=== PATIENT | male | born 1930 | race African-American/Black ===

== ENCOUNTER → 2016-05-29 | Outpatient (CLI) | payer MEDICARE, OTHER ==
[2016-05-29 11:18] LABS: HEMATOCRIT 34.1 % (37.9-51.0); HEMOGLOBIN 11.3 g/dL (13.5-17.0); HGB HCT DIFFERENCE -0.2; MEAN CORPUSCULAR HGB CONC 33.1 g/dL (32.0-36.0); MEAN CORPUSCULAR VOLUME 88 fl (80-97); RED BLOOD COUNT 3.88 10^6/uL (4.35-5.55); RED CELL DISTRIBUTION WIDTH 13.5 % (11.5-14.0)
[2016-05-29 11:30] LABS: APPEARANCE,URINE SLIGHTLY-CLOUDY; BILIRUBIN,URINE NEGATIVE (NEGATIVE); GLUCOSE, URINE 50 mg/dL (NEGATIVE); KETONES,URINE NEGATIVE (NEGATIVE); LEUKOCYTE ESTERASE,URINE TRACE (NEGATIVE); NITRITE,URINE NEGATIVE (NEGATIVE); PROTEIN,URINE >=500 mg/dL (NEGATIVE); URINE SPECIFIC GRAVITY 1.016; UROBILINOGEN,URINE NEGATIVE mg/dL (<2.0)
[2016-05-29 11:43] LABS: ANION GAP 10 (5-19); BLOOD UREA NITROGEN 35 mg/dL (7-20); CALCIUM 9.3 mg/dL (8.4-10.2); CARBON DIOXIDE 23 mmol/L (22-30); CHLORIDE 108 mmol/L (98-107); GLUCOSE 123 mg/dL (75-110); POTASSIUM 5.4 mmol/L (3.6-5.0); SODIUM 141.2 mmol/L (137-145)
== END ==
LOC: OD 10:22
PROVIDERS: ATTEND Internal Medicine Nephrology
DX: N18.2 Chronic kidney disease, stage 2 (mild) (principal); R80.9 Proteinuria, unspecified; E11.9 Type 2 diabetes mellitus without complications
CPT/HCPCS: 36415; 80048; 81001; 85027

== ENCOUNTER → 2016-09-13 | Outpatient (CLI) | payer MEDICARE, OTHER ==
--- NOTE | 2016-09-13 12:23 | XCELERA REPORT ---
[address] [address] Lower Extremity Venous Evaluation Name: MILO ORBB Age: 86 yrs Gender: Male : 1930 Patient Status: Outpatient Patient Location: Study Date: 09/13/2016 08:48 AM Procedure: A bilateral duplex scan of the lower extremity veins was performed. The evaluation included responses to compression and other maneuvers with patient in the supine and standing positions to assess venous insufficiency. Reason For Study: ULCER/PVD Ordering Physician: LISA DELEON Performed By: Crissy Silveira Right Sided Venous Evaluation Deep venous system evaluatiion shows patent veins with no obstruction or significant reflux identified. Sapheno Femoral junction: no reflux. Femoral vein reflux: no reflux. Greater Saphenous vein, Proximal thigh: reflux: no reflux. Greater Saphenous vein, Distal thigh: reflux: no reflux. Greater Saphenous vein, Proximal below knee: reflux: no reflux. No significant Perforators identified. Left Sided Venous Evaluation Deep venous system evaluatiion shows patent veins with no obstruction or significant reflux identified. Sapheno Femoral junction: no reflux. Femoral vein reflux: no reflux. Greater Saphenous vein, Proximal thigh: reflux: no reflux. Greater Saphenous vein, Distal thigh: reflux: no reflux. Greater Saphenous vein, Proximal below knee: reflux: no reflux. No significant Perforators identified. Interpretation Summary No duplex evidence of DVT or obstruction in the bilateral lower extremities. No significant venous reflux identified. : LISA DELEON > Lisa Deleon
--- NOTE | 2016-09-13 12:30 | XCELERA REPORT ---
[address] [address] Lower Extremity Arterial Evaluation Name: MILO ROBB Age: 86 yrs Gender: Male : 1930 Patient Status: Outpatient Patient Location: Study Date: 09/13/2016 08:20 AM Procedure: A color flow and duplex scan of the lower extremity arteries was performed bilaterally with velocity and waveform anaylsis. Reason For Study: ULCER/PVD Ordering Physician: LISA DELEON Performed By: Crissy Silveira Measurements and Calculations Right Left TRAVELING BUYER PSV 44.3 74.4 cm/sec Prox PFA PSV -24.4 44.1 cm/sec Prox SFA PSV 40.0 61.6 cm/sec Mid SFA PSV -50.5 -85.9 cm/sec Dist SFA PSV -54.1 -94.8 cm/sec Prox Pop A PSV 27.9 43.7 cm/sec Dist ILIANA PSV 73.3 65.6 cm/sec Prox GEOSPATIAL EXTRACTOR ANALYSIS PSV 30.3 41.9 cm/sec Dist Raquel A PSV 48.8 67.4 cm/sec Tonny Pedis PSV 13.9 18.6 cm/sec Right Side Arterial Evaluation Reduced velocity and monophasic waveforms noted from the Common Femoral artery to the infrageniculate vessels. Occluded distal Posterior Tibial artery, 50-99 % stenosis at the Aorta Iliac arteries. With sequential disease. Ankle Brachial index was not done. Left Side Arterial Evaluation Normal velocity and triphasic waveforms noted in the Common Femoral artery. Biphasic in the Popliteal, to the Anterior Tibial artery . occluded posterior Tibial artery. 20-49 % stenosis at the Femoral artery. Ankle Brachial index is 1.00. Interpretation Summary Severe hemodynamically significant lesions in the right lower extremity only, on duplex imaging, at rest. Moderate hemodynamically significant lesions in the left lower extremity only, on duplex imaging, at rest. : LISA DELEON > Lisa Deleon
== END ==
LOC: SP 07:57
PROVIDERS: ATTEND Surgery
DX: I73.9 Peripheral vascular disease, unspecified (principal); L97.312 Non-pressure chronic ulcer of right ankle with fat layer exposed
CPT/HCPCS: 93925; 93970

== ENCOUNTER → 2016-10-17 | Outpatient (CLI) | payer MEDICARE, OTHER ==
[2016-10-17 11:40] LABS: CREATININE RESULT 1.84 mg/dL (0.52-1.25)
== END ==
LOC: OD 10:34
PROVIDERS: ATTEND Surgery Vascular Surgery
DX: Z51.81 Encounter for therapeutic drug level monitoring (principal); Z79.899 Other long term (current) drug therapy
CPT/HCPCS: 36415; 82565

== ENCOUNTER → 2016-12-13 | Outpatient (CLI) | payer MEDICARE, OTHER ==
--- NOTE | 2016-12-15 10:01 | XCELERA REPORT ---
[address] [address] Lower Extremity Arterial Evaluation Name: MILO ROBB Age: 86 yrs Gender: Male : 1930 Patient Status: Outpatient Patient Location: Study Date: 12/13/2016 02:07 PM Procedure: A color flow and duplex scan of the lower extremity arteries was performed on the right with velocity and waveform anaylsis. Ankle brachial indicies performed. Reason For Study: RLE ULCER, FOLLOW UP ARTERIOGRAM Ordering Physician: LISA DELEON Performed By: Erlinda Casper Measurements and Calculations Right Left ORGANIZATIONAL PSYCHOLOGIST PSV 67.7 cm/sec Prox PFA PSV 52.2 cm/sec Prox SFA PSV 64.4 cm/sec Mid SFA PSV -82.1 cm/sec Dist SFA PSV -117.9 cm/sec Prox Pop A PSV 45.8 cm/sec Dist ILIANA PSV 104.6 cm/sec Dist BICYCLE MESSENGER PSV 31.2 cm/sec Tonny Pedis PSV 21.2 cm/sec Right Side Arterial Evaluation Slightly reduced velocity and biphasic waveforms noted from the Common Femoral artery to the Popliteal artery. Biphasic in the Anterior Tibial and monophasic in the Posterior Tibial artery , Monophasic Dorsalis Pedis. Fairly well maintained amplitude distally 20-49 % stenosis at the Aorta Iliac. With sequential disease. Ankle Brachial index not obtained due to non compressibility. Interpretation Summary Moderate hemodynamically significant lesions in the right lower extremity only, on duplex imaging, at rest. : LISA DELEON > Lisa Deleon
== END ==
LOC: SP 13:41
PROVIDERS: ATTEND Surgery
DX: L97.212 Non-pressure chronic ulcer of right calf with fat layer exposed (principal)
CPT/HCPCS: 93926

== ENCOUNTER → 2017-01-04 | Outpatient (CLI) | payer MEDICARE, OTHER ==
[2017-01-04 16:17] LABS: ABSOLUTE BASOPHILS # (AUTO) 0.1 10^3/uL (0.0-0.2); ABSOLUTE EOSINOPHILS # (AUTO) 0.4 10^3/uL (0.0-0.6); ABSOLUTE LYMPHOCYTES (AUTO) 1.4 10^3/uL (0.5-4.7); ABSOLUTE MONOCYTES (AUTO) 0.8 10^3/uL (0.1-1.4); ABSOLUTE NEUT (AUTO) 3.4 10^3/uL (1.7-8.2); BASOPHILS % (AUTO) 1.1 % (0-2); EOSINOPHILS % (AUTO) 6.2 % (0-6); HEMATOCRIT 29.2 % (37.9-51.0); HEMOGLOBIN 9.6 g/dL (13.5-17.0); HGB HCT DIFFERENCE -0.4; LYMPHOCYTES % (AUTO) 22.7 % (13-45); MEAN CORPUSCULAR HEMOGLOBIN 30.1 pg (27.0-33.4); MEAN CORPUSCULAR HGB CONC 33.1 g/dL (32.0-36.0); MEAN CORPUSCULAR VOLUME 91 fl (80-97); MONOCYTES % (AUTO) 12.8 % (3-13); RED BLOOD COUNT 3.21 10^6/uL (4.35-5.55); RED CELL DISTRIBUTION WIDTH 14.1 % (11.5-14.0); SEGMENTED NEUTROPHILS % (AUTO) 57.2 % (42-78)
[2017-01-04 16:40] LABS: ALANINE AMINOTRANSFERASE 21 U/L (21-72); ALBUMIN 3.1 g/dL (3.5-5.0); ALKALINE PHOSPHATASE 107 U/L (38-126); ANION GAP 9 (5-19); ASPARTATE AMINO TRANSFERASE 15 U/L (17-59); BILIRUBIN,DIRECT 0.4 mg/dL (0.0-0.4); BILIRUBIN,TOTAL 0.4 mg/dL (0.2-1.3); BLOOD UREA NITROGEN 33 mg/dL (7-20); C-REACTIVE PROTEIN 17.6 mg/L (<10.0); CALCIUM 8.7 mg/dL (8.4-10.2); CARBON DIOXIDE 21 mmol/L (22-30); CHLORIDE 109 mmol/L (98-107); GLUCOSE 134 mg/dL (75-110); POTASSIUM 4.1 mmol/L (3.6-5.0); SODIUM 139.2 mmol/L (137-145); TOTAL PROTEIN 6.4 g/dL (6.3-8.2)
[2017-01-04 16:57] LABS: ERYTHROCYTE SEDIMENTATION RATE 69 mm/hr (0-20)
== END ==
LOC: OD 15:02
PROVIDERS: ATTEND Surgery
DX: L97.212 Non-pressure chronic ulcer of right calf with fat layer exposed (principal)
CPT/HCPCS: 36415; 80053; 85025; 85652; 86140

== ENCOUNTER → 2017-01-24 | Outpatient (CLI) | payer MEDICARE, OTHER ==
[2017-01-24 13:56] LABS: ABSOLUTE BASOPHILS # (AUTO) 0.1 10^3/uL (0.0-0.2); ABSOLUTE EOSINOPHILS # (AUTO) 0.3 10^3/uL (0.0-0.6); ABSOLUTE LYMPHOCYTES (AUTO) 1.5 10^3/uL (0.5-4.7); ABSOLUTE MONOCYTES (AUTO) 1.1 10^3/uL (0.1-1.4); BASOPHILS % (AUTO) 0.7 % (0-2); EOSINOPHILS % (AUTO) 3.7 % (0-6); HEMATOCRIT 29.3 % (37.9-51.0); HGB HCT DIFFERENCE 0.7; MEAN CORPUSCULAR HEMOGLOBIN 30.5 pg (27.0-33.4); MEAN CORPUSCULAR HGB CONC 34.2 g/dL (32.0-36.0); MEAN CORPUSCULAR VOLUME 89 fl (80-97); MONOCYTES % (AUTO) 14.1 % (3-13); RED BLOOD COUNT 3.28 10^6/uL (4.35-5.55); RED CELL DISTRIBUTION WIDTH 13.7 % (11.5-14.0); SEGMENTED NEUTROPHILS % (AUTO) 62.5 % (42-78)
== END ==
LOC: LAB 13:16
PROVIDERS: ATTEND Surgery
DX: L97.212 Non-pressure chronic ulcer of right calf with fat layer exposed (principal)
CPT/HCPCS: 36415; 85025

== ENCOUNTER 2017-02-05 15:45 | Inpatient (IN) | payer MEDICARE, OTHER ==
[2017-02-05] MEDS ORDERED: INFLUENZA ADLT QUAD (36MOS+) 2017-18 VAC 0.5 ML SYR IM PRN (18:05)
--- NOTE | 2017-02-05 18:47 | RADIOLOGY REPORT (SQ) ---
EXAM DESCRIPTION: CHEST SINGLE VIEW COMPLETED DATE/TIME: 02/05/2017 6:25 pm REASON FOR STUDY: hypertension emergency COMPARISON: 12/08/2012 EXAM PARAMETERS: NUMBER OF VIEWS: One view. TECHNIQUE: Single frontal radiographic view of the chest acquired. RADIATION DOSE: NA LIMITATIONS: None. FINDINGS: LUNGS AND PLEURA: Stable chronic lung change without new opacities, masses or pneumothorax . No pleural effusion. MEDIASTINUM AND HILAR STRUCTURES: No masses. Contour normal. HEART AND VASCULAR STRUCTURES: Heart stable in size. Normal vasculature. BONES: No acute findings. HARDWARE: None in the chest. OTHER: No other significant finding. IMPRESSION: NO ACUTE RADIOGRAPHIC FINDING IN THE CHEST. NO SIGNIFICANT CHANGE FROM PRIOR STUDY. TECHNICAL DOCUMENTATION: JOB ID: [id number] [employer]- All Rights Reserved
[2017-02-05 19:14] LABS: ABSOLUTE BASOPHILS # (AUTO) 0.1 10^3/uL (0.0-0.2); ABSOLUTE EOSINOPHILS # (AUTO) 0.3 10^3/uL (0.0-0.6); ABSOLUTE LYMPHOCYTES (AUTO) 1.4 10^3/uL (0.5-4.7); ABSOLUTE MONOCYTES (AUTO) 0.8 10^3/uL (0.1-1.4); ABSOLUTE NEUT (AUTO) 4.5 10^3/uL (1.7-8.2); BASOPHILS % (AUTO) 0.9 % (0-2); EOSINOPHILS % (AUTO) 3.9 % (0-6); HEMATOCRIT 32.1 % (37.9-51.0); HEMOGLOBIN 10.6 g/dL (13.5-17.0); HGB HCT DIFFERENCE -0.3; LYMPHOCYTES % (AUTO) 20.2 % (13-45); MEAN CORPUSCULAR HEMOGLOBIN 29.9 pg (27.0-33.4); MEAN CORPUSCULAR VOLUME 91 fl (80-97); MONOCYTES % (AUTO) 11.8 % (3-13); RED BLOOD COUNT 3.54 10^6/uL (4.35-5.55); RED CELL DISTRIBUTION WIDTH 13.3 % (11.5-14.0); SEGMENTED NEUTROPHILS % (AUTO) 63.2 % (42-78); WHITE BLOOD COUNT 7.1 10^3/uL (4.0-10.5)
[2017-02-05 19:41] LABS: ALANINE AMINOTRANSFERASE 22 U/L (21-72); ALBUMIN 3.8 g/dL (3.5-5.0); ALKALINE PHOSPHATASE 112 U/L (38-126); ANION GAP 14 (5-19); ASPARTATE AMINO TRANSFERASE 20 U/L (17-59); BILIRUBIN,DIRECT 0.4 mg/dL (0.0-0.4); BILIRUBIN,TOTAL 0.5 mg/dL (0.2-1.3); BLOOD UREA NITROGEN 30 mg/dL (7-20); CALCIUM 9.1 mg/dL (8.4-10.2); CARBON DIOXIDE 23 mmol/L (22-30); CHLORIDE 109 mmol/L (98-107); CREATINE KINASE 108 U/L (55-170); CREATININE RESULT 1.86 mg/dL (0.52-1.25); GLUCOSE 106 mg/dL (75-110); POTASSIUM 4.2 mmol/L (3.6-5.0); SODIUM 145.7 mmol/L (137-145); TOTAL PROTEIN 7.8 g/dL (6.3-8.2)
[2017-02-05 20:20] LABS: CREATINE KINASE MB 0.75 ng/mL (<4.55)
[2017-02-05 20:25] LABS: TROPONIN I < 0.012 ng/mL
[2017-02-05] MEDS ORDERED: NORMAL SALINE 1000 ML 1,000 ML IV PRN (20:39)
[2017-02-05] MEDS ORDERED: NITROGLYCERIN/D5W 50 MG/250 ML RTUINJ IV PRN (20:43)
[2017-02-05] MEDS ORDERED: SAXAGLIPTIN HYDROCHLORIDE 2.5 MG PO SCH (20:45)
[2017-02-05] MEDS ORDERED: (PENDING PHARMACY ID) (Metoprolol Succinate [Toprol Xl 200 Mg Tablet] 200 MG) PO SCH (20:45)
[2017-02-05] MEDS ORDERED: ASPIRIN 81 MG TABLET, CHEWABLE PO ONE (21:00)
[2017-02-05] MEDS ORDERED: FINASTERIDE 5 MG TABLET PO ONE (21:00)
[2017-02-05] MEDS ORDERED: TAMSULOSIN HCL 0.4 MG CAP.SR.24H PO ONE (21:00)
[2017-02-05] MEDS ORDERED: SITAGLIPTIN PHOSPHATE 50 MG TABLET PO ONE (21:15)
[2017-02-05] MEDS ORDERED: METOPROLOL SUCCINATE 50 MG TAB.SR.24H PO ONE (21:15)
[2017-02-05] MEDS ORDERED: TIMOLOL MALEATE 0.5% OPH SOLN 5 ML OS ONE (22:00)
[2017-02-05] MEDS: LISINOPRIL 10 MG TABLET PO SCH (22:36)
[2017-02-05] MEDS: DOXEPIN HCL 10 MG CAPSULE PO SCH (22:37)
[2017-02-06 03:17] LABS: APPEARANCE,URINE CLEAR; BILIRUBIN,URINE NEGATIVE (NEGATIVE); GLUCOSE, URINE 50 mg/dL (NEGATIVE); KETONES,URINE NEGATIVE (NEGATIVE); LEUKOCYTE ESTERASE,URINE TRACE (NEGATIVE); NITRITE,URINE NEGATIVE (NEGATIVE); PROTEIN,URINE >=500 mg/dL (NEGATIVE); UROBILINOGEN,URINE NEGATIVE mg/dL (<2.0)
[2017-02-06 04:01] LABS: CREATINE KINASE MB 0.59 ng/mL (<4.55)
[2017-02-06 04:08] LABS: TROPONIN I < 0.012 ng/mL
--- NOTE | 2017-02-06 07:58 | EKG REPORT ---
SEVERITY:- BORDERLINE ECG - SINUS RHYTHM PROBABLE LEFT ATRIAL ABNORMALITY BORDERLINE LEFT AXIS DEVIATION BORDERLINE PROLONGED QT INTERVAL : Confirmed by: Moses Olea MD 06-Feb-2017 07:57:26
[2017-02-06] MEDS: ASPIRIN 81 MG TABLET, CHEWABLE PO SCH (09:13)
[2017-02-06] MEDS: FINASTERIDE 5 MG TABLET PO SCH (09:13)
[2017-02-06] MEDS: TAMSULOSIN HCL 0.4 MG CAP.SR.24H PO SCH (09:13)
[2017-02-06] MEDS: SITAGLIPTIN PHOSPHATE 50 MG TABLET PO SCH (09:14)
[2017-02-06] MEDS: LISINOPRIL 10 MG TABLET PO SCH ×2 (09:14→21:30)
[2017-02-06] MEDS: METOPROLOL SUCCINATE 50 MG TAB.SR.24H PO SCH (09:15)
[2017-02-06] MEDS: TIMOLOL MALEATE 0.5% OPH SOLN 5 ML OS SCH (09:16)
[2017-02-06 11:43] LABS: CREATINE KINASE MB 0.66 ng/mL (<4.55)
[2017-02-06 12:05] LABS: TROPONIN I < 0.012 ng/mL
[2017-02-06] MEDS: NICARDIPINE HCL RTU, ISO-OS 20 MG/200 ML RTUINJ IV PRN (15:43)
--- NOTE | 2017-02-06 17:50 | PDOC H&P ---
History of Present Illness Admission Date/PCP: 02/06/17 13:08 BEN WANG MD History of Present Illness: MILO ROBB is a 86 year old male, he has multiple comorbid conditions, he came to the office because he was not feeling well, in the office he was evaluated the blood pressure recorded was over 200 systolic, he was orthostatic. He was admitted directly from the office to the hospital for evaluation of his conditions. He has no chest pain, a complaint of being dizzy , there is no sensation of spinning of the surrounding, there is no presyncope or syncope spells. He denies any passage of black tarry stool, there is no hematochezia, there is no vomiting blood. 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 Renal/ Medical History: Reports: Other - Nephrotic syndrome/diabetic nephropathy, chronic kidney disease state that Malignancy Medical History: Reports: Other - Prostate cancer GI Medical History: Denies: Hepatitis, Hiatal Hernia Musculoskeltal Medical History: Reports: Arthritis, Gout - *Patient states he had an episode of gout 2011 Social History Smoking Status: Former Smoker Last Time Smoked: 25 years Frequency of Alcohol Use: Occasional Hx Recreational Drug Use: No Drugs: None Hx Prescription Drug Abuse: No Family History Family History: Reviewed & Not Pertinent, Other Parental Family History Reviewed: Yes Children Family History Reviewed: Yes Sibling(s) Family History Reviewed.: Yes Medication/Allergy Home Medications: Aspirin [Aspirin 81 mg Chewable Tablet] 81 mg PO DAILY 02/05/17 Doxepin HCl [Sinequan 10 Mg Capsule] 10 mg PO QHS 02/05/17 Finasteride [Proscar 5 mg Tablet] 5 mg PO DAILY 02/05/17 Lisinopril [Prinivil 40 mg Tablet] 40 mg PO Q12 02/05/17 Metoprolol Succinate [Toprol XL 200 mg Tablet] 200 mg PO DAILY 02/05/17 Saxagliptin Hydrochloride [Onglyza] 2.5 mg PO DAILY 02/05/17 Solifenacin Succinate [Vesicare] 10 mg PO DAILY 02/05/17 Tamsulosin HCl [Flomax 0.4 mg Cap.sr] 0.4 mg PO DAILY 02/05/17 Timolol Maleate [Timoptic 0.5% Oph Soln 5 ml] 1 drop OS DAILY 02/05/17 Allergies/Adverse Reactions: No Known Allergies Allergy (Verified 02/09/13 18:36) Review of Systems Constitutional: PRESENT: fatigue, weakness Eyes: ABSENT: visual disturbances Ears: ABSENT: hearing changes Cardiovascular: ABSENT: chest pain, dyspnea on exertion, edema, orthropnea, palpitations Respiratory: ABSENT: cough, hemoptysis Gastrointestinal: ABSENT: abdominal pain, constipation, diarrhea, hematemesis, hematochezia, nausea, vomiting Genitourinary: ABSENT: dysuria, hematuria Musculoskeletal: ABSENT: joint swelling Integumentary: ABSENT: rash, wounds Neurological: ABSENT: abnormal gait, abnormal speech, confusion, dizziness, focal weakness, syncope Psychiatric: ABSENT: anxiety, depression, homidical ideation, suicidal ideation Endocrine: ABSENT: cold intolerance, heat intolerance, menstrual abnormalities, polydipsia, polyuria Hematologic/Lymphatic: ABSENT: easy bleeding, easy bruising, lymphadenopathy Physical Exam Vital Signs: Temp Pulse Resp BP Pulse Ox 98.3 F 57 L 16 120/75 98 02/06/17 16:27 02/06/17 16:27 02/06/17 16:30 02/06/17 17:00 02/06/17 16:30 Intake & Output 02/05/17 02/06/17 02/07/17 06:59 06:59 06:59 Intake Total 346 695 Output Total 350 200 Balance -4 495 Weight 79.1 kg Head exam: PRESENT: atraumatic, normocephalic Eye exam: PRESENT: conjunctiva pink, EOMI, PERRLA Mouth exam: PRESENT: moist Neck exam: PRESENT: full ROM Respiratory exam: PRESENT: rales Cardiovascular exam: PRESENT: RRR, +S1, +S2, systolic murmur Pulses: PRESENT: normal dorsalis pedis pul, +2 pedal pulses bilateral Vascular exam: PRESENT: normal capillary refill GI/Abdominal exam: PRESENT: normal bowel sounds, soft Rectal exam: PRESENT: deferred Neurological exam: PRESENT: alert, awake, oriented to person, oriented to place , oriented to time, oriented to situation, CN II-XII grossly intact Psychiatric exam: PRESENT: appropriate affect, normal mood Skin exam: PRESENT: dry, intact, warm Results Laboratory Results: 02/05/17 18:36 02/05/17 18:36 02/05/17 02/05/17 02/06/17 18:36 18:36 02:30 WBC 7.1 RBC 3.54 L Hgb 10.6 L Hct 32.1 L MCV 91 MCH 29.9 MCHC 33.0 RDW 13.3 Plt Count 289 Seg Neutrophils % 63.2 Lymphocytes % 20.2 Monocytes % 11.8 Eosinophils % 3.9 Basophils % 0.9 Absolute Neutrophils 4.5 Absolute Lymphocytes 1.4 Absolute Monocytes 0.8 Absolute Eosinophils 0.3 Absolute Basophils 0.1 Sodium 145.7 H Potassium 4.2 Chloride 109 H Carbon Dioxide 23 Anion Gap 14 BUN 30 H Creatinine 1.86 H Est GFR ( Amer) 42 L Est GFR (Non-Af Amer) 35 L Glucose 106 Calcium 9.1 Total Bilirubin 0.5 AST 20 ALT 22 Alkaline Phosphatase 112 Total Protein 7.8 Albumin 3.8 Urine Color YELLOW Urine Appearance CLEAR Urine pH 7.0 Ur Specific [place] 1.010 Urine Protein >=500 H Urine Glucose (UA) 50 H Urine Ketones NEGATIVE Urine Blood SMALL H Urine Nitrite NEGATIVE Ur Leukocyte Esterase TRACE H Urine WBC (Auto) 22 Urine RBC (Auto) 9 02/05/17 02/05/17 02/06/17 18:36 19:20 03:10 Creatine Kinase 108 83 CK-MB (CK-2) 0.75 Troponin I < 0.012 02/06/17 02/06/17 02/06/17 03:10 10:51 10:51 Creatine Kinase 90 CK-MB (CK-2) 0.59 0.66 Troponin I < 0.012 < 0.012 Impressions: Chest X-Ray 02/05/17 17:28 IMPRESSION: NO ACUTE RADIOGRAPHIC FINDING IN THE CHEST. NO SIGNIFICANT CHANGE FROM PRIOR STUDY. Assessment & Plan - Diagnosis (1) Hypertensive emergency Is this a current diagnosis for this admission?: Yes Plan: The blood pressure is over 200 systolic, he is orthostatic the blood pressure standing is 170 the blood pressure sitting is 220, patient admitted to the hospital, started on IV nitroglycerin infusion (2) Chronic kidney disease, stage III (moderate) Is this a current diagnosis for this admission?: Yes (3) Type 2 diabetes mellitus Qualifiers: Diabetes mellitus complication status: with kidney complications Diabetes mellitus complication detail: with chronic kidney disease Diabetes mellitus 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
--- NOTE | 2017-02-06 18:07 | PDOC PROGRESS REPORT ---
Subjective Progress Note for:: 02/06/17 Subjective:: Patient was admitted yesterday because of emergency hypertension, the blood pressure was still elevated despite taking maximum dose of intravenous nitroglycerin infusion, he was transferred to ICU to be treated with IV Cardene infusion Physical Exam Vital Signs: Temp Pulse Resp BP Pulse Ox 98.3 F 57 L 16 120/75 98 02/06/17 16:27 02/06/17 16:27 02/06/17 16:30 02/06/17 17:00 02/06/17 16:30 Intake & Output 02/05/17 02/06/17 02/07/17 06:59 06:59 06:59 Intake Total 346 695 Output Total 350 200 Balance -4 495 Weight 79.1 kg General appearance: PRESENT: no acute distress Head exam: PRESENT: atraumatic, normocephalic Eye exam: PRESENT: PERRLA Ear exam: PRESENT: normal external ear exam Mouth exam: PRESENT: moist, tongue midline Neck exam: PRESENT: full ROM Respiratory exam: PRESENT: clear to auscultation josse Cardiovascular exam: PRESENT: RRR, +S1, +S2 Vascular exam: PRESENT: normal capillary refill GI/Abdominal exam: PRESENT: normal bowel sounds, soft Rectal exam: PRESENT: deferred Neurological exam: PRESENT: alert. ABSENT: motor sensory deficit Psychiatric exam: PRESENT: appropriate affect, normal mood Skin exam: PRESENT: dry, intact, warm Results Laboratory Results: 02/05/17 18:36 02/05/17 18:36 02/05/17 02/05/17 02/06/17 18:36 18:36 02:30 WBC 7.1 RBC 3.54 L Hgb 10.6 L Hct 32.1 L MCV 91 MCH 29.9 MCHC 33.0 RDW 13.3 Plt Count 289 Seg Neutrophils % 63.2 Lymphocytes % 20.2 Monocytes % 11.8 Eosinophils % 3.9 Basophils % 0.9 Absolute Neutrophils 4.5 Absolute Lymphocytes 1.4 Absolute Monocytes 0.8 Absolute Eosinophils 0.3 Absolute Basophils 0.1 Sodium 145.7 H Potassium 4.2 Chloride 109 H Carbon Dioxide 23 Anion Gap 14 BUN 30 H Creatinine 1.86 H Est GFR ( Amer) 42 L Est GFR (Non-Af Amer) 35 L Glucose 106 Calcium 9.1 Total Bilirubin 0.5 AST 20 ALT 22 Alkaline Phosphatase 112 Total Protein 7.8 Albumin 3.8 Urine Color YELLOW Urine Appearance CLEAR Urine pH 7.0 Ur Specific [place] 1.010 Urine Protein >=500 H Urine Glucose (UA) 50 H Urine Ketones NEGATIVE Urine Blood SMALL H Urine Nitrite NEGATIVE Ur Leukocyte Esterase TRACE H Urine WBC (Auto) 22 Urine RBC (Auto) 9 02/05/17 02/05/17 02/06/17 18:36 19:20 03:10 Creatine Kinase 108 83 CK-MB (CK-2) 0.75 Troponin I < 0.012 02/06/17 02/06/17 02/06/17 03:10 10:51 10:51 Creatine Kinase 90 CK-MB (CK-2) 0.59 0.66 Troponin I < 0.012 < 0.012 Impressions: Chest X-Ray 02/05/17 17:28 IMPRESSION: NO ACUTE RADIOGRAPHIC FINDING IN THE CHEST. NO SIGNIFICANT CHANGE FROM PRIOR STUDY. Assessment & Plan - Diagnosis (1) Hypertensive emergency Is this a current diagnosis for this admission?: Yes Plan: Patient transferred to ICU to be treated with IV Cardene infusion (2) Chronic kidney disease, stage III (moderate) Is this a current diagnosis for this admission?: Yes (3) Type 2 diabetes mellitus Qualifiers: Diabetes mellitus complication status: with kidney complications Diabetes mellitus complication detail: with chronic kidney disease Diabetes mellitus care home insulin use: without care home use Chronic kidney disease stage: stage 3 (moderate) Qualified Code(s): E11.22 - Type 2 diabetes mellitus with diabetic chronic kidney disease; N18.3 - Chronic kidney disease, stage 3 ( moderate); N18.3 - Chronic kidney disease, stage 3 (moderate) Is this a current diagnosis for this admission?: Yes (4) Pulmonary fibrosis Is this a current diagnosis for this admission?: Yes
[2017-02-06] MEDS: DOXEPIN HCL 10 MG CAPSULE PO SCH (21:29)
[2017-02-07 05:48] LABS: ANION GAP 12 (5-19); BLOOD UREA NITROGEN 32 mg/dL (7-20); CALCIUM 8.9 mg/dL (8.4-10.2); CARBON DIOXIDE 21 mmol/L (22-30); CHLORIDE 110 mmol/L (98-107); GLUCOSE 129 mg/dL (75-110); POTASSIUM 4.2 mmol/L (3.6-5.0); SODIUM 143.3 mmol/L (137-145)
[2017-02-07] MEDS: NICARDIPINE HCL RTU, ISO-OS 20 MG/200 ML RTUINJ IV PRN ×2 (08:30→19:05)
[2017-02-07] MEDS: SITAGLIPTIN PHOSPHATE 50 MG TABLET PO SCH (09:27)
[2017-02-07] MEDS: METOPROLOL SUCCINATE 50 MG TAB.SR.24H PO SCH (09:27)
[2017-02-07] MEDS: ASPIRIN 81 MG TABLET, CHEWABLE PO SCH (09:27)
[2017-02-07] MEDS: FINASTERIDE 5 MG TABLET PO SCH (09:27)
[2017-02-07] MEDS: TIMOLOL MALEATE 0.5% OPH SOLN 5 ML OS SCH (09:28)
[2017-02-07] MEDS: LISINOPRIL 10 MG TABLET PO SCH ×2 (09:28→22:15)
[2017-02-07] MEDS: TAMSULOSIN HCL 0.4 MG CAP.SR.24H PO SCH (09:28)
--- NOTE | 2017-02-07 15:32 | PDOC PROGRESS REPORT ---
Subjective Progress Note for:: 02/07/17 Subjective:: Patient was seen in ICU, the blood pressure still elevated, still requiring nicardipine infusion Physical Exam Vital Signs: Temp Pulse Resp BP Pulse Ox 98.4 F 61 13 152/75 H 98 02/07/17 14:00 02/07/17 07:37 02/07/17 14:15 02/07/17 14:15 02/07/17 14:15 Intake & Output 02/06/17 02/07/17 02/08/17 06:59 06:59 06:59 Intake Total 346 1304 680 Output Total 350 1425 525 Balance -4 -121 155 Weight 79.1 kg 76.3 kg General appearance: PRESENT: no acute distress Head exam: PRESENT: atraumatic, normocephalic Eye exam: PRESENT: conjunctiva pink, EOMI, PERRLA Ear exam: PRESENT: normal external ear exam Mouth exam: PRESENT: moist, tongue midline Neck exam: PRESENT: full ROM Cardiovascular exam: PRESENT: RRR, +S1, +S2 Pulses: PRESENT: normal dorsalis pedis pul, +2 pedal pulses bilateral Vascular exam: PRESENT: normal capillary refill GI/Abdominal exam: PRESENT: normal bowel sounds, soft Rectal exam: PRESENT: deferred Neurological exam: PRESENT: alert Psychiatric exam: PRESENT: appropriate affect, normal mood Skin exam: PRESENT: dry, intact, warm Results Laboratory Results: 02/05/17 18:36 02/07/17 05:21 02/07/17 05:21 Sodium 143.3 Potassium 4.2 Chloride 110 H Carbon Dioxide 21 L Anion Gap 12 BUN 32 H Creatinine 1.70 H Est GFR ( Amer) 46 L Est GFR (Non-Af Amer) 38 L Glucose 129 H Calcium 8.9 02/05/17 02/05/17 02/06/17 18:36 19:20 03:10 Creatine Kinase 108 83 CK-MB (CK-2) 0.75 Troponin I < 0.012 02/06/17 02/06/17 02/06/17 03:10 10:51 10:51 Creatine Kinase 90 CK-MB (CK-2) 0.59 0.66 Troponin I < 0.012 < 0.012 Impressions: Chest X-Ray 02/05/17 17:28 IMPRESSION: NO ACUTE RADIOGRAPHIC FINDING IN THE CHEST. NO SIGNIFICANT CHANGE FROM PRIOR STUDY. 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
[2017-02-07] MEDS: DOXEPIN HCL 10 MG CAPSULE PO SCH (22:15)
[2017-02-07] MEDS: ISOSORB DINIT/HYDRALAZINE HCL 20-37.5 MG TABLET PO SCH (22:15)
--- NOTE | 2017-02-08 01:45 | RADIOLOGY REPORT (SQ) ---
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 TECHNIQUE: Axial images acquired through the brain without intravenous contrast. Images reviewed wi th bone, brain and subdural windows. Images stored on PACS. All CT scanners at this facility use dose modulation, iterative reconstruction, and/or weight based d osing when appropriate to reduce radiation dose to as low as reasonably achievable (ALARA). [facility]: Dose Right [facility]: CareDose [facility]: Dose Right [facility]: Teradose 4D [facility]: Smart TwoF RADIATION DOSE: Up-to-date CT equipment and radiation dose reduction techniques were employed. CTDIv ol: 64.6 mGy. DLP: 1292 mGy-cm. mGy. LIMITATIONS: None. FINDINGS: VENTRICLES: Normal size and contour. CEREBRUM: No masses. No hemorrhage. No midline shift. No evidence for acute infarction. Moderate w sb matter microangiopathy. [id number] cerebral volume loss. 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 Stable. CEREBELLUM: No masses. No hemorrhage. No alteration of density. No evidence for acute infarction. EXTRAAXIAL SPACES: No fluid collections. No masses. ORBITS AND GLOBE: No intra- or extraconal masses. Normal contour of globe without masses. CALVARIUM: No fracture. PARANASAL SINUSES: No fluid or mucosal thickening. SOFT TISSUES: No mass or hematoma. OTHER: Atherosclerosis. Moderate disc desiccation spondylosis. IMPRESSION: No acute findings. EVIDENCE OF ACUTE STROKE: NO. COMMENT: Quality ID # [id number]: Final reports with documentation of one or more dose reduction techniques (e.g., Automated exposure control, adjustment of the mA and/or kV according to patient size, use of iterative reconstruction technique) TECHNICAL DOCUMENTATION: JOB ID: [id number] [employer]- All Rights Reserved
[2017-02-08] MEDS: ISOSORB DINIT/HYDRALAZINE HCL 20-37.5 MG TABLET PO SCH ×3 (05:22→21:03)
[2017-02-08 05:54] LABS: ANION GAP 11 (5-19); BLOOD UREA NITROGEN 43 mg/dL (7-20); CALCIUM 8.3 mg/dL (8.4-10.2); CARBON DIOXIDE 21 mmol/L (22-30); CHLORIDE 110 mmol/L (98-107); CREATININE RESULT 1.94 mg/dL (0.52-1.25); GLUCOSE 135 mg/dL (75-110); POTASSIUM 4.5 mmol/L (3.6-5.0); SODIUM 142.2 mmol/L (137-145)
[2017-02-08] MEDS: TAMSULOSIN HCL 0.4 MG CAP.SR.24H PO SCH (09:05)
[2017-02-08] MEDS: METOPROLOL SUCCINATE 50 MG TAB.SR.24H PO SCH (09:05)
[2017-02-08] MEDS: LISINOPRIL 10 MG TABLET PO SCH ×2 (09:06→21:00)
[2017-02-08] MEDS: FINASTERIDE 5 MG TABLET PO SCH (09:06)
[2017-02-08] MEDS: SITAGLIPTIN PHOSPHATE 50 MG TABLET PO SCH (09:07)
[2017-02-08] MEDS: TIMOLOL MALEATE 0.5% OPH SOLN 5 ML OS SCH (09:07)
[2017-02-08] MEDS: ASPIRIN 81 MG TABLET, CHEWABLE PO SCH (09:07)
--- NOTE | 2017-02-08 18:39 | PDOC PROGRESS REPORT ---
Subjective Progress Note for:: 02/08/17 Subjective:: Patient was seen by the bedside, he apparently had seizure witnessed last night by ICU nurse, the CAT scan of the head that was done was negative, MRI and to be ordered. Presently off Cardene infusion Physical Exam Vital Signs: Temp Pulse Resp BP Pulse Ox 97.3 F 63 26 H 132/68 H 94 02/08/17 18:00 02/08/17 18:00 02/08/17 18:00 02/08/17 18:00 02/08/17 18:00 Intake & Output 02/07/17 02/08/17 02/09/17 06:59 06:59 06:59 Intake Total 1304 1323 730 Output Total 1425 950 400 Balance -121 373 330 Weight 76.3 kg 78 kg General appearance: PRESENT: no acute distress Eye exam: PRESENT: PERRLA Respiratory exam: PRESENT: clear to auscultation josse Cardiovascular exam: PRESENT: +S1, +S2 GI/Abdominal exam: PRESENT: soft Neurological exam: PRESENT: alert Results Laboratory Results: 02/05/17 18:36 02/08/17 05:18 02/08/17 05:18 Sodium 142.2 Potassium 4.5 Chloride 110 H Carbon Dioxide 21 L Anion Gap 11 BUN 43 H Creatinine 1.94 H Est GFR ( Amer) 40 L Est GFR (Non-Af Amer) 33 L Glucose 135 H Calcium 8.3 L 02/06/17 02:30 Clean Catch Midstream Urine Culture - Final NO GROWTH 2 DAYS 02/05/17 02/05/17 02/06/17 18:36 19:20 03:10 Creatine Kinase 108 83 CK-MB (CK-2) 0.75 Troponin I < 0.012 02/06/17 02/06/17 02/06/17 03:10 10:51 10:51 Creatine Kinase 90 CK-MB (CK-2) 0.59 0.66 Troponin I < 0.012 < 0.012 Impressions: Chest X-Ray 02/05/17 17:28 IMPRESSION: NO ACUTE RADIOGRAPHIC FINDING IN THE CHEST. NO SIGNIFICANT CHANGE FROM PRIOR STUDY. Head CT 02/07/17 23:23 IMPRESSION: No acute findings. EVIDENCE OF ACUTE STROKE: NO. 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 EEG ordered.
--- NOTE | 2017-02-08 19:44 | RADIOLOGY REPORT (SQ) ---
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 Images stored on PACS. LIMITATIONS: None. FINDINGS: ANATOMY: No anomalies. Normal vascular flow voids. Pituitary fossa normal. CSF SPACES: Atrophy induced prominence of ventricles and CSF spaces. CEREBRUM: High signal intensity lesions scattered throughout the white matter on FLAIR imaging with d istribution suggesting micro-vascular ischemic changes. No evidence of hemorrhage, mass, or extraaxi al fluid collection. POSTERIOR FOSSA: No signal alteration. No hemorrhage. No edema, masses or mass effect. Internal adam tory canals, cerebello-pontine angles, mastoids normal. DIFFUSION IMAGING: Negative for acute or sub-acute infarction. ORBITS: No masses. Globes normal. PARANASAL SINUSES: No fluid levels. Mucosa normal. OTHER: No other significant finding. IMPRESSION: NO ACUTE ISCHEMIA, HEMORRHAGE, OR MASS LESION. NO SIGNIFICANT CHANGE FROM PRIOR STUDY. EVIDENCE OF ACUTE STROKE: NO. TECHNICAL DOCUMENTATION: JOB ID: [id number] [employer] (ABAM)- All Rights Reserved
[2017-02-08] MEDS: DOXEPIN HCL 10 MG CAPSULE PO SCH (21:02)
--- NOTE | 2017-02-08 21:07 | Physician Advisory Note ---
Physician Advisor ProgressNote .: Pursuant to the plan for [facility], I have reviewed the medical record for this patient. Physician Advisor Statement: Please document the symptoms / end-organ effects caused by this pt's hypertensive emergency. "Hypertensive emergency" = pt has bSI597+ &/or yNR502+ , & sx/effects of possible organ damage, such as acute neuro dx, RIOS, CP, SOB, acute exac of CHF, ARF, ... & we need documentation of what sx/effects were caused by the HTN. "HTNive urgency" = pt has cHI483+ &/or qXT554+ , without associated sx Thanks! CK
[2017-02-09] MEDS: ISOSORB DINIT/HYDRALAZINE HCL 20-37.5 MG TABLET PO SCH ×3 (05:02→21:11)
[2017-02-09 05:21] LABS: ANION GAP 12 (5-19); BLOOD UREA NITROGEN 54 mg/dL (7-20); CALCIUM 8.4 mg/dL (8.4-10.2); CARBON DIOXIDE 20 mmol/L (22-30); CHLORIDE 110 mmol/L (98-107); CREATININE RESULT 2.22 mg/dL (0.52-1.25); GLUCOSE 121 mg/dL (75-110); POTASSIUM 4.3 mmol/L (3.6-5.0); SODIUM 142.2 mmol/L (137-145)
[2017-02-09] MEDS: TAMSULOSIN HCL 0.4 MG CAP.SR.24H PO SCH (10:01)
[2017-02-09] MEDS: ASPIRIN 81 MG TABLET, CHEWABLE PO SCH (10:02)
[2017-02-09] MEDS: LISINOPRIL 10 MG TABLET PO SCH ×2 (10:02→21:11)
[2017-02-09] MEDS: SITAGLIPTIN PHOSPHATE 50 MG TABLET PO SCH (10:03)
[2017-02-09] MEDS: METOPROLOL SUCCINATE 50 MG TAB.SR.24H PO SCH (10:04)
[2017-02-09] MEDS: FINASTERIDE 5 MG TABLET PO SCH (10:05)
[2017-02-09] MEDS: TIMOLOL MALEATE 0.5% OPH SOLN 5 ML OS SCH (10:06)
--- NOTE | 2017-02-09 19:14 | PDOC PROGRESS REPORT ---
Subjective Progress Note for:: 02/09/17 Subjective:: Patient is seen by the bedside, he had no onset seizure MRI brain was done there is no mass or an acute lesion found, EEG is pending Physical Exam Vital Signs: Temp Pulse Resp BP Pulse Ox 97.4 F 62 16 150/63 H 97 02/09/17 17:45 02/09/17 17:46 02/09/17 17:45 02/09/17 17:45 02/09/17 17:45 Intake & Output 02/08/17 02/09/17 02/10/17 06:59 06:59 06:59 Intake Total 1323 730 490 Output Total 950 900 800 Balance 373 -170 -310 Weight 78 kg 76.7 kg General appearance: PRESENT: no acute distress, well-developed, well-nourished Head exam: PRESENT: atraumatic, normocephalic Eye exam: PRESENT: conjunctiva pink, EOMI, PERRLA Ear exam: PRESENT: normal external ear exam Mouth exam: PRESENT: moist, tongue midline Neck exam: PRESENT: full ROM Respiratory exam: PRESENT: clear to auscultation josse Cardiovascular exam: PRESENT: RRR, +S1, +S2 Pulses: PRESENT: normal dorsalis pedis pul, +2 pedal pulses bilateral Vascular exam: PRESENT: normal capillary refill GI/Abdominal exam: PRESENT: normal bowel sounds, soft Rectal exam: PRESENT: deferred Neurological exam: PRESENT: alert. ABSENT: motor sensory deficit Psychiatric exam: PRESENT: appropriate affect, normal mood Skin exam: PRESENT: dry, intact, warm. ABSENT: cyanosis, rash Results Laboratory Results: 02/05/17 18:36 02/09/17 03:44 02/09/17 03:44 Sodium 142.2 Potassium 4.3 Chloride 110 H Carbon Dioxide 20 L Anion Gap 12 BUN 54 H Creatinine 2.22 H Est GFR ( Amer) 34 L Est GFR (Non-Af Amer) 28 L Glucose 121 H Calcium 8.4 02/05/17 02/05/17 02/06/17 18:36 19:20 03:10 Creatine Kinase 108 83 CK-MB (CK-2) 0.75 Troponin I < 0.012 02/06/17 02/06/17 02/06/17 03:10 10:51 10:51 Creatine Kinase 90 CK-MB (CK-2) 0.59 0.66 Troponin I < 0.012 < 0.012 Impressions: Chest X-Ray 02/05/17 17:28 IMPRESSION: NO ACUTE RADIOGRAPHIC FINDING IN THE CHEST. NO SIGNIFICANT CHANGE FROM PRIOR STUDY. Head CT 02/07/17 23:23 IMPRESSION: No acute findings. EVIDENCE OF ACUTE STROKE: NO. Head MRI 02/08/17 00:00 IMPRESSION: NO ACUTE ISCHEMIA, HEMORRHAGE, OR MASS LESION. NO SIGNIFICANT CHANGE FROM PRIOR STUDY. EVIDENCE OF ACUTE STROKE: NO. Assessment & Plan - Diagnosis (1) Hypertensive emergency Is this a current diagnosis for this admission?: Yes (2) Chronic kidney disease, stage III (moderate) Is this a current diagnosis for this admission?: Yes (3) Type 2 diabetes mellitus Qualifiers: Diabetes mellitus complication status: with kidney complications Diabetes mellitus complication detail: with chronic kidney disease Diabetes mellitus jail insulin use: without meterman use Chronic kidney disease stage: stage 3 (moderate) Qualified Code(s): E11.22 - Type 2 diabetes mellitus with diabetic chronic kidney disease; N18.3 - Chronic kidney disease, stage 3 ( moderate); N18.3 - Chronic kidney disease, stage 3 (moderate) Is this a current diagnosis for this admission?: Yes (4) Pulmonary fibrosis Is this a current diagnosis for this admission?: Yes (5) New onset seizure Is this a current diagnosis for this admission?: Yes (6) Hypertensive encephalopathy Is this a current diagnosis for this admission?: Yes Plan: The new onset seizure could be a manifestation of hypertensive encephalopathy (7) Acute kidney injury Is this a current diagnosis for this admission?: Yes Plan: There is acute kidney injury probably related to blood pressure being relatively normal
[2017-02-09] MEDS: DOXEPIN HCL 10 MG CAPSULE PO SCH (21:11)
[2017-02-10 05:28] LABS: ANION GAP 10 (5-19); BLOOD UREA NITROGEN 57 mg/dL (7-20); CALCIUM 8.3 mg/dL (8.4-10.2); CARBON DIOXIDE 21 mmol/L (22-30); CHLORIDE 111 mmol/L (98-107); CREATININE RESULT 2.13 mg/dL (0.52-1.25); GLUCOSE 132 mg/dL (75-110); POTASSIUM 4.4 mmol/L (3.6-5.0)
[2017-02-10] MEDS: ISOSORB DINIT/HYDRALAZINE HCL 20-37.5 MG TABLET PO SCH ×2 (06:24→13:25)
[2017-02-10] MEDS: FINASTERIDE 5 MG TABLET PO SCH (09:35)
[2017-02-10] MEDS: METOPROLOL SUCCINATE 50 MG TAB.SR.24H PO SCH (09:35)
[2017-02-10] MEDS: TAMSULOSIN HCL 0.4 MG CAP.SR.24H PO SCH (09:35)
[2017-02-10] MEDS: TIMOLOL MALEATE 0.5% OPH SOLN 5 ML OS SCH (09:36)
[2017-02-10] MEDS: LISINOPRIL 10 MG TABLET PO SCH (09:36)
[2017-02-10] MEDS: SITAGLIPTIN PHOSPHATE 50 MG TABLET PO SCH (09:36)
[2017-02-10] MEDS: ASPIRIN 81 MG TABLET, CHEWABLE PO SCH (09:36)
--- NOTE | 2017-02-10 12:55 | PDOC DISCHARGE SUMMARY ---
General - Admit/Disc Date/PCP Admission Date/Primary Care Provider: 02/06/17 13:08 BEN WANG MD Discharge Date: 02/10/17 - Discharge Diagnosis (1) Hypertensive encephalopathy Is this a current diagnosis for this admission?: Yes (2) Hypertensive emergency Is this a current diagnosis for this admission?: Yes (3) Chronic kidney disease, stage III (moderate) Is this a current diagnosis for this admission?: Yes (4) Type 2 diabetes mellitus Is this a current diagnosis for this admission?: Yes (5) Pulmonary fibrosis Is this a current diagnosis for this admission?: Yes (6) New onset seizure Is this a current diagnosis for this admission?: Yes (7) Acute kidney injury Is this a current diagnosis for this admission?: Yes - Additional Information Discharge Activity: Activity As Tolerated Home Medications: Aspirin [Aspirin 81 mg Chewable Tablet] 81 mg PO DAILY 02/05/17 Doxepin HCl [Sinequan 10 mg Capsule] 10 mg PO QHS 02/05/17 Finasteride [Proscar 5 mg Tablet] 5 mg PO DAILY 02/05/17 Lisinopril [Prinivil 40 mg Tablet] 40 mg PO Q12 02/05/17 Metoprolol Succinate [Toprol XL 200 mg Tablet] 200 mg PO DAILY 02/05/17 Saxagliptin Hydrochloride [Onglyza] 2.5 mg PO DAILY 02/05/17 Solifenacin Succinate [Vesicare] 10 mg PO DAILY 02/05/17 Tamsulosin HCl [Flomax 0.4 mg Cap.sr] 0.4 mg PO DAILY 02/05/17 Timolol Maleate [Timoptic 0.5% Oph Soln 5 ml] 1 drop OS DAILY 02/05/17 Isosorb Dinit/Hydralazine HCl [Bidil 20-37.5 mg Tablet] 1 tab PO Q8 #360 tablet 02/10/17 History of Present Illness History of Present Illness: MILO ROBB is a 86 year old male, he has multiple comorbid conditions, he came to the office because he was not feeling well, in the office he was evaluated the blood pressure recorded was over 200 systolic, he was orthostatic. He was admitted directly from the office to the hospital for evaluation of his conditions. He has no chest pain, a complaint of being dizzy , there is no sensation of spinning of the surrounding, there is no presyncope or syncope spells. He denies any passage of black tarry stool, there is no hematochezia, there is no vomiting blood. Hospital Course Hospital Course: Patient was admitted for the management of hypertensive emergency with associated hypertensive encephalopathy, he had episode of seizure in the hospital witnessed by the nursing staff, a CAT scan of the head and MRI of the brain was done it was negative for any acute pathology there was no mass lesion identified, EEG was ordered but was not done. He was treated initially with intravenous nitroglycerin infusion for the control blood pressure despite achieving maximum dose allowed in the intermediate care unit blood pressure remained uncontrolled. He was transferred to intensive care unit and he was treated with intravenous Cardene infusion, medication was adjusted, he was started on BiDil in addition to lisinopril and metoprolol. Patient was not treated with antiseizure medication because it was felt that the seizure is most likely a manifestation of hypertensive encephalopathy, with adequate control blood pressure there is no indication for anti-seizure medication. Physical Exam Vital Signs: Temp Pulse Resp BP Pulse Ox 98.0 F 66 18 149/68 H 95 02/10/17 11:34 02/10/17 11:34 02/10/17 11:34 02/10/17 11:34 02/10/17 11:34 Intake & Output 02/09/17 02/10/17 02/11/17 06:59 06:59 06:59 Intake Total 730 646 480 Output Total 900 1575 300 Balance -170 -929 180 Weight 76.7 kg 80.1 kg General appearance: PRESENT: no acute distress, well-developed, well-nourished Head exam: PRESENT: atraumatic, normocephalic Eye exam: PRESENT: conjunctiva pink, EOMI, PERRLA Ear exam: PRESENT: normal external ear exam Mouth exam: PRESENT: moist, tongue midline Neck exam: PRESENT: full ROM Respiratory exam: PRESENT: clear to auscultation josse Cardiovascular exam: PRESENT: RRR, +S1, +S2 Pulses: PRESENT: normal dorsalis pedis pul, +2 pedal pulses bilateral Vascular exam: PRESENT: normal capillary refill GI/Abdominal exam: PRESENT: normal bowel sounds, soft Rectal exam: PRESENT: deferred Neurological exam: PRESENT: alert, awake, oriented to person, oriented to place , oriented to time, oriented to situation, CN II-XII grossly intact Psychiatric exam: PRESENT: appropriate affect, normal mood Skin exam: PRESENT: dry, intact, warm Results Laboratory Results: 02/05/17 18:36 02/10/17 04:37 02/10/17 04:37 Sodium 142.0 Potassium 4.4 Chloride 111 H Carbon Dioxide 21 L Anion Gap 10 BUN 57 H Creatinine 2.13 H Est GFR ( Amer) 36 L Est GFR (Non-Af Amer) 30 L Glucose 132 H Calcium 8.3 L 02/05/17 02/05/17 02/06/17 18:36 19:20 03:10 Creatine Kinase 108 83 CK-MB (CK-2) 0.75 Troponin I < 0.012 02/06/17 02/06/17 02/06/17 03:10 10:51 10:51 Creatine Kinase 90 CK-MB (CK-2) 0.59 0.66 Troponin I < 0.012 < 0.012 Impressions: Chest X-Ray 02/05/17 17:28 IMPRESSION: NO ACUTE RADIOGRAPHIC FINDING IN THE CHEST. NO SIGNIFICANT CHANGE FROM PRIOR STUDY. Head CT 02/07/17 23:23 IMPRESSION: No acute findings. EVIDENCE OF ACUTE STROKE: NO. Head MRI 02/08/17 00:00 IMPRESSION: NO ACUTE ISCHEMIA, HEMORRHAGE, OR MASS LESION. NO SIGNIFICANT CHANGE FROM PRIOR STUDY. EVIDENCE OF ACUTE STROKE: NO.
[2017-02-10 13:07] VITALS: BP 150/63
== END 2017-02-10 14:10 | disposition home health service (06) | DRG 78 ==
LOC: 3W 15:45 → OBSVTOIN 02-06 13:08 → ICU 02-06 14:57 → 3S 02-09 17:22
PROVIDERS: ADMIT Internal Medicine; ATTEND Internal Medicine
PROC: 3E0234Z Introduction of Serum, Toxoid and Vaccine into Muscle, Percutaneous Approach (ICD-10-PCS; principal; 2017-02-10)
DX: I67.4 Hypertensive encephalopathy (principal); N17.9 Acute kidney failure, unspecified; I16.1 Hypertensive emergency; I12.9 Hypertensive chronic kidney disease with stage 1 through stage 4 chronic kidney disease, or unspecified chronic kidney disease; N18.3 Chronic kidney disease, stage 3 (moderate); E11.22 Type 2 diabetes mellitus with diabetic chronic kidney disease; J84.10 Pulmonary fibrosis, unspecified; G40.909 Epilepsy, unspecified, not intractable, without status epilepticus; E78.5 Hyperlipidemia, unspecified; J44.9 Chronic obstructive pulmonary disease, unspecified; Z23 Encounter for immunization; Z79.82 Long term (current) use of aspirin; Z79.899 Other long term (current) drug therapy; Z85.46 Personal history of malignant neoplasm of prostate; Z87.891 Personal history of nicotine dependence
CPT/HCPCS: 36415; 70450; 70551; 71010; 80048; 80076; 81001; 82550; 82553; 82962; 84484; 85025; 87040; 87086; 90686; 93005; 93010; G0378; J3490

== ENCOUNTER → 2017-03-22 | Outpatient (CLI) | payer MEDICARE, OTHER ==
--- NOTE | 2017-03-22 15:06 | RADIOLOGY REPORT (SQ) ---
EXAM DESCRIPTION: CT CHEST WITHOUT COMPLETED DATE/TIME: 03/22/2017 1:14 pm REASON FOR STUDY: SHORTNES SOF BREATH R06.02 SHORTNESS OF BREATH COMPARISON: CT chest 06/27/2013 TECHNIQUE: CT scan performed of the chest without intravenous contrast. Images reviewed with lung, soft tissue and bone windows. Reconstructed coronal and sagittal MPR images reviewed. All images st ored on PACS. All CT scanners at this facility use dose modulation, iterative reconstruction, and/or weight based d osing when appropriate to reduce radiation dose to as low as reasonably achievable (ALARA). [facility]: Dose Right [facility]: CareDose [facility]: Dose Right [facility]: Teradose 4D [facility]: Smart [employer] RADIATION DOSE: CT Rad equipment meets quality standard of care and radiation dose reduction techniq ues were employed. CTDIvol: 8.0 mGy. DLP: 277 mGy-cm. mGy. LIMITATIONS: No technical limitations. FINDINGS: LUNGS AND PLEURA: End-stage appearance of pulmonary fibrosis with honeycomb pattern around the periphery of both lungs, and bronchiectasis in the bilateral lower lobes. No dense consolidation worrisome for pneumonia. Minimal ground-glass opacity in the bilateral upper lobes and superior segments lower lobes which could indicate minimal edema. Pneumonia is also possib le. No pleural effusions. No pneumothorax. HILAR AND MEDIASTINAL STRUCTURES: Less than 1 cm short axis pretracheal, right paratracheal, precarin al, and aortopulmonary window lymph nodes unchanged from 06/27/2013. HEART AND VASCULAR STRUCTURES: No aneurysm. No pericardial effusion. Mild coronary artery calcifica tion UPPER ABDOMEN: No significant findings. Limited exam. THYROID AND OTHER SOFT TISSUES: No masses. No adenopathy. BONES: No significant finding. HARDWARE: None in the chest. OTHER: No other significant findings. IMPRESSION: Pulmonary fibrosis and bronchiectasis similar compared to 2013 Minimal ground-glass opacity in the upper lobes and superior segment lower lobes, could indicate mild superimposed pulmonary edema. TECHNICAL DOCUMENTATION: JOB ID: [id number] Quality ID # [id number]: Final reports with documentation of one or more dose reduction techniques (e.g., Au tomated exposure control, adjustment of the mA and/or kV according to patient size, use of iterative reconstruction technique) 2010 [employer]- All Rights Reserved
== END ==
LOC: RAD 12:59
PROVIDERS: ATTEND Internal Medicine
DX: J84.10 Pulmonary fibrosis, unspecified (principal); J47.9 Bronchiectasis, uncomplicated; R06.02 Shortness of breath
CPT/HCPCS: 71250

== ENCOUNTER 2017-04-19 14:14 | Inpatient (IN) | payer MEDICARE, OTHER ==
[2017-04-19] MEDS ORDERED: ADENOSINE INJ/PF 6 MG/2 ML SDV IV ONE ×4 (14:38→15:08)
--- NOTE | 2017-04-19 14:38 | ER Document Report ---
ED Medical Screen (RME) - General Chief Complaint: Shortness Of Breath Stated Complaint: WEAKNESS,SHORTNESS OF BREATH Time Seen by Provider: 04/19/17 14:32 Mode of Arrival: Wheelchair Information source: Patient Notes: 86-year-old male presents with complaints of shortness breath of 3 day duration. Patient noted to be in SVT in the 180s, denies a previous history I have greeted and performed a rapid initial assessment of this patient. A comprehensive ED assessment and evaluation of the patient, analysis of test results and completion of the medical decision making process will be conducted by additional ED providers. PHYSICAL EXAMINATION: GENERAL: Well-appearing, well-nourished and in mild respiratory distress HEAD: Atraumatic, normocephalic. EYES: Pupils equal round extraocular movements intact, conjunctiva are normal. ENT: Nares patent NECK: Normal range of motion LUNGS: No respiratory distress Musculoskeletal: Normal range of motion NEUROLOGICAL: Normal speech, normal gait. PSYCH: Normal mood, normal affect. SKIN: Warm, Dry, normal turgor, no rashes or lesions noted. TRAVEL OUTSIDE OF THE [place] IN LAST 30 DAYS: No - Related Data Allergies/Adverse Reactions: No Known Allergies Allergy (Verified 04/19/17 14:16) Past Medical History - Past Medical History Cardiac Medical History: Reports: Hx Hypercholesterolemia, Hx Hypertension Pulmonary Medical History: Reports: Hx COPD Neurological Medical History: Denies: Hx Cerebrovascular Accident Endocrine Medical History: Reports: Hx Diabetes Mellitus Type 2 - non insulin dependent Malignancy Medical History: Reports Hx Prostate Cancer - pt states has had radiation for same GI Medical History: Denies: Hx Hepatitis, Hx Hiatal Hernia, Hx Ulcer Musculoskeltal Medical History: Reports Hx Arthritis, Reports Hx Gout - * Patient states he had an episode of gout 2011 Infectious Medical History: Denies: Hx Hepatitis Past Surgical History: Denies: Hx Open Heart Surgery, Hx Pacemaker - Immunizations Hx Diphtheria, Pertussis, Tetanus Vaccination: Yes History of Influenza Vaccine for 12/2016 - 05/2017 Season: No
[2017-04-19] MEDS ORDERED: NORMAL SALINE 1000 ML 1,000 ML IV ONE (14:39)
--- NOTE | 2017-04-19 14:40 | ER Document Report ---
ED General - General Chief Complaint: Shortness Of Breath Stated Complaint: WEAKNESS,SHORTNESS OF BREATH Time Seen by Provider: 04/19/17 14:32 Mode of Arrival: Wheelchair Notes: 86-year-old male patient with several day history of shortness of breath. Presented to the ER for evaluation. On evaluation noted to have a heart rate in the 170s. Stat EKG was obtained. EKG showed SVT. Patient brought straight back.. Patient states that the only complaint is that he feels weak and short of breath. Denies any chest pain. No leg pain. No other major medical problems at this time. Normally healthy. TRAVEL OUTSIDE OF THE [place] IN LAST 30 DAYS: No - HPI Onset: Yesterday Onset/Duration: Persistent Quality of pain: No pain Severity: Moderate Associated symptoms: Shortness of breath Exacerbated by: Denies Relieved by: Denies Similar symptoms previously: No - Related Data Allergies/Adverse Reactions: No Known Allergies Allergy (Verified 04/19/17 14:16) Past Medical History - General Information source: Patient - Social History Smoking Status: Never Smoker Cigarette use (# per day): No Frequency of alcohol use: None Drug Abuse: None Lives with: Family Family History: Reviewed & Not Pertinent, Other - Past Medical History Cardiac Medical History: Reports: Hx Hypercholesterolemia, Hx Hypertension Pulmonary Medical History: Reports: Hx COPD Neurological Medical History: Denies: Hx Cerebrovascular Accident Endocrine Medical History: Reports: Hx Diabetes Mellitus Type 2 - non insulin dependent Malignancy Medical History: Reports Hx Prostate Cancer - pt states has had radiation for same GI Medical History: Denies: Hx Hepatitis, Hx Hiatal Hernia, Hx Ulcer Musculoskeltal Medical History: Reports Hx Arthritis, Reports Hx Gout - * Patient states he had an episode of gout 2011 Infectious Medical History: Denies: Hx Hepatitis Past Surgical History: Denies: Hx Open Heart Surgery, Hx Pacemaker - Immunizations Hx Diphtheria, Pertussis, Tetanus Vaccination: Yes Hx Pneumococcal Vaccination: 12/16/12 Review of Systems - Review of Systems Constitutional: No symptoms reported EENT: No symptoms reported Cardiovascular: No symptoms reported Respiratory: Short of breath Gastrointestinal: No symptoms reported Genitourinary: No symptoms reported Male Genitourinary: No symptoms reported Musculoskeletal: No symptoms reported Skin: No symptoms reported Hematologic/Lymphatic: No symptoms reported Neurological/Psychological: No symptoms reported Physical Exam - Vital signs Vitals: Pulse Resp BP Pulse Ox 186 H 24 H 101/72 95 04/19/17 14:31 04/19/17 14:31 04/19/17 14:31 04/19/17 14:31 Interpretation: Tachycardic, Tachypneic - General General appearance: Appears well, Alert In distress: Moderate - HEENT Head: Normocephalic, Atraumatic Eyes: Normal Pupils: PERRL - Respiratory Respiratory status: No respiratory distress Chest status: Nontender Breath sounds: Normal Chest palpation: Normal - Cardiovascular Rhythm: Tachycardia Heart sounds: Normal auscultation Murmur: No - Abdominal Inspection: Normal Distension: No distension Bowel sounds: Normal Tenderness: Nontender Organomegaly: No organomegaly - Back Back: Normal, Nontender - Extremities General upper extremity: Normal inspection, Nontender, Normal color, Normal ROM , Normal temperature General lower extremity: Normal inspection, Nontender, Normal color, Normal ROM , Normal temperature, Normal weight bearing. No: Jessica's sign - Neurological Neuro grossly intact: Yes Cognition: Normal Orientation: AAOx4 [place] Coma Scale Eye Opening: Spontaneous [place] Coma Scale Verbal: Oriented [place] Coma Scale Motor: Obeys Commands [place] Coma Scale Total: 15 Speech: Normal Motor strength normal: LUE, RUE, LLE, RLE Sensory: Normal - Psychological Associated symptoms: Normal affect, Normal mood - Skin Skin Temperature: Warm Skin Moisture: Dry Skin Color: Normal Course - Re-evaluation Re-evalutation: 04/19/17 15:20 Anxious appearing male in moderate distress due to rapid heart rate. 6 mg of adenosine given. Patient converted to normal sinus rhythm with a heart rate of 107. Borderline left axis deviation. After approximately 10 minutes patient inverted back to SVT. A second bolus of 6 mg of adenosine was given. Patient converted again to heart rate of 104. A diltiazem drip was started at that time at 5 mg. Patient resting comfortably and breathing better at this time. Currently heart rate is 95 and blood pressure is 115/78 with oxygen saturation of 100% on 2 L of nasal cannula. 04/19/17 15:56 Patient now with heart rate of 90. O2 sats 98% on 2 L. Resting comfortably. On a diltiazem drip at 5 mg and will consult with Dr. Wang for admission. - Vital Signs Vital signs: Temp Pulse Resp BP Pulse Ox 186 H 22 H 166/85 H 100 04/19/17 14:31 04/19/17 15:46 04/19/17 15:46 04/19/17 15:46 - Laboratory Result Diagrams: 04/19/17 14:41 04/19/17 14:41 Laboratory results interpreted by me: 04/19/17 04/19/17 14:41 14:41 RBC 3.66 L Hgb 10.8 L Hct 32.2 L Monocytes % 13.3 H Chloride 110 H BUN 39 H Creatinine 2.22 H Est GFR ( Amer) 34 L Est GFR (Non-Af Amer) 28 L Glucose 185 H ALT 20 L - EKG Interpretation by Me EKG shows normal: QRS Complexes, ST-T Waves Rate: Tachycardia Rhythm: SVT [place]/QRS: Left axis deviation Critical Care Note - Critical Care Note Total time excluding time spent on procedures (mins): 45 Comments: Extreme tachycardia, cardioversion, Discharge - Discharge Clinical Impression: Supraventricular tachycardia Disposition: ADMITTED INPATIENT Admitting Provider: Janie Unit Admitted: IMCU Referrals: BEN WANG MD [Primary Care Provider] - Follow up as needed
[2017-04-19] MEDS ORDERED: NORMAL SALINE 500 ML IV ONE (14:42)
[2017-04-19 14:49] LABS: ABSOLUTE BASOPHILS # (AUTO) 0.1 10^3/uL (0.0-0.2); ABSOLUTE EOSINOPHILS # (AUTO) 0.3 10^3/uL (0.0-0.6); ABSOLUTE LYMPHOCYTES (AUTO) 2.3 10^3/uL (0.5-4.7); ABSOLUTE MONOCYTES (AUTO) 1.2 10^3/uL (0.1-1.4); ABSOLUTE NEUT (AUTO) 5.2 10^3/uL (1.7-8.2); BASOPHILS % (AUTO) 1.1 % (0-2); EOSINOPHILS % (AUTO) 3.8 % (0-6); HEMATOCRIT 32.2 % (37.9-51.0); HEMOGLOBIN 10.8 g/dL (13.5-17.0); MEAN CORPUSCULAR HEMOGLOBIN 29.5 pg (27.0-33.4); MEAN CORPUSCULAR HGB CONC 33.4 g/dL (32.0-36.0); MEAN CORPUSCULAR VOLUME 88 fl (80-97); MONOCYTES % (AUTO) 13.3 % (3-13); PLATELET COUNT 331 10^3/uL (150-450); RED BLOOD COUNT 3.66 10^6/uL (4.35-5.55); RED CELL DISTRIBUTION WIDTH 13.9 % (11.5-14.0); SEGMENTED NEUTROPHILS % (AUTO) 56.8 % (42-78); TOTAL CELLS COUNTED % (AUTO) 100 %; WHITE BLOOD COUNT 9.2 10^3/uL (4.0-10.5)
[2017-04-19] MEDS ORDERED: DILTIAZEM HCL/D5W 125 MG/125 ML RTUINJ IV PRN (14:58)
[2017-04-19] MEDS ORDERED: DILTIAZEM HCL/D5W 125 MG/125 ML RTUINJ IV ONE (15:01)
[2017-04-19 15:09] LABS: ALANINE AMINOTRANSFERASE 20 U/L (21-72); ALBUMIN 3.8 g/dL (3.5-5.0); ALKALINE PHOSPHATASE 96 U/L (38-126); ANION GAP 9 (5-19); ASPARTATE AMINO TRANSFERASE 30 U/L (17-59); BILIRUBIN,DIRECT 0.3 mg/dL (0.0-0.4); BILIRUBIN,TOTAL 0.5 mg/dL (0.2-1.3); BLOOD UREA NITROGEN 39 mg/dL (7-20); CALCIUM 9.6 mg/dL (8.4-10.2); CARBON DIOXIDE 22 mmol/L (22-30); CHLORIDE 110 mmol/L (98-107); CREATINE KINASE 87 U/L (55-170); GLUCOSE 185 mg/dL (75-110); POTASSIUM 4.7 mmol/L (3.6-5.0); SODIUM 140.5 mmol/L (137-145); TOTAL PROTEIN 7.9 g/dL (6.3-8.2)
[2017-04-19 15:21] LABS: CREATINE KINASE MB 0.71 ng/mL (<4.55); NT PRO BNP 447 pg/mL (<450)
[2017-04-19 15:24] LABS: TROPONIN I < 0.012 ng/mL
--- NOTE | 2017-04-19 15:35 | RADIOLOGY REPORT (SQ) ---
EXAM DESCRIPTION: CHEST SINGLE VIEW COMPLETED DATE/TIME: 04/19/2017 3:27 pm REASON FOR STUDY: sob COMPARISON: Chest x-ray dated 02/05/2017 EXAM PARAMETERS: NUMBER OF VIEWS: One view. TECHNIQUE: Single frontal radiographic view of the chest acquired. RADIATION DOSE: NA LIMITATIONS: None. FINDINGS: LUNGS AND PLEURA: No opacities, masses or pneumothorax. No pleural effusion. Chronic appe aring changes are again identified. MEDIASTINUM AND HILAR STRUCTURES: No masses. Contour normal. HEART AND VASCULAR STRUCTURES: The configuration of the heart and mediastinal structures is unchanged BONES: No acute findings. HARDWARE: None in the chest. OTHER: No other significant finding. IMPRESSION: No significant interval change. No acute findings. Other findings as noted above TECHNICAL DOCUMENTATION: JOB ID: [id number] [email or web address]- All Rights Reserved
[2017-04-19] MEDS ORDERED: DILTIAZEM HCL INJ 25 MG/5 ML VIAL IV ONE (15:43)
--- NOTE | 2017-04-19 17:05 | EKG REPORT ---
SEVERITY:- ABNORMAL ECG - SUPRAVENTRICULAR TACHYCARDIA LEFT AXIS DEVIATION ST DEPRESSION, PROBABLY RATE RELATED : Confirmed by: Nelly Massey 19-Apr-2017 17:05:11
[2017-04-19 19:29] LABS: APPEARANCE,URINE CLEAR; BILIRUBIN,URINE NEGATIVE (NEGATIVE); COLOR,URINE YELLOW; GLUCOSE, URINE 50 mg/dL (NEGATIVE); KETONES,URINE NEGATIVE (NEGATIVE); LEUKOCYTE ESTERASE,URINE NEGATIVE (NEGATIVE); NITRITE,URINE NEGATIVE (NEGATIVE); PROTEIN,URINE 100 mg/dL (NEGATIVE); URINE SPECIFIC GRAVITY 1.011; UROBILINOGEN,URINE NEGATIVE mg/dL (<2.0)
[2017-04-20] MEDS ORDERED: DEXTROSE 50%-WATER SYRINGE 25 GM/50 ML DOSE IV PRN (02:22)
[2017-04-20] MEDS ORDERED: INSULIN LISPRO 100 UNIT/ML 3 ML VIAL SUBCUT PRN (02:22)
[2017-04-20] MEDS ORDERED: DEXTROSE 40% GEL 15 GM TUBE PO PRN (02:22)
[2017-04-20] MEDS ORDERED: GLUCAGON,HUMAN RECOMB 1 MG INJ IM PRN (02:22)
[2017-04-20] MEDS ORDERED: DEXTROSE 40% GEL 15 GM TUBE X 2 PO PRN (02:22)
[2017-04-20] MEDS ORDERED: DEXTROSE 50%-WATER SYRINGE 12.5 GM/25 ML DOSE IV PRN (02:22)
--- NOTE | 2017-04-20 09:47 | EKG REPORT ---
SEVERITY:- BORDERLINE ECG - SINUS TACHYCARDIA WITH IRREGULAR RATE 90-136 LEFT AXIS DEVIATION : Confirmed by: Nelly Massey 20-Apr-2017 09:46:34
--- NOTE | 2017-04-20 09:47 | EKG REPORT ---
SEVERITY:- ABNORMAL ECG - SUPRAVENTRICULAR TACHYCARDIA BORDERLINE LEFT AXIS DEVIATION ST DEPRESSION, PROBABLY RATE RELATED : Confirmed by: Nelly Massey 20-Apr-2017 09:46:45
--- NOTE | 2017-04-20 09:47 | EKG REPORT ---
SEVERITY:- OTHERWISE NORMAL ECG - SINUS TACHYCARDIA BORDERLINE LEFT AXIS DEVIATION : Confirmed by: Nelly Massey 20-Apr-2017 09:46:52
[2017-04-20] MEDS ORDERED: METOPROLOL SUCCINATE 50 MG TAB.SR.24H PO SCH (10:00)
[2017-04-20] MEDS ORDERED: ASPIRIN 81 MG TABLET, CHEWABLE PO SCH (10:00)
[2017-04-20] MEDS ORDERED: SITAGLIPTIN PHOSPHATE 25 MG TABLET PO SCH (10:00)
[2017-04-20] MEDS ORDERED: TOLTERODINE TARTRATE 1 MG TABLET PO SCH (10:00)
[2017-04-20] MEDS ORDERED: TAMSULOSIN HCL 0.4 MG CAP.SR.24H PO SCH (16:00)
[2017-04-20 18:21] VITALS: BP 168/80
--- NOTE | 2017-04-20 19:05 | PDOC H&P ---
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 Renal/ Medical History: Reports: Chronic Kidney Disease, Other - Nephrotic range proteinuria Musculoskeltal Medical History: Reports: Arthritis, Gout - *Patient states he had an episode of gout 2011 Hematology: Denies: Anemia, Sickle Cell Disease Past Surgical History Past Surgical History: Denies: Pacemaker Social History Lives with: Family Smoking Status: Former Smoker Last Time Smoked: 25yrs ago Frequency of Alcohol Use: None Hx Recreational Drug Use: No Drugs: None Hx Prescription Drug Abuse: No - Advance Directive Resuscitation Status: Full Code Family History Family History: Reviewed & Not Pertinent, Other Parental Family History Reviewed: Yes Children Family History Reviewed: Yes Sibling(s) Family History Reviewed.: Yes Medication/Allergy Home Medications: Aspirin [Aspirin 81 mg Chewable Tablet] 81 mg PO DAILY 04/19/17 Doxepin HCl [Sinequan 10 mg Capsule] 10 mg PO QHS 04/19/17 Metoprolol Succinate [Toprol XL 200 mg Tablet] 200 mg PO DAILY 04/19/17 Saxagliptin HCl [Onglyza] 2.5 mg PO DAILY 04/19/17 Solifenacin Succinate [Vesicare] 10 mg PO DAILY 04/19/17 Tamsulosin HCl [Flomax 0.4 mg Cap.sr] 0.4 mg PO ACSUPPER 04/19/17 Allergies/Adverse Reactions: No Known Allergies Allergy (Verified 04/19/17 14:16) Review of Systems Constitutional: ABSENT: chills, fever(s), headache(s), weight gain, weight loss Eyes: ABSENT: visual disturbances Ears: ABSENT: hearing changes Cardiovascular: PRESENT: dyspnea on exertion Respiratory: ABSENT: cough, hemoptysis Gastrointestinal: ABSENT: abdominal pain, constipation, diarrhea, hematemesis, hematochezia, nausea, vomiting Genitourinary: ABSENT: dysuria, hematuria Musculoskeletal: ABSENT: joint swelling Integumentary: ABSENT: rash, wounds Neurological: ABSENT: abnormal gait, abnormal speech, confusion, dizziness, focal weakness, syncope Psychiatric: ABSENT: anxiety, depression, homidical ideation, suicidal ideation Endocrine: ABSENT: cold intolerance, heat intolerance, menstrual abnormalities, polydipsia, polyuria Hematologic/Lymphatic: ABSENT: easy bleeding, easy bruising, lymphadenopathy Physical Exam Vital Signs: Temp Pulse Resp BP Pulse Ox 98.1 F 66 18 168/80 H 97 04/20/17 18:19 04/20/17 18:19 04/20/17 18:19 04/20/17 18:19 04/20/17 18:19 Intake & Output 04/19/17 04/20/17 04/21/17 06:59 06:59 06:59 Intake Total 103 350 Output Total 200 250 Balance -97 100 Weight 74.4 kg General appearance: PRESENT: no acute distress Head exam: PRESENT: atraumatic, normocephalic Eye exam: PRESENT: PERRLA. ABSENT: scleral icterus Ear exam: PRESENT: normal external ear exam Mouth exam: PRESENT: moist, tongue midline Neck exam: PRESENT: full ROM Respiratory exam: PRESENT: crackles Cardiovascular exam: PRESENT: RRR, +S1, +S2 Vascular exam: PRESENT: normal capillary refill GI/Abdominal exam: PRESENT: normal bowel sounds, soft Rectal exam: PRESENT: deferred Neurological exam: PRESENT: alert, awake, oriented to person, oriented to place , oriented to time, oriented to situation, CN II-XII grossly intact Psychiatric exam: PRESENT: appropriate affect, normal mood Skin exam: PRESENT: dry, intact, warm Results Laboratory Results: 04/19/17 18:50 Urine Color YELLOW Urine Appearance CLEAR Urine pH 7.0 Ur Specific [place] 1.011 Urine Protein 100 H Urine Glucose (UA) 50 H Urine Ketones NEGATIVE Urine Blood NEGATIVE Urine Nitrite NEGATIVE Ur Leukocyte Esterase NEGATIVE Urine WBC (Auto) 9 Urine RBC (Auto) 9 Impressions: Chest X-Ray 04/19/17 14:38 IMPRESSION: No significant interval change. No acute findings. Other findings as noted above Assessment & Plan - Diagnosis (1) Supraventricular tachycardia Is this a current diagnosis for this admission?: Yes Plan: Patient was admitted for observation
--- NOTE | 2017-04-20 19:07 | PDOC DISCHARGE SUMMARY ---
General - Admit/Disc Date/PCP Admission Date/Primary Care Provider: 04/19/17 17:34 BEN WANG MD Discharge Date: 04/20/17 - Discharge Diagnosis (1) Supraventricular tachycardia Is this a current diagnosis for this admission?: Yes (3) Chronic kidney disease, stage III (moderate) Is this a current diagnosis for this admission?: Yes - Additional Information Resuscitation Status: Full Code Discharge Diet: As Tolerated Discharge Activity: Activity As Tolerated, Balance Activity w/Rest Home Medications: Aspirin [Aspirin 81 mg Chewable Tablet] 81 mg PO DAILY 04/19/17 Doxepin HCl [Sinequan 10 mg Capsule] 10 mg PO QHS 04/19/17 Metoprolol Succinate [Toprol XL 200 mg Tablet] 200 mg PO DAILY 04/19/17 Saxagliptin HCl [Onglyza] 2.5 mg PO DAILY 04/19/17 Solifenacin Succinate [Vesicare] 10 mg PO DAILY 04/19/17 Tamsulosin HCl [Flomax 0.4 mg Cap.sr] 0.4 mg PO ACSUPPER 04/19/17 History of Present Illness History of Present Illness: MILO ROBB is a 86 year old male, he has multiple comorbid conditions including severe pulmonary fibrosis, 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 Hospital Course Hospital Course: Patient was admitted for observation there was no observed recurrence of SVT throughout hospital stay, he be discharged home today she will continue present medication Physical Exam Vital Signs: Temp Pulse Resp BP Pulse Ox 98.1 F 66 18 168/80 H 97 04/20/17 18:19 04/20/17 18:19 04/20/17 18:19 04/20/17 18:19 04/20/17 18:19 Intake & Output 04/19/17 04/20/17 04/21/17 06:59 06:59 06:59 Intake Total 103 350 Output Total 200 250 Balance -97 100 Weight 74.4 kg General appearance: PRESENT: no acute distress, well-developed, well-nourished Head exam: PRESENT: atraumatic, normocephalic Eye exam: PRESENT: conjunctiva pink, EOMI, PERRLA. ABSENT: scleral icterus Ear exam: PRESENT: normal external ear exam Mouth exam: PRESENT: moist, tongue midline Neck exam: PRESENT: full ROM. ABSENT: carotid bruit, JVD, lymphadenopathy, thyromegaly Respiratory exam: PRESENT: clear to auscultation josse Cardiovascular exam: PRESENT: RRR, +S1, +S2 Vascular exam: PRESENT: normal capillary refill GI/Abdominal exam: PRESENT: normal bowel sounds, soft Rectal exam: PRESENT: deferred Neurological exam: PRESENT: alert, awake, oriented to person, oriented to place , oriented to time, oriented to situation, CN II-XII grossly intact Psychiatric exam: PRESENT: appropriate affect, normal mood Skin exam: PRESENT: dry, intact, warm Results Laboratory Results: 04/19/17 18:50 Urine Color YELLOW Urine Appearance CLEAR Urine pH 7.0 Ur Specific [place] 1.011 Urine Protein 100 H Urine Glucose (UA) 50 H Urine Ketones NEGATIVE Urine Blood NEGATIVE Urine Nitrite NEGATIVE Ur Leukocyte Esterase NEGATIVE Urine WBC (Auto) 9 Urine RBC (Auto) 9 Impressions: Chest X-Ray 04/19/17 14:38 IMPRESSION: No significant interval change. No acute findings. Other findings as noted above
[2017-04-20] MEDS ORDERED: DOXEPIN HCL 10 MG CAPSULE PO SCH (22:00)
== END 2017-04-20 19:00 | disposition home or self-care (01) | DRG 310 ==
LOC: ER 14:14 → EH 17:34 → 3W 04-20 01:45
PROVIDERS: ADMIT Internal Medicine; ATTEND Internal Medicine
DX: I47.1 Supraventricular tachycardia (principal); N18.3 Chronic kidney disease, stage 3 (moderate); I12.9 Hypertensive chronic kidney disease with stage 1 through stage 4 chronic kidney disease, or unspecified chronic kidney disease; E11.22 Type 2 diabetes mellitus with diabetic chronic kidney disease; E11.69 Type 2 diabetes mellitus with other specified complication; E78.5 Hyperlipidemia, unspecified; J44.9 Chronic obstructive pulmonary disease, unspecified; J84.10 Pulmonary fibrosis, unspecified; M06.9 Rheumatoid arthritis, unspecified; Z87.891 Personal history of nicotine dependence; Z79.82 Long term (current) use of aspirin; Z79.899 Other long term (current) drug therapy
CPT/HCPCS: 36415; 71045; 80053; 81001; 82550; 82553; 82962; 83880; 84484; 85025; 93005; 93010; 96361; 96372; 96374; 99291; J0153; J3490; J7040

== ENCOUNTER 2017-04-28 12:29 | Emergency (ER) | payer MEDICARE, OTHER ==
--- NOTE | 2017-04-28 13:38 | ER Document Report ---
ED General - General Chief Complaint: General Weakness Stated Complaint: WEAKNESS Time Seen by Provider: 04/28/17 13:29 TRAVEL OUTSIDE OF THE [place] IN LAST 30 DAYS: No - HPI Notes: Patient is an 86-year-old male with a history of hypertension, hypercholesteremia, type 2 diabetes, CKD-III, SVT who presents to the ED with and son for feeling weak today. Patient states that he had some dizziness this morning and had decreased p.o. intake today. Patient states he is otherwise urinating normally and having normal bowel movements. Patient has not noticed any pain anywhere. He has not had any falls. Patient was admitted to the hospital last weekend for SVT which was converted to sinus rhythm by adenosine and he had no recurrence throughout his observational stay in the ED last weekend. Patient had a similar symptom of weakness at that time. Patient states that he is ambulatory without any chest pain, but does get SOB when he walks too far. Pt/spouse state that has been ongoing x2mos. patient states he has otherwise been taking his medicines without any other side effects to note. Patient has had an occasional dry nonproductive cough. He denies any drug allergies. Patient states that he no longer feels dizzy since this morning. Patient denies any significant cardiac history otherwise. He is not on any blood thinners. Son and state that he is baseline with his mentation/ speech/behavior. Denies any previous CVA, TIA, cancer, severe anemia, respiratory compromise, PE, DVT, [place]. Denies any headache, fever, head injury, neck pain, changes in vision/speech/mentation/hearing, URI, sore throat, chest pain, palpitations, syncope, wheeze, dyspnea, abdominal pain, nausea/vomiting/ diarrhea, urinary retention, dysuria, hematuria, loss of control of bowel or bladder, numbness/tingling, saddle anesthesia, muscle paralysis focal weakness, or rash. - Related Data Allergies/Adverse Reactions: No Known Allergies Allergy (Verified 04/28/17 12:30) Past Medical History - Social History Smoking Status: Never Smoker Chew tobacco use (# tins/day): No Frequency of alcohol use: None Drug Abuse: None Family History: Reviewed & Not Pertinent, Other Patient has suicidal ideation: No Patient has homicidal ideation: No - Past Medical History Cardiac Medical History: Reports: Hx Hypercholesterolemia, Hx Hypertension Pulmonary Medical History: Reports: Hx COPD Neurological Medical History: Denies: Hx Cerebrovascular Accident Endocrine Medical History: Reports: Hx Diabetes Mellitus Type 2 - non insulin dependent Renal/ Medical History: Denies: Hx Peritoneal Dialysis Malignancy Medical History: Reports Hx Prostate Cancer - pt states has had radiation for same GI Medical History: Denies: Hx Hepatitis, Hx Hiatal Hernia, Hx Ulcer Musculoskeltal Medical History: Reports Hx Arthritis, Reports Hx Gout - * Patient states he had an episode of gout 2011 Infectious Medical History: Denies: Hx Hepatitis Past Surgical History: Denies: Hx Open Heart Surgery, Hx Pacemaker - Immunizations Hx Diphtheria, Pertussis, Tetanus Vaccination: Yes Hx Pneumococcal Vaccination: 12/16/12 Review of Systems - Review of Systems Notes: REVIEW OF SYSTEMS: CONSTITUTIONAL : see hpi. Denies fever, chills, or sweats. Denies recent illness. EENT: Denies eye, ear, throat, or mouth pain or symptoms. Denies nasal or sinus congestion or discharge. Denies throat, tongue, or mouth swelling or difficulty swallowing. CARDIOVASCULAR: Denies chest pain. Denies palpitations or racing or irregular heart beat. Denies ankle edema. RESPIRATORY: see hpi. GASTROINTESTINAL: Denies abdominal pain or distention. Denies nausea, vomiting , or diarrhea. Denies blood in vomitus, stools, or per rectum. Denies black, tarry stools. Denies constipation. GENITOURINARY: Denies difficulty urinating, painful urination, burning, frequency, blood in urine, or discharge. MUSCULOSKELETAL: Denies back or neck pain or stiffness. Denies joint pain or swelling. SKIN: Denies rash, lesions or sores. HEMATOLOGIC : Denies easy bruising or bleeding. LYMPHATIC: Denies swollen, enlarged glands. NEUROLOGICAL: Denies confusion or altered mental status. Denies passing out or loss of consciousness. Denies headache. Denies weakness or paralysis or loss of use of either side. Denies problems with gait or speech. Denies sensory loss, numbness, or tingling. Denies seizures. PSYCHIATRIC: Denies anxiety or stress. Denies depression, suicidal ideation, or homicidal ideation. ALL OTHER SYSTEMS REVIEWED AND NEGATIVE. Dictation was performed using [employer] voice recognition software Physical Exam - Vital signs Vitals: Temp Pulse Resp BP Pulse Ox 97.8 F 87 20 147/80 H 96 04/28/17 12:36 04/28/17 12:36 04/28/17 12:36 04/28/17 12:36 04/28/17 12:36 - Notes Notes: PHYSICAL EXAMINATION: GENERAL: Well-appearing, well-nourished and in no acute distress. A&Ox4. Answers questions appropriately with clear speech. HEAD: Atraumatic, normocephalic. Non-tender. EYES: Pupils equal round and reactive to light, extraocular movements intact, sclera anicteric, conjunctiva are normal. No nystagmus. ENT: EAC clear b/l. TM's intact b/l without erythema, fluid, or perforation. Nares patent and without discharge. oropharynx clear without exudates. No tonsilar hypertrophy or erythema. Moist mucous membranes. No sinus tenderness. NECK: Normal range of motion, supple without lymphadenopathy. No rigidity. No midline tenderness. Spurling negative. Chest: No flail chest. equal rise/fall. Non-tender LUNGS: Breath sounds clear to auscultation bilaterally and equal. No wheezes rales or rhonchi. HEART: Regular rate and rhythm without murmurs, rubs, gallops. ABDOMEN: Soft, nontender, nondistended abdomen. No guarding, no rebound. No masses appreciated. Normal bowel sounds present. No CVA tenderness bilaterally. Musculoskeletal: Ext b/l: FROM to passive/active. Strength 5+/5. No focal deficits noted. No bony tenderness of extremities. Back: FROM to passive/active. Strength 5+/5. No vertebral point tenderness, stepoffs, or deformities. No other bony tenderness or ecchymosis. Extremities: No cyanosis, clubbing, or edema b/l. Peripheral pulses 2+. Capillary refill less than 2 seconds. NEUROLOGICAL: NIH 0. GCS 15. MMSE intact. Cranial nerves grossly intact. Normal speech, ataxic gait. Normal sensory, motor exams. Reflexes 2+ b/l. JAYA' s negative. Pronator drift negative. Heel/holder, finger/nose wnl. PSYCH: Normal mood, normal affect. SKIN: Warm, Dry, normal turgor, no rashes or lesions noted. Course - Re-evaluation Re-evalutation: 04/28/17 17:40 Patient is an afebrile, well-hydrated, 86-year-old male who presents to the ED with suspected pneumonia and UTI. Vitals are stable. PE is otherwise unremarkable. CBC is relatively unremarkable, CMP showed stable lab findings compared to baseline, and BNP was actually lower than last check and is in the 304. See chest x-ray result. Chest x-ray does not show an enlarged heart. Patient did not have any obvious pitting edema. I did review this case with Dr. Wade who believes that this may be more of an infectious etiology and that we should cover for probable pneumonia with a follow-up with his PCM on Sunday. Cardiac enzyme 2/EKG 2 were unremarkable for any acute pathology. Due to patient's chronic kidney disease, I will cover him on doxycycline to take twice a day for 10 days which will also cover the urinary bacteria. Urine culture is pending. Low suspicion for any acute glaucoma, temporal arteritis, meningitis, intracranial hemorrhage, ischemic stroke, ACS, PE, pneumothorax, pericarditis, dissection, respiratory compromise, severe dehydration, sepsis, meningitis, or other systemic emergent condition at this time. Patient is aware that his condition can change from initial presentation and he needs to monitor symptoms closely and seek medical attention for any acute changes. Recommend conservative measures for symptoms. Recheck with your PCM on Sunday. Return to the ED with any worsening/concerning symptoms otherwise as reviewed in discharge. Patient is in agreement. - Vital Signs Vital signs: Temp Pulse Resp BP Pulse Ox 97.8 F 87 22 H 182/96 H 94 04/28/17 12:36 04/28/17 12:36 04/28/17 16:37 04/28/17 16:37 04/28/17 16:37 - Laboratory Result Diagrams: 04/28/17 13:04 04/28/17 13:04 Laboratory results interpreted by me: 04/28/17 04/28/17 04/28/17 13:04 13:04 14:11 RBC 3.86 L Hgb 11.2 L Hct 34.5 L RDW 14.1 H Potassium 5.1 H Chloride 109 H BUN 35 H Creatinine 2.16 H Est GFR ( Amer) 35 L Est GFR (Non-Af Amer) 29 L Glucose 144 H ALT 15 L Urine Protein >=500 H Urine Glucose (UA) 50 H Ur Leukocyte Esterase SMALL H Urine Ascorbic Acid 40 H Discharge - Discharge Clinical Impression: Pneumonia Qualifiers: Pneumonia type: due to unspecified organism Laterality: bilateral Lung location : lower lobe of lung Qualified Code(s): J18.9 - Pneumonia, unspecified organism UTI (urinary tract infection) Qualifiers: Urinary tract infection type: site unspecified Hematuria presence: without hematuria Qualified Code(s): N39.0 - Urinary tract infection, site not specified Condition: Stable Disposition: HOME, SELF-CARE Instructions: Doxycycline ([facility]), Pneumonia ([facility]), Urinary Tract Infection ([facility]) Additional Instructions: Maintain adequate fluid intake Take meds as directed tylenol as needed over the counter cold medication as needed for symptoms Humidified air may help F/u: with your PCM on Sunday for a recheck Return to the ED with any fever, worsening pain, chest pain, palpitations, syncope, worsening RIOS, neck pain/stiffness, shortness of breath, wheezing, drooling, trouble swallowing/breathing, abdominal pain, n/v/d, rash, or worsening/concerning symptoms otherwise. Prescriptions: Doxycycline Hyclate 100 mg PO BID #20 capsule Forms: Elevated Blood Pressure Referrals: BEN WANG MD [ACTIVE STAFF] - 04/30/17
[2017-04-28 13:40] LABS: ABSOLUTE BASOPHILS # (AUTO) 0.1 10^3/uL (0.0-0.2); ABSOLUTE EOSINOPHILS # (AUTO) 0.3 10^3/uL (0.0-0.6); ABSOLUTE LYMPHOCYTES (AUTO) 1.8 10^3/uL (0.5-4.7); ABSOLUTE MONOCYTES (AUTO) 0.8 10^3/uL (0.1-1.4); ABSOLUTE NEUT (AUTO) 4.7 10^3/uL (1.7-8.2); BASOPHILS % (AUTO) 1.3 % (0-2); EOSINOPHILS % (AUTO) 3.6 % (0-6); HEMATOCRIT 34.5 % (37.9-51.0); HEMOGLOBIN 11.2 g/dL (13.5-17.0); LYMPHOCYTES % (AUTO) 23.5 % (13-45); MEAN CORPUSCULAR HGB CONC 32.4 g/dL (32.0-36.0); MEAN CORPUSCULAR VOLUME 90 fl (80-97); MONOCYTES % (AUTO) 9.8 % (3-13); PLATELET COUNT 325 10^3/uL (150-450); RED BLOOD COUNT 3.86 10^6/uL (4.35-5.55); RED CELL DISTRIBUTION WIDTH 14.1 % (11.5-14.0); SEGMENTED NEUTROPHILS % (AUTO) 61.8 % (42-78); TOTAL CELLS COUNTED % (AUTO) 100 %; WHITE BLOOD COUNT 7.6 10^3/uL (4.0-10.5)
[2017-04-28 14:01] LABS: ALANINE AMINOTRANSFERASE 15 U/L (21-72); ALBUMIN 3.8 g/dL (3.5-5.0); ALKALINE PHOSPHATASE 80 U/L (38-126); ANION GAP 8 (5-19); ASPARTATE AMINO TRANSFERASE 29 U/L (17-59); BILIRUBIN,DIRECT 0.3 mg/dL (0.0-0.4); BILIRUBIN,TOTAL 0.6 mg/dL (0.2-1.3); BLOOD UREA NITROGEN 35 mg/dL (7-20); CALCIUM 9.4 mg/dL (8.4-10.2); CARBON DIOXIDE 24 mmol/L (22-30); CHLORIDE 109 mmol/L (98-107); CREATINE KINASE 84 U/L (55-170); GLUCOSE 144 mg/dL (75-110); MAGNESIUM 2.2 mg/dL (1.6-2.3); POTASSIUM 5.1 mmol/L (3.6-5.0); SODIUM 141.2 mmol/L (137-145); TOTAL PROTEIN 8.1 g/dL (6.3-8.2)
--- NOTE | 2017-04-28 14:02 | RADIOLOGY REPORT (SQ) ---
EXAM DESCRIPTION: CHEST PA/LAT COMPLETED DATE/TIME: 04/28/2017 1:44 pm REASON FOR STUDY: weakness COMPARISON: Chest x-ray 04/19/2017, 02/05/2017. CT chest 03/22/2017. EXAM PARAMETERS: NUMBER OF VIEWS: two views TECHNIQUE: Digital Frontal and Lateral radiographic views of the chest acquired. RADIATION DOSE: NA LIMITATIONS: none FINDINGS: LUNGS AND PLEURA: There are patchy bilateral ground-glass opacities. No sizable pleural e ffusion or pneumothorax. MEDIASTINUM AND HILAR STRUCTURES: No masses or contour abnormalities. HEART AND VASCULAR STRUCTURES: Heart normal size. No evidence for failure. BONES: No acute findings. HARDWARE: None in the chest. IMPRESSION: Patchy bilateral ground-glass opacities, may represent pneumonia and/or pulmonary edema. TECHNICAL DOCUMENTATION: JOB ID: [id number] 2010 [employer]- All Rights Reserved
[2017-04-28 14:13] LABS: CREATINE KINASE MB 0.42 ng/mL (<4.55)
[2017-04-28 14:14] LABS: TROPONIN I < 0.012 ng/mL
[2017-04-28 14:38] LABS: APPEARANCE,URINE SLIGHTLY-CLOUDY; BILIRUBIN,URINE NEGATIVE (NEGATIVE); COLOR,URINE YELLOW; GLUCOSE, URINE 50 mg/dL (NEGATIVE); KETONES,URINE NEGATIVE (NEGATIVE); LEUKOCYTE ESTERASE,URINE SMALL (NEGATIVE); NITRITE,URINE NEGATIVE (NEGATIVE); PROTEIN,URINE >=500 mg/dL (NEGATIVE); URINE SPECIFIC GRAVITY 1.014; UROBILINOGEN,URINE NEGATIVE mg/dL (<2.0)
[2017-04-28 18:06] VITALS: BP 138/82
--- NOTE | 2017-04-29 11:58 | EKG REPORT ---
SEVERITY:- OTHERWISE NORMAL ECG - SINUS RHYTHM BORDERLINE LEFT AXIS DEVIATION : Confirmed by: Mercy Crandall MD 29-Apr-2017 11:57:30
--- NOTE | 2017-04-29 11:58 | EKG REPORT ---
SEVERITY:- OTHERWISE NORMAL ECG - SINUS RHYTHM BORDERLINE LEFT AXIS DEVIATION : Confirmed by: Mercy Crandall MD 29-Apr-2017 11:57:25
== END 2017-04-28 18:06 | disposition home or self-care (01) ==
LOC: ER 12:29
DX: J18.9 Pneumonia, unspecified organism (principal); N39.0 Urinary tract infection, site not specified; I12.9 Hypertensive chronic kidney disease with stage 1 through stage 4 chronic kidney disease, or unspecified chronic kidney disease; E11.22 Type 2 diabetes mellitus with diabetic chronic kidney disease; N18.3 Chronic kidney disease, stage 3 (moderate); R53.1 Weakness; R42 Dizziness and giddiness; R06.02 Shortness of breath; R05 Cough; J44.9 Chronic obstructive pulmonary disease, unspecified; Z85.46 Personal history of malignant neoplasm of prostate; Z92.3 Personal history of irradiation
CPT/HCPCS: 36415; 71046; 80053; 81001; 82550; 82553; 83735; 83880; 84484; 85025; 87086; 93005; 93010; 99285

== ENCOUNTER 2017-05-13 12:28 | Emergency (ER) | payer MEDICARE, OTHER ==
[2017-05-13 13:01] LABS: ABSOLUTE BASOPHILS # (AUTO) 0.1 10^3/uL (0.0-0.2); ABSOLUTE EOSINOPHILS # (AUTO) 0.1 10^3/uL (0.0-0.6); ABSOLUTE MONOCYTES (AUTO) 0.6 10^3/uL (0.1-1.4); ABSOLUTE NEUT (AUTO) 5.1 10^3/uL (1.7-8.2); BASOPHILS % (AUTO) 0.9 % (0-2); EOSINOPHILS % (AUTO) 1.4 % (0-6); HEMATOCRIT 32.7 % (37.9-51.0); HEMOGLOBIN 10.7 g/dL (13.5-17.0); LYMPHOCYTES % (AUTO) 14.6 % (13-45); MEAN CORPUSCULAR HEMOGLOBIN 29.9 pg (27.0-33.4); MEAN CORPUSCULAR HGB CONC 32.7 g/dL (32.0-36.0); MEAN CORPUSCULAR VOLUME 91 fl (80-97); MONOCYTES % (AUTO) 8.4 % (3-13); PLATELET COUNT 257 10^3/uL (150-450); RED BLOOD COUNT 3.58 10^6/uL (4.35-5.55); RED CELL DISTRIBUTION WIDTH 14.4 % (11.5-14.0); SEGMENTED NEUTROPHILS % (AUTO) 74.7 % (42-78); TOTAL CELLS COUNTED % (AUTO) 100 %; WHITE BLOOD COUNT 6.9 10^3/uL (4.0-10.5)
[2017-05-13 13:04] LABS: INTERNATIONAL RATION (INR) 1.12; PROTHROMBIN TIME 15.2 SEC (11.4-15.4)
[2017-05-13 13:08] LABS: ALANINE AMINOTRANSFERASE 18 U/L (21-72); ALBUMIN 3.2 g/dL (3.5-5.0); ALKALINE PHOSPHATASE 96 U/L (38-126); ANION GAP 10 (5-19); ASPARTATE AMINO TRANSFERASE 20 U/L (17-59); BILIRUBIN,DIRECT 0.4 mg/dL (0.0-0.4); BILIRUBIN,TOTAL 0.4 mg/dL (0.2-1.3); BLOOD UREA NITROGEN 45 mg/dL (7-20); CALCIUM 9.4 mg/dL (8.4-10.2); CARBON DIOXIDE 23 mmol/L (22-30); CHLORIDE 107 mmol/L (98-107); GLUCOSE 188 mg/dL (75-110); POTASSIUM 5.2 mmol/L (3.6-5.0); SODIUM 139.9 mmol/L (137-145)
--- NOTE | 2017-05-13 13:08 | ER Document Report ---
ED General - General Chief Complaint: Breathing Difficulty Stated Complaint: DIFFICULTY BREATHING Time Seen by Provider: 05/13/17 13:06 Mode of Arrival: Medic Information source: Patient, Parent TRAVEL OUTSIDE OF THE [place] IN LAST 30 DAYS: No - HPI Notes: 86y yr old male with a history of hypertension,COPD, Hypercholesterolemia, type 2 diabetes, CKD III, PT presents to the ER via EMS with his and son for feeling felt like it was hard to breathe this morning [facility] At this time patient states that he feels great and denies any issues coming to the ER. He has been eating and drinking without issues, versus been urinating normally, denies any increased frequency urgency and having regular bowel movements without any issues. States he is not having any pain. Patient was recently admitted to the hospital within the last 2 months for SVT which she then converted to sinus rhythm. Denies any fevers or chills. Denies any chest pain, shortness of breath, nausea, vomiting, diarrhea, abdominal pain, penile pain, hematuria, rectal pain, saddle anesthesia, double vision, loss of vision, weakness or tingling down bilateral upper or lower extremities, dysphasia or dysarthria. Any rashes. Patient did get the flu shot this year. Denies any nasal congestion, ear pain, sore throat. Reports a nonproductive cough. eating and drinking without issues. - Related Data Allergies/Adverse Reactions: No Known Allergies Allergy (Verified 04/28/17 12:30) Past Medical History - General Information source: Patient, Parent - Social History Smoking Status: Former Smoker Frequency of alcohol use: None Drug Abuse: None Family History: Reviewed & Not Pertinent, Other Patient has suicidal ideation: No Patient has homicidal ideation: No - Past Medical History Cardiac Medical History: Reports: Hx Atrial Fibrillation, Hx Hypercholesterolemia, Hx Hypertension Pulmonary Medical History: Reports: Hx COPD Neurological Medical History: Denies: Hx Cerebrovascular Accident Endocrine Medical History: Reports: Hx Diabetes Mellitus Type 2 - non insulin dependent Renal/ Medical History: Denies: Hx Peritoneal Dialysis Malignancy Medical History: Reports Hx Prostate Cancer - pt states has had radiation for same GI Medical History: Denies: Hx Hepatitis, Hx Hiatal Hernia, Hx Ulcer Musculoskeltal Medical History: Reports Hx Arthritis, Reports Hx Gout - * Patient states he had an episode of gout 2012 Infectious Medical History: Denies: Hx Hepatitis Past Surgical History: Reports: Hx Abdominal Surgery - hernia repair. Denies: Hx Open Heart Surgery, Hx Pacemaker - Immunizations Hx Diphtheria, Pertussis, Tetanus Vaccination: Yes Hx Pneumococcal Vaccination: 12/16/12 Review of Systems - Review of Systems Constitutional: No symptoms reported EENT: No symptoms reported Cardiovascular: No symptoms reported Respiratory: See HPI Gastrointestinal: No symptoms reported Genitourinary: No symptoms reported Male Genitourinary: No symptoms reported Musculoskeletal: No symptoms reported Skin: No symptoms reported Hematologic/Lymphatic: No symptoms reported Neurological/Psychological: No symptoms reported Physical Exam - Vital signs Vitals: Resp BP Pulse Ox 22 H 142/79 H 95 05/13/17 12:39 05/13/17 12:39 05/13/17 12:39 - Notes Notes: PHYSICAL EXAMINATION: GENERAL: chronically ill, well-nourished and in no acute distress. HEAD: Atraumatic, normocephalic. EYES: Pupils equal round and reactive to light, extraocular movements intact, sclera anicteric, conjunctiva are normal. ENT: Nares patent, oropharynx clear without exudates. Moist mucous membranes. NECK: Normal range of motion, supple without lymphadenopathy LUNGS: Breath sounds clear to auscultation bilaterally and equal. No wheezes rales or rhonchi. HEART: This provider at bedside, heart rate was 78. Regular rate and rhythm without murmurs ABDOMEN: Soft, nontender, nondistended abdomen. No guarding, no rebound. No masses appreciated. Musculoskeletal: Normal range of motion, no pitting or edema. No cyanosis. NEUROLOGICAL: Cranial nerves grossly intact. Normal speech, normal gait. Normal sensory, motor exams PSYCH: Normal mood, normal affect. SKIN: Warm, Dry, normal turgor, no rashes or lesions noted. Course - Re-evaluation Re-evalutation: Since in normal sinus rhythm while at bedside. Heart rate 77. Laboratory findings insistent with his baseline lab values from his previous visits in the emergency room. patient normal sinus rhythm and in no distress. Cardiac workup negative for any acute findings. Chest x-ray negative for any acute findings per radiology. Patient states he feels better and does not want to stay in the ER. Patient is in good spirits, pulse ox 100. consulted with his PCP, , regarding patient's laboratory, diagnostic and clinical findings, Dr. Wang to see if he felt that he would need to be admitted although all of his results were negative for any acute etiologies. He stated that patient will chronically have respiratory issues due to his extensive COPD and likely he will continue to have this issue as they have discussed it extensively at his office visits. Also made him aware that he does have a UTI, will treat with antibiotics and sent for culture. Patient has no signs or symptoms of any urosepticemia he does not need to be admitted at this time, he will follow-up with him in his office within a week. Moiz with patient and family these findings as well as answering any questions that they have. Patient family felt that patient would be appropriate to go home and there was no need for him to stay in the emergency room. Discussed with family and patient that if any symptoms become worse to return to the emergency room immediately. Patient and family verbalized understanding of these instructions and agree with plan of care. Patient was discharged home with close follow-up with his primary care provider. After performing a Medical Screening Examination, I estimate there is LOW risk for RUPTURED ESOPHAGUS, PNEUMOTHORAX, PULMONARY EMBOLISM, ACUTE CORONARY SYNDROME, OR THORACIC AORTIC DISSECTION, thus I consider the discharge disposition reasonable. I have reevaluated this patient multiple times and no significant life threatening changes are noted. The patient and I have discussed the diagnosis and risks, and we agree with discharging home with close follow-up. We also discussed returning to the Emergency Department immediately if new or worsening symptoms occur. We have discussed the symptoms which are most concerning (e.g., bloody sputum, worsening pain or shortness of breath) that necessitate immediate return. - Vital Signs Vital signs: Temp Pulse Resp BP Pulse Ox 97.9 F 17 135/99 H 100 05/13/17 12:45 05/13/17 14:48 05/13/17 14:48 05/13/17 14:48 - Laboratory Result Diagrams: 05/13/17 12:39 05/13/17 12:39 Laboratory results interpreted by me: 05/13/17 05/13/17 05/13/17 12:39 12:39 13:38 RBC 3.58 L Hgb 10.7 L Hct 32.7 L RDW 14.4 H Potassium 5.2 H BUN 45 H Creatinine 2.22 H Est GFR ( Amer) 34 L Est GFR (Non-Af Amer) 28 L Glucose 188 H ALT 18 L Albumin 3.2 L Urine Protein >=500 H Urine Glucose (UA) 50 H Ur Leukocyte Esterase TRACE H Urine Ascorbic Acid 40 H - EKG Interpretation by Me EKG shows normal: Sinus rhythm Rate: Tachycardia When compared to previous EKG there are: No significant change Discharge - Discharge Clinical Impression: UTI (urinary tract infection) Qualifiers: Urinary tract infection type: acute cystitis Hematuria presence: without hematuria Qualified Code(s): N30.00 - Acute cystitis without hematuria Condition: Good Disposition: HOME, SELF-CARE Instructions: Cephalexin ([facility]), Urinary Tract Infection ([facility]) Additional Instructions: URINARY TRACT INFECTION: Your evaluation indicates that you have a urinary tract infection. This is due to germs growing in the bladder. This is a common problem. This infection usually responds quickly to antibiotics. Your antibiotic should be taken exactly as prescribed. Drink plenty of fluids -- three to four quarts a day. Occasionally, a bladder anesthetic will be prescribed to help stop the feeling of urgency until the antibiotic has a chance to clear the infection. This may cause your urine to be dark orange. Certain urine infections require a culture. If the doctor obtained a culture, the results will be back in two days. You should call to see if a change in treatment is needed. A repeat urinalysis after you finish treatment is often recommended. The physician will let you know if further testing is required. Call the doctor if you develop fever, chills, flank pain, inability to urinate, or blood in the urine. ANTIBIOTIC THERAPY: You have been given an antibiotic prescription. It's important that you take all the medication, unless instructed otherwise by your physician. Failure to complete the entire course can result in relapse of your condition. Common side effects of antibiotics include nausea, intestinal cramping, or diarrhea. Women may develop vaginal yeast infections, and babies can get yeast (thrush) in the mouth following the use of antibiotics. Contact your physician if you develop significant side effects from this medication. Allergy to this antibiotic can result in hives, wheezing, faintness, or itching. If symptoms of allergy occur, stop the medication and call the doctor. CEPHALEXIN: The antibiotic you've been prescribed is a member of the cephalosporin class. This type of antibiotic covers a wide variety of infections, including those of the skin, lungs, and urinary tract. It's useful for staph infections. This antibiotic is slightly similar to the penicillin family. In rare cases , a person who is allergic to penicillin will also be allergic to this medication. If you have had a severe allergic reaction to penicillin, and have not taken this antibiotic since that time, notify your doctor. Antibiotics which cover many germs ("broad spectrum" antibiotics) are more likely to cause diarrhea or "yeast" infections. Women prone to vaginal yeast problems may suffer an attack after taking this antibiotic. In infants, oral thrush (white spots "stuck" on the cheek) or yeast diaper rash may result. See your doctor if these problems occur. Call at once if you develop itching, hives , shortness of breath, or lightheadedness. FOLLOW-UP CARE: If you have been referred to a physician for follow-up care, call the physician s office for an appointment as you were instructed or within the next two days. If you experience worsening or a significant change in your symptoms, notify the physician immediately or return to the Emergency Department at any time for re-evaluation. Follow-up with Dr. Wang, [facility], tomorrow in the morning for reevaluation. Return to the emergency room with symptoms become worse increase oral hydration. Take Tylenol as needed. Take antibiotic as directed for 5 days. Prescriptions: Cephalexin Monohydrate [Keflex 250 mg Capsule] 250 mg PO BID #10 capsule Referrals: BEN WANG MD [Primary Care Provider] - Follow up as needed
--- NOTE | 2017-05-13 13:14 | RADIOLOGY REPORT (SQ) ---
EXAM DESCRIPTION: CHEST SINGLE VIEW COMPLETED DATE/TIME: 05/13/2017 12:54 pm REASON FOR STUDY: bed 14 sepsis protocol COMPARISON: 04/28/2017. EXAM PARAMETERS: NUMBER OF VIEWS: One view. TECHNIQUE: Single frontal radiographic view of the chest acquired. RADIATION DOSE: NA LIMITATIONS: None. FINDINGS: LUNGS AND PLEURA: Mild interstitial prominence. No focal infiltrates, masses or pneumotho rax. No pleural effusion. MEDIASTINUM AND HILAR STRUCTURES: No masses. Contour normal. HEART AND VASCULAR STRUCTURES: Heart normal in size. Normal vasculature. BONES: No acute findings. Chronic changes in the shoulders. HARDWARE: None in the chest. OTHER: No other significant finding. IMPRESSION: NO ACUTE RADIOGRAPHIC FINDING IN THE CHEST. TECHNICAL DOCUMENTATION: JOB ID: [id number] [employer]- All Rights Reserved
[2017-05-13 13:55] LABS: CREATINE KINASE MB 0.51 ng/mL (<4.55); NT PRO BNP 307 pg/mL (<450); TROPONIN I < 0.012 ng/mL
[2017-05-13 14:04] LABS: APPEARANCE,URINE SLIGHTLY-CLOUDY; BILIRUBIN,URINE NEGATIVE (NEGATIVE); COLOR,URINE YELLOW; GLUCOSE, URINE 50 mg/dL (NEGATIVE); KETONES,URINE NEGATIVE (NEGATIVE); LEUKOCYTE ESTERASE,URINE TRACE (NEGATIVE); NITRITE,URINE NEGATIVE (NEGATIVE); PROTEIN,URINE >=500 mg/dL (NEGATIVE); URINE SPECIFIC GRAVITY 1.012; UROBILINOGEN,URINE NEGATIVE mg/dL (<2.0)
[2017-05-13 14:51] VITALS: BP 135/99
--- NOTE | 2017-05-13 20:52 | EKG REPORT ---
SEVERITY:- OTHERWISE NORMAL ECG - SINUS TACHYCARDIA LEFT AXIS DEVIATION : Confirmed by: Nelly Massey 13-May-2017 20:51:56
== END 2017-05-13 15:01 | disposition home or self-care (01) ==
LOC: ER 12:28
DX: N30.00 Acute cystitis without hematuria (principal); J44.9 Chronic obstructive pulmonary disease, unspecified; I10 Essential (primary) hypertension; E11.9 Type 2 diabetes mellitus without complications; R05 Cough; Z85.46 Personal history of malignant neoplasm of prostate; Z92.3 Personal history of irradiation
CPT/HCPCS: 36415; 71045; 80053; 81001; 82553; 83880; 84484; 85025; 85610; 87040; 87077; 87086; 87186; 93005; 93010; 99285

== ENCOUNTER 2017-05-30 13:24 | Emergency (ER) | payer MEDICARE, OTHER ==
--- NOTE | 2017-05-30 13:55 | ER Document Report ---
ED Medical Screen (RME) - General Chief Complaint: Dizziness Stated Complaint: DIZZY Time Seen by Provider: 05/30/17 13:53 Notes: dizzy/weak for severald days. denies pain/sob TRAVEL OUTSIDE OF THE [place] IN LAST 30 DAYS: No - Related Data Allergies/Adverse Reactions: No Known Allergies Allergy (Verified 05/30/17 13:25) Past Medical History - Past Medical History Cardiac Medical History: Reports: Hx Atrial Fibrillation, Hx Hypercholesterolemia, Hx Hypertension Pulmonary Medical History: Reports: Hx COPD Neurological Medical History: Denies: Hx Cerebrovascular Accident Endocrine Medical History: Reports: 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 Denies: Hx Open Heart Surgery, Hx Pacemaker - Immunizations Hx Diphtheria, Pertussis, Tetanus Vaccination: Yes History of Influenza Vaccine for 12/2016 - 05/2017 Season: Yes Influenza Administration Date for 12/2016 - 05/2017 Season: 01/31/17 Physical Exam - Vital signs Vitals: Temp Pulse Resp BP Pulse Ox 97.8 F 70 16 181/99 H 98 05/30/17 13:38 05/30/17 13:38 05/30/17 13:38 05/30/17 13:38 05/30/17 13:38 Course - Vital Signs Vital signs: Temp Pulse Resp BP Pulse Ox 97.8 F 70 16 181/99 H 98 05/30/17 13:38 05/30/17 13:38 05/30/17 13:38 05/30/17 13:38 05/30/17 13:38
[2017-05-30 14:40] LABS: ABSOLUTE BASOPHILS # (AUTO) 0.1 10^3/uL (0.0-0.2); ABSOLUTE EOSINOPHILS # (AUTO) 0.3 10^3/uL (0.0-0.6); ABSOLUTE LYMPHOCYTES (AUTO) 1.2 10^3/uL (0.5-4.7); ABSOLUTE MONOCYTES (AUTO) 0.8 10^3/uL (0.1-1.4); ABSOLUTE NEUT (AUTO) 3.9 10^3/uL (1.7-8.2); BASOPHILS % (AUTO) 1.3 % (0-2); EOSINOPHILS % (AUTO) 5.3 % (0-6); HEMATOCRIT 32.2 % (37.9-51.0); HEMOGLOBIN 10.6 g/dL (13.5-17.0); LYMPHOCYTES % (AUTO) 19.4 % (13-45); MEAN CORPUSCULAR HEMOGLOBIN 29.2 pg (27.0-33.4); MEAN CORPUSCULAR HGB CONC 32.8 g/dL (32.0-36.0); MEAN CORPUSCULAR VOLUME 89 fl (80-97); MONOCYTES % (AUTO) 13.1 % (3-13); PLATELET COUNT 273 10^3/uL (150-450); RED BLOOD COUNT 3.62 10^6/uL (4.35-5.55); RED CELL DISTRIBUTION WIDTH 14.2 % (11.5-14.0); SEGMENTED NEUTROPHILS % (AUTO) 60.9 % (42-78); TOTAL CELLS COUNTED % (AUTO) 100 %; WHITE BLOOD COUNT 6.3 10^3/uL (4.0-10.5)
--- NOTE | 2017-05-30 14:41 | RADIOLOGY REPORT (SQ) ---
EXAM DESCRIPTION: CT HEAD WITHOUT COMPLETED DATE/TIME: 05/30/2017 2:28 pm REASON FOR STUDY: dizzy COMPARISON: CT brain 02/08/2017, 08/31/2012 TECHNIQUE: Axial images acquired through the brain without intravenous contrast. Images reviewed wi th bone, brain and subdural windows. Images stored on PACS. All CT scanners at this facility use dose modulation, iterative reconstruction, and/or weight based d osing when appropriate to reduce radiation dose to as low as reasonably achievable (ALARA). [facility]: Dose Right [facility]: CareDose [facility]: Dose Right [facility]: Teradose 4D [facility]: [employer] RADIATION DOSE: CT Rad equipment meets quality standard of care and radiation dose reduction techniq ues were employed. CTDIvol: 64.6 mGy. DLP: 1292 mGy-cm. mGy. LIMITATIONS: None. FINDINGS: VENTRICLES: Normal size and contour. CEREBRUM: Old cortical infarct with focal encephalomalacia left posterior frontal region axial images 28-30. Diffuse bilateral bifrontal and biparietal chronic small vessel ischemic change. No CT evidence of acute large territory ischemic change, acute intracranial hemorrhage, mass effect o r midline shift. On axial image 24, punctate densities are seen over the right frontal and right temporoparietal subar achnoid space. Question old prior myelogram in the 1970s with Pantopaque. CEREBELLUM: No masses. No hemorrhage. No alteration of density. No evidence for acute infarction. EXTRAAXIAL SPACES: No fluid collections. No masses. ORBITS AND GLOBE: No intra- or extraconal masses. Normal contour of globe without masses. CALVARIUM: No fracture. PARANASAL SINUSES: No fluid or mucosal thickening. SOFT TISSUES: No mass or hematoma. OTHER: No other significant finding. 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 Moderate diffuse chronic s mall vessel ischemic change, stable EVIDENCE OF ACUTE STROKE: NO. COMMENT: Quality ID # [id number]: Final reports with documentation of one or more dose reduction techniques (e.g., Automated exposure control, adjustment of the mA and/or kV according to patient size, use of iterative reconstruction technique) TECHNICAL DOCUMENTATION: JOB ID: [id number] [employer]- All Rights Reserved Reading location - IP/workstation name: [facility]
--- NOTE | 2017-05-30 14:51 | ER Document Report ---
ED General - General Chief Complaint: Dizziness Stated Complaint: DIZZY Time Seen by Provider: 05/30/17 13:53 Notes: This is a very pleasant 86-year-old -[place]onegas[place] male to the emergency department with complaint of dizziness. Patient states that he woke up this morning and shortly after awaking began to notice he was a little dizzy. It only lasted for short while and went away. Might of had some shortness of breath at that time but has had shortness of breath for the last couple of months. Was hospitalized recently for congestive heart failure. Was placed on oxygen after discharge from the hospital. States he was wearing his oxygen at home. Wears it mostly at night and when he goes out and about. Denies any shortness of breath at this time. Denies any chest pain. Denies any increased swelling of his calves. Denies any other symptoms related to his HEENT. No prior history of vertigo that he can remember. No fever. No chills. No sweats. No headache. No weakness on one side of the body of the other. TRAVEL OUTSIDE OF THE [place] IN LAST 30 DAYS: No - Related Data Allergies/Adverse Reactions: No Known Allergies Allergy (Verified 05/30/17 13:25) Past Medical History - General Information source: Patient - Social History Smoking Status: Former Smoker Cigarette use (# per day): No Chew tobacco use (# tins/day): No Smoking Education Provided: No Frequency of alcohol use: Rare Drug Abuse: None Lives with: Family, Spouse/Significant other Family History: Reviewed & Not Pertinent, Other Patient has suicidal ideation: No Patient has homicidal ideation: No - Past Medical History Cardiac Medical History: Reports: Hx Atrial Fibrillation, Hx Hypercholesterolemia, Hx Hypertension Pulmonary Medical History: Reports: Hx COPD Neurological Medical History: Denies: Hx Cerebrovascular Accident Endocrine Medical History: Reports: 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 Denies: Hx Open Heart Surgery, Hx Pacemaker - Immunizations Hx Diphtheria, Pertussis, Tetanus Vaccination: Yes Hx Pneumococcal Vaccination: 12/16/12 Review of Systems - Review of Systems Constitutional: denies: Fever, Malaise, Weakness EENT: Vertigo. denies: Blurred vision, Tearing, Ear pain, Throat pain, Difficulty swallowing, Throat swelling, Mouth pain Cardiovascular: Dizziness. denies: Chest pain, Palpitations, Heart racing, Orthopnea, Dyspnea, Syncope, Edema Respiratory: Short of breath. denies: Cough, Hurts to breathe, Sputum, Stridor Gastrointestinal: denies: Abdominal pain, Diarrhea, Nausea, Vomiting Genitourinary: denies: No symptoms reported, Burning, Dysuria, Discharge, Frequency, Urgency Musculoskeletal: denies: Back pain, Gout, Joint pain, Joint swelling, Muscle pain, Muscle stiffness Skin: denies: Dryness, Lesions, Lumps, Rash Hematologic/Lymphatic: denies: Anemia, Blood clots, Easy bleeding, Easy bruising Neurological/Psychological: denies: Confusion, Dementia, Depression, Anxiety, Weakness, Paralysis, Seizure, Lost consciousness, Headaches, Numbness Physical Exam - Vital signs Vitals: Temp Pulse Resp BP Pulse Ox 97.8 F 70 16 181/99 H 98 05/30/17 13:38 05/30/17 13:38 05/30/17 13:38 05/30/17 13:38 05/30/17 13:38 Interpretation: Hypertensive - General General appearance: Appears well, Alert - HEENT Head: Normocephalic, Atraumatic Eyes: Normal Pupils: PERRL - Respiratory Respiratory status: No respiratory distress Chest status: Nontender Breath sounds: Normal Chest palpation: Normal - Cardiovascular Rhythm: Regular Heart sounds: Normal auscultation Murmur: No - Abdominal Inspection: Normal Distension: No distension Bowel sounds: Normal Tenderness: Nontender Organomegaly: No organomegaly - Back Back: Normal, Nontender - Extremities General upper extremity: Normal inspection, Nontender, Normal color, Normal ROM , Normal temperature General lower extremity: Normal inspection, Nontender, Normal color, Normal ROM , Normal temperature, Normal weight bearing. No: Jessica's sign - Neurological Neuro grossly intact: Yes Cognition: Normal Orientation: AAOx4 Jia Coma Scale Eye Opening: Spontaneous [place] Coma Scale Verbal: Oriented [place] Coma Scale Motor: Obeys Commands [place] Coma Scale Total: 15 Speech: Normal Motor strength normal: LUE, RUE, LLE, RLE Sensory: Normal - Psychological Associated symptoms: Normal affect, Normal mood - Skin Skin Temperature: Warm Skin Moisture: Dry Skin Color: Normal Course - Re-evaluation Re-evalutation: 05/30/17 16:45 Patient without symptoms at this time. All of his labs are basically at baseline. No symptoms at this time. Does have an abnormal chest x-ray but when comparing to previous does not have any significant change in my opinion. Comfortable at this time asking patient to follow-up with his regular doctor - Vital Signs Vital signs: Temp Pulse Resp BP Pulse Ox 97.8 F 70 16 181/99 H 98 05/30/17 13:38 05/30/17 13:38 05/30/17 13:38 05/30/17 13:38 05/30/17 13:38 - Laboratory Result Diagrams: 05/30/17 14:20 05/30/17 14:20 Laboratory results interpreted by me: 05/30/17 05/30/17 05/30/17 14:20 14:20 14:20 RBC 3.62 L Hgb 10.6 L Hct 32.2 L RDW 14.2 H Monocytes % 13.1 H Potassium 5.3 H Chloride 111 H BUN 32 H Creatinine 2.06 H Est GFR ( Amer) 37 L Est GFR (Non-Af Amer) 31 L Glucose 124 H ALT 17 L NT-Pro-B Natriuret Pep 505 H Urine Protein Urine Ascorbic Acid 05/30/17 15:15 RBC Hgb Hct RDW Monocytes % Potassium Chloride BUN Creatinine Est GFR ( Amer) Est GFR (Non-Af Amer) Glucose ALT NT-Pro-B Natriuret Pep Urine Protein 100 H Urine Ascorbic Acid 20 H - EKG Interpretation by Ma EKG shows normal: Sinus rhythm, [place], Intervals, QRS Complexes, ST-T Waves When compared to previous EKG there are: No significant change Discharge - Discharge Clinical Impression: Dizziness Condition: Good Disposition: HOME, SELF-CARE Instructions: Vertigo ([facility]), Dizziness ([facility]) Referrals: BEN WANG MD [Primary Care Provider] - Follow up in 3-5 days
[2017-05-30 15:01] LABS: ALANINE AMINOTRANSFERASE 17 U/L (21-72); ALBUMIN 3.5 g/dL (3.5-5.0); ALKALINE PHOSPHATASE 83 U/L (38-126); ANION GAP 6 (5-19); ASPARTATE AMINO TRANSFERASE 19 U/L (17-59); BILIRUBIN,DIRECT 0.2 mg/dL (0.0-0.4); BILIRUBIN,TOTAL 0.2 mg/dL (0.2-1.3); BLOOD UREA NITROGEN 32 mg/dL (7-20); CARBON DIOXIDE 25 mmol/L (22-30); CHLORIDE 111 mmol/L (98-107); GLUCOSE 124 mg/dL (75-110); POTASSIUM 5.3 mmol/L (3.6-5.0); SODIUM 142.4 mmol/L (137-145); TOTAL PROTEIN 7.2 g/dL (6.3-8.2)
[2017-05-30] MEDS ORDERED: CLONIDINE HCL 0.1 MG TABLET PO ONE (15:21)
[2017-05-30] MEDS ORDERED: METOPROLOL TARTRATE 25 MG TABLET PO ONE (15:21)
[2017-05-30 15:47] LABS: APPEARANCE,URINE CLEAR; BILIRUBIN,URINE NEGATIVE (NEGATIVE); COLOR,URINE YELLOW; GLUCOSE, URINE NEGATIVE (NEGATIVE); KETONES,URINE NEGATIVE (NEGATIVE); LEUKOCYTE ESTERASE,URINE NEGATIVE (NEGATIVE); NITRITE,URINE NEGATIVE (NEGATIVE); PROTEIN,URINE 100 mg/dL (NEGATIVE); URINE SPECIFIC GRAVITY 1.012; UROBILINOGEN,URINE NEGATIVE mg/dL (<2.0)
--- NOTE | 2017-05-30 16:00 | RADIOLOGY REPORT (SQ) ---
EXAM DESCRIPTION: CHEST PA/LAT COMPLETED DATE/TIME: 05/30/2017 3:31 pm REASON FOR STUDY: SOB COMPARISON: CT chest 03/22/2017 Chest films 04/19/2017, 04/28/2017, 05/13/2017 EXAM PARAMETERS: NUMBER OF VIEWS: two views TECHNIQUE: Digital Frontal and Lateral radiographic views of the chest acquired. RADIATION DOSE: NA LIMITATIONS: none FINDINGS: LUNGS AND PLEURA: End-stage honeycomb appearance around the periphery of both lungs. Ther e is bronchiectasis in the bilateral lower lobes and retrocardiac regions. No dense consolidation wo rrisome for acute pneumonia. No pleural effusion. No pneumothorax. MEDIASTINUM AND HILAR STRUCTURES: No masses or contour abnormalities. HEART AND VASCULAR STRUCTURES: Heart normal size. No evidence for failure. BONES: No acute findings. HARDWARE: None in the chest. OTHER: No other significant finding. IMPRESSION: Abnormal lung parenchyma with bronchiectasis in both lower lobes and pulmonary fibrosis with honeycombing around the periphery of both lungs. No acute findings today TECHNICAL DOCUMENTATION: JOB ID: [id number] [employer]- All Rights Reserved Reading location - IP/workstation name: [facility]
[2017-05-30 17:30] VITALS: BP 178/82
--- NOTE | 2017-05-30 20:03 | EKG REPORT ---
SEVERITY:- BORDERLINE ECG - SINUS RHYTHM WITH PAC, RATE 65-76 : Confirmed by: Moses Olea MD 30-May-2017 20:03:31
== END 2017-05-30 17:55 | disposition home or self-care (01) ==
LOC: ER 13:24
DX: R42 Dizziness and giddiness (principal); I50.9 Heart failure, unspecified; Z99.81 Dependence on supplemental oxygen; Z87.891 Personal history of nicotine dependence
CPT/HCPCS: 93005; 99285; 36415; 85025; 80053; 81001; 84484; 83880; 71046; 70450; 93010; A9270 ×2

== ENCOUNTER 2017-06-08 00:34 | Emergency (ER) | payer MEDICARE, OTHER ==
--- NOTE | 2017-06-08 02:09 | ER Document Report ---
ED General - General Chief Complaint: General Weakness Stated Complaint: WEAKNESS Time Seen by Provider: 06/08/17 01:34 Mode of Arrival: Ambulatory Information source: Patient, Relative - TRAVEL OUTSIDE OF THE [place] IN LAST 30 DAYS: No - HPI Patient complains to provider of: sleeping issues Onset: Just prior to arrival Onset/Duration: Intermittent Associated symptoms: None Exacerbated by: Denies Relieved by: Denies Similar symptoms previously: Yes Recently seen / treated by doctor: Yes - today Notes: 86-year-old -[place] male presents from home with his and child. He states that he is having trouble with sleep. He states around 10:00 tonight he got tired but when he went to fall asleep "it is not my usual sleep." He states he is not sure what goes on but it is not how he usually sleeps. He woke up his son who then woke up patient's and the droop to the emergency department. Patient has no other complaints. Patient just saw his primary medical doctor today. Patient states he does have high blood pressure and it was elevated today. Patient is alert and oriented 3 with mild confusion. - Related Data Allergies/Adverse Reactions: No Known Allergies Allergy (Verified 05/30/17 13:25) Past Medical History - General Information source: Patient, Relative - Social History Smoking Status: Former Smoker Lives with: Family Family History: Reviewed & Not Pertinent, Other Patient has suicidal ideation: No Patient has homicidal ideation: No - Past Medical History Cardiac Medical History: Reports: Hx Atrial Fibrillation, Hx Hypercholesterolemia, Hx Hypertension Pulmonary Medical History: Reports: Hx COPD Neurological Medical History: Denies: Hx Cerebrovascular Accident Endocrine Medical History: Reports: 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 Denies: Hx Open Heart Surgery, Hx Pacemaker - Immunizations Hx Diphtheria, Pertussis, Tetanus Vaccination: Yes Hx Pneumococcal Vaccination: 12/16/12 Review of Systems - Review of Systems Constitutional: No symptoms reported EENT: No symptoms reported Cardiovascular: No symptoms reported Respiratory: No symptoms reported Gastrointestinal: No symptoms reported Genitourinary: No symptoms reported Male Genitourinary: No symptoms reported Musculoskeletal: No symptoms reported Skin: No symptoms reported Hematologic/Lymphatic: No symptoms reported Neurological/Psychological: No symptoms reported Physical Exam - Vital signs Vitals: Temp Pulse Resp BP Pulse Ox 97.4 F 85 18 181/79 H 96 06/08/17 00:52 06/08/17 00:52 06/08/17 00:52 06/08/17 00:52 06/08/17 00:52 - Notes Notes: PHYSICAL EXAMINATION: GENERAL: Well-appearing, well-nourished and in no acute distress. HEAD: Atraumatic, normocephalic. EYES: Pupils equal round and reactive to light, extraocular movements intact, sclera anicteric, conjunctiva are normal. ENT: Nares patent, oropharynx clear without exudates. Moist mucous membranes. NECK: Normal range of motion, supple without lymphadenopathy LUNGS: Breath sounds clear to auscultation bilaterally and equal. No wheezes rales or rhonchi. HEART: Regular rate and rhythm ABDOMEN: Soft, nontender, nondistended abdomen. No guarding, no rebound. No masses appreciated. Musculoskeletal: Normal range of motion, no pitting or edema. No cyanosis. NEUROLOGICAL: Cranial nerves grossly intact. Normal speech. Normal sensory, motor exams PSYCH: Normal mood, normal affect. SKIN: Warm, Dry, normal turgor, no rashes or lesions noted. Course - Vital Signs Vital signs: Temp Pulse Resp BP Pulse Ox 97.4 F 85 18 181/79 H 96 06/08/17 00:52 06/08/17 00:52 06/08/17 00:52 06/08/17 00:52 06/08/17 00:52 - Laboratory Result Diagrams: 06/08/17 03:01 06/08/17 03:01 Laboratory results interpreted by me: 06/08/17 06/08/17 06/08/17 03:01 03:01 03:22 RBC 3.37 L Hgb 9.9 L Hct 29.9 L Chloride 110 H BUN 37 H Creatinine 1.99 H Est GFR ( Amer) 39 L Est GFR (Non-Af Amer) 32 L Glucose 137 H Urine Protein >=500 H Urine Glucose (UA) 50 H Urine Ascorbic Acid 20 H Discharge - Discharge Clinical Impression: Chronic kidney disease, stage III (moderate) Disposition: HOME, SELF-CARE Additional Instructions: Follow up with your physician tomorrow for further care or return to the ED IMMEDIATELY if symptoms worsen or new concerns occur. If you cannot afford to follow up with your primary care physician a list of low cost clinics have been provided at the end of your discharge papers as well. Referrals: BEN WANG MD [Primary Care Provider] - Follow up as needed
[2017-06-08 03:20] LABS: ABSOLUTE BASOPHILS # (AUTO) 0.1 10^3/uL (0.0-0.2); ABSOLUTE EOSINOPHILS # (AUTO) 0.1 10^3/uL (0.0-0.6); ABSOLUTE LYMPHOCYTES (AUTO) 1.2 10^3/uL (0.5-4.7); ABSOLUTE MONOCYTES (AUTO) 0.7 10^3/uL (0.1-1.4); BASOPHILS % (AUTO) 1.2 % (0-2); EOSINOPHILS % (AUTO) 0.7 % (0-6); HEMATOCRIT 29.9 % (37.9-51.0); HEMOGLOBIN 9.9 g/dL (13.5-17.0); LYMPHOCYTES % (AUTO) 14.4 % (13-45); MEAN CORPUSCULAR HEMOGLOBIN 29.4 pg (27.0-33.4); MEAN CORPUSCULAR HGB CONC 33.1 g/dL (32.0-36.0); MEAN CORPUSCULAR VOLUME 89 fl (80-97); MONOCYTES % (AUTO) 9.1 % (3-13); PLATELET COUNT 271 10^3/uL (150-450); RED BLOOD COUNT 3.37 10^6/uL (4.35-5.55); SEGMENTED NEUTROPHILS % (AUTO) 74.6 % (42-78); TOTAL CELLS COUNTED % (AUTO) 100 %
[2017-06-08 03:31] LABS: ANION GAP 10 (5-19); BLOOD UREA NITROGEN 37 mg/dL (7-20); CALCIUM 8.9 mg/dL (8.4-10.2); CARBON DIOXIDE 24 mmol/L (22-30); CHLORIDE 110 mmol/L (98-107); GLUCOSE 137 mg/dL (75-110); POTASSIUM 3.9 mmol/L (3.6-5.0); SODIUM 143.5 mmol/L (137-145)
[2017-06-08 03:40] LABS: APPEARANCE,URINE CLEAR; BILIRUBIN,URINE NEGATIVE (NEGATIVE); COLOR,URINE YELLOW; GLUCOSE, URINE 50 mg/dL (NEGATIVE); KETONES,URINE NEGATIVE (NEGATIVE); LEUKOCYTE ESTERASE,URINE NEGATIVE (NEGATIVE); NITRITE,URINE NEGATIVE (NEGATIVE); PROTEIN,URINE >=500 mg/dL (NEGATIVE); URINE SPECIFIC GRAVITY 1.014; UROBILINOGEN,URINE NEGATIVE mg/dL (<2.0)
[2017-06-08 04:36] VITALS: BP 169/74
== END 2017-06-08 04:12 | disposition home or self-care (01) ==
LOC: ER 00:34
DX: I12.9 Hypertensive chronic kidney disease with stage 1 through stage 4 chronic kidney disease, or unspecified chronic kidney disease (principal); N18.3 Chronic kidney disease, stage 3 (moderate); R53.1 Weakness; R03.0 Elevated blood-pressure reading, without diagnosis of hypertension; R41.0 Disorientation, unspecified; I48.91 Unspecified atrial fibrillation; E78.00 Pure hypercholesterolemia, unspecified; Z87.891 Personal history of nicotine dependence
CPT/HCPCS: 36415; 80048; 81001; 85025; 99285

== ENCOUNTER → 2017-10-11 | Outpatient (CLI) | payer MEDICARE, OTHER ==
[2017-10-11 13:10] LABS: HEMATOCRIT 30.9 % (37.9-51.0); HEMOGLOBIN 10.4 g/dL (13.5-17.0); MEAN CORPUSCULAR HEMOGLOBIN 29.5 pg (27.0-33.4); MEAN CORPUSCULAR HGB CONC 33.6 g/dL (32.0-36.0); MEAN CORPUSCULAR VOLUME 88 fl (80-97); PLATELET COUNT 267 10^3/uL (150-450); RED BLOOD COUNT 3.51 10^6/uL (4.35-5.55); RED CELL DISTRIBUTION WIDTH 13.9 % (11.5-14.0); WHITE BLOOD COUNT 6.2 10^3/uL (4.0-10.5)
[2017-10-11 13:28] LABS: ALANINE AMINOTRANSFERASE 17 U/L (21-72); ALBUMIN 3.6 g/dL (3.5-5.0); ALKALINE PHOSPHATASE 83 U/L (38-126); ANION GAP 11 (5-19); ASPARTATE AMINO TRANSFERASE 19 U/L (17-59); BILIRUBIN,DIRECT 0.3 mg/dL (0.0-0.4); BILIRUBIN,TOTAL 0.5 mg/dL (0.2-1.3); BLOOD UREA NITROGEN 52 mg/dL (7-20); CALCIUM 9.1 mg/dL (8.4-10.2); CARBON DIOXIDE 25 mmol/L (22-30); CHLORIDE 111 mmol/L (98-107); GLUCOSE 102 mg/dL (75-110); IRON(TIBC) 120.8 ug/dL (49-181); PHOSPHORUS 4.6 mg/dL (2.5-4.5); POTASSIUM 5.6 mmol/L (3.6-5.0); SODIUM 147.4 mmol/L (137-145); TOTAL PROTEIN 7.6 g/dL (6.3-8.2)
[2017-10-12 16:40] LABS: A/G RATIO 0.8 (0.7-1.7); ALBUMIN 2 3.2 g/dL (2.9-4.4); ALPHA-2-GLOBULIN 2 0.7 g/dL (0.4-1.0); BETA GLOBULINS 1.1 g/dL (0.7-1.3); GAMMA GLOBULIN 1.9 g/dL (0.4-1.8); MONOCLONAL SPIKE Not Observed g/dL (Not Observ); PROTEIN TOTAL SERUM 7.2 g/dL (6.0-8.5)
== END ==
LOC: OD 12:30
PROVIDERS: ATTEND Internal Medicine Nephrology
DX: I12.9 Hypertensive chronic kidney disease with stage 1 through stage 4 chronic kidney disease, or unspecified chronic kidney disease (principal); N18.3 Chronic kidney disease, stage 3 (moderate); I50.9 Heart failure, unspecified; E11.9 Type 2 diabetes mellitus without complications; D64.9 Anemia, unspecified; E87.5 Hyperkalemia
CPT/HCPCS: 36415; 80053; 82728; 83540; 83550; 83970; 84100; 84132; 84165; 84443; 85027

== ENCOUNTER 2017-10-20 17:19 | Emergency (ER) | payer MEDICARE, OTHER ==
[2017-10-20 17:27] VITALS: BP 150/85
[2017-10-20] MEDS ORDERED: LIDOCAINE 2% URO-JET 5 ML KIT MM ONE (19:01)
--- NOTE | 2017-10-20 19:09 | ER Document Report ---
ED General - General Chief Complaint: Inability to Void Stated Complaint: UNABLE TO URINATE Time Seen by Provider: 10/20/17 18:55 TRAVEL OUTSIDE OF THE [place] IN LAST 30 DAYS: No - HPI Notes: 87-year-old male presents with urinary retention for the past 7 hours. He believes he was able to urinate last around 12 PM. He dribbled a small amount of urine in triage. Denies history of urinary incontinence. Denies history of prostate issues. He noticed a small amount of blood in his urine over the past 3 days. Denies fevers or chills. Has small amount of low back pain with chronic kidney disease. Not on dialysis. Denies abdominal pain or swelling. Denies burning with urination. - Related Data Allergies/Adverse Reactions: No Known Allergies Allergy (Verified 10/20/17 17:20) Past Medical History - Social History Smoking Status: Unknown if Ever Smoked Chew tobacco use (# tins/day): No Frequency of alcohol use: NONE IN 6 MONTHS Drug Abuse: None Family History: Reviewed & Not Pertinent, Other Patient has suicidal ideation: No Patient has homicidal ideation: No - Past Medical History Cardiac Medical History: Reports: Hx Atrial Fibrillation, Hx Hypercholesterolemia, Hx Hypertension Pulmonary Medical History: Reports: Hx COPD Neurological Medical History: Denies: Hx Cerebrovascular Accident Endocrine Medical History: Reports: 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 Denies: Hx Open Heart Surgery, Hx Pacemaker - Immunizations Hx Diphtheria, Pertussis, Tetanus Vaccination: Yes Hx Pneumococcal Vaccination: 12/16/12 Review of Systems - Review of Systems Notes: Constitutional: Negative for fever. HENT: Negative for sore throat. Eyes: Negative for visual changes. Cardiovascular: Negative for chest pain. Respiratory: Negative for shortness of breath. Gastrointestinal: Negative for abdominal pain, vomiting or diarrhea. Genitourinary: Negative for dysuria. Positive for urinary retention and hematuria Musculoskeletal: Positive for back pain. Skin: Negative for rash. Neurological: Negative for headaches, weakness or numbness. 10 point ROS negative except as marked above and in HPI. Physical Exam - Vital signs Vitals: Temp Pulse Resp BP Pulse Ox 97.3 F 82 18 150/85 H 92 10/20/17 17:26 10/20/17 17:26 10/20/17 17:26 10/20/17 17:26 10/20/17 17:26 - Notes Notes: PHYSICAL EXAMINATION: GENERAL: Well-appearing, well-nourished and in no acute distress. HEAD: Atraumatic, normocephalic. EYES: Pupils equal round and reactive to light, extraocular movements intact, conjunctiva are normal. ENT: nares patent, oropharynx clear without exudates. Moist mucous membranes. NECK: Normal range of motion, supple without lymphadenopathy LUNGS: Breath sounds clear to auscultation bilaterally and equal. No wheezes rales or rhonchi. HEART: Regular rate and rhythm, no chest wall tenderness ABDOMEN: Soft, nontender, normoactive bowel sounds. No guarding, no rebound. No masses appreciated. EXTREMITIES: Normal range of motion, chronic 2+ pitting edema bilateral ankles. No cyanosis. NEUROLOGICAL: Cranial nerves grossly intact. Normal speech, normal gait. Normal sensory and motor exams. PSYCH: Normal mood, normal affect. SKIN: Warm, Dry, normal turgor, no rashes or lesions noted. Chronic venous stasis changes Course - Re-evaluation Re-evalutation: 10/20/17 19:10 Very pleasant elderly male with reported urinary retention and hematuria. Will Place Justin catheter. 10/20/17 20:36 Patient had about 200 cc of bright red bloody urine after placement of Justin. No obvious clots. Urine consistent with infection. Cultures ordered and given Rocephin. Labs pending. 10/20/17 23:40 1 large clot passed with large amount of light bloody urine. Hemoglobin and creatinine near baseline. Will change to leg bag and refer to urology for catheter removal and cystoscopy. Placed on antibiotics. At this time will discharge with return precautions and follow-up recommendations. Verbal discharge instructions given a the bedside and opportunity for questions given. Medication warnings reviewed. Patient is in agreement with this plan and has verbalized understanding of return precautions and the need for primary care follow-up in the next 24-72 hours. - Vital Signs Vital signs: Temp Pulse Resp BP Pulse Ox 97.3 F 82 18 150/85 H 92 10/20/17 17:26 10/20/17 17:26 10/20/17 17:26 10/20/17 17:26 10/20/17 17:26 - Laboratory Result Diagrams: 10/20/17 22:01 10/20/17 22:01 Laboratory results interpreted by me: 10/20/17 10/20/17 10/20/17 19:12 22:01 22:01 RBC 3.54 L Hgb 10.5 L Hct 31.6 L Monocytes % 16.5 H Potassium 5.1 H Chloride 109 H BUN 49 H Creatinine 2.17 H Est GFR ( Amer) 35 L Est GFR (Non-Af Amer) 29 L Direct Bilirubin 0.5 H ALT 14 L Urine Protein >=500 H Urine Glucose (UA) 50 H Urine Blood LARGE H Urine Ascorbic Acid 20 H Discharge - Discharge Clinical Impression: Acute urinary retention Hematuria Qualifiers: Hematuria type: unspecified type Qualified Code(s): R31.9 - Hematuria, unspecified Urinary tract infection Qualifiers: Urinary tract infection type: acute cystitis Hematuria presence: with hematuria Qualified Code(s): N30.01 - Acute cystitis with hematuria Condition: Good Disposition: HOME, SELF-CARE Instructions: Justin Catheter Care ([facility]) Additional Instructions: You must call urologist on Sunday for further evaluation and catheter removal. You will likely need cystoscopy for further evaluation of bleeding. Take all antibiotic. Follow-up urine culture results with urologist. Return for any worsening or concerning symptoms. URINARY TRACT INFECTION: Your evaluation indicates that you have a urinary tract infection. This is due to germs growing in the bladder. This is a common problem. This infection usually responds quickly to antibiotics. Your antibiotic should be taken exactly as prescribed. Drink plenty of fluids -- three to four quarts a day. Occasionally, a bladder anesthetic will be prescribed to help stop the feeling of urgency until the antibiotic has a chance to clear the infection. This may cause your urine to be dark orange. Certain urine infections require a culture. If the doctor obtained a culture, the results will be back in two days. You should call to see if a change in treatment is needed. A repeat urinalysis after you finish treatment is often recommended. The physician will let you know if further testing is required. Call the doctor if you develop fever, chills, flank pain, inability to urinate, or blood in the urine. ANTIBIOTIC THERAPY: You have been given an antibiotic prescription. It's important that you take all the medication, unless instructed otherwise by your physician. Failure to complete the entire course can result in relapse of your condition. Common side effects of antibiotics include nausea, intestinal cramping, or diarrhea. Women may develop vaginal yeast infections, and babies can get yeast (thrush) in the mouth following the use of antibiotics. Contact your physician if you develop significant side effects from this medication. Allergy to this antibiotic can result in hives, wheezing, faintness, or itching. If symptoms of allergy occur, stop the medication and call the doctor. CEPHALEXIN: The antibiotic you've been prescribed is a member of the cephalosporin class. This type of antibiotic covers a wide variety of infections, including those of the skin, lungs, and urinary tract. It's useful for staph infections. This antibiotic is slightly similar to the penicillin family. In rare cases , a person who is allergic to penicillin will also be allergic to this medication. If you have had a severe allergic reaction to penicillin, and have not taken this antibiotic since that time, notify your doctor. Antibiotics which cover many germs ("broad spectrum" antibiotics) are more likely to cause diarrhea or "yeast" infections. Women prone to vaginal yeast problems may suffer an attack after taking this antibiotic. In infants, oral thrush (white spots "stuck" on the cheek) or yeast diaper rash may result. See your doctor if these problems occur. Call at once if you develop itching, hives , shortness of breath, or lightheadedness. FOLLOW-UP CARE: If you have been referred to a physician for follow-up care, call the physician s office for an appointment as you were instructed or within the next two days. If you experience worsening or a significant change in your symptoms, notify the physician immediately or return to the Emergency Department at any time for re-evaluation. Prescriptions: Cephalexin Monohydrate [Keflex 500 mg Capsule] 500 mg PO Q6H 10 Days #40 capsule Referrals: Steffanie DU MD [Primary Care Provider] - Follow up as needed [facility] [Provider Group] - 10/22/17
[2017-10-20 20:14] LABS: APPEARANCE,URINE CLOUDY; BILIRUBIN,URINE NEGATIVE (NEGATIVE); CALCIUM OXALATE CRYSTALS,URINE TOO NUMEROUS TO CNT /HPF; COLOR,URINE RED; GLUCOSE, URINE 50 mg/dL (NEGATIVE); KETONES,URINE NEGATIVE (NEGATIVE); LEUKOCYTE ESTERASE,URINE NEGATIVE (NEGATIVE); NITRITE,URINE NEGATIVE (NEGATIVE); PROTEIN,URINE >=500 mg/dL (NEGATIVE); URINE SPECIFIC GRAVITY 1.013; UROBILINOGEN,URINE NEGATIVE mg/dL (<2.0)
[2017-10-20] MEDS ORDERED: FLUCONAZOLE 100 MG TABLET PO ONE (20:34)
[2017-10-20] MEDS ORDERED: CEFTRIAXONE 1 GM/D5W RTU 1 GM/50 ML RTUPB IV ONE (20:34)
[2017-10-20] MEDS ORDERED: CEFTRIAXONE INJ 500 MG VIAL ONE (21:50)
[2017-10-20 22:51] LABS: ABSOLUTE BASOPHILS # (AUTO) 0.1 10^3/uL (0.0-0.2); ABSOLUTE EOSINOPHILS # (AUTO) 0.3 10^3/uL (0.0-0.6); ABSOLUTE LYMPHOCYTES (AUTO) 1.6 10^3/uL (0.5-4.7); ABSOLUTE MONOCYTES (AUTO) 1.2 10^3/uL (0.1-1.4); ABSOLUTE NEUT (AUTO) 3.9 10^3/uL (1.7-8.2); EOSINOPHILS % (AUTO) 4.7 % (0-6); HEMATOCRIT 31.6 % (37.9-51.0); HEMOGLOBIN 10.5 g/dL (13.5-17.0); LYMPHOCYTES % (AUTO) 22.2 % (13-45); MEAN CORPUSCULAR HEMOGLOBIN 29.6 pg (27.0-33.4); MEAN CORPUSCULAR HGB CONC 33.1 g/dL (32.0-36.0); MEAN CORPUSCULAR VOLUME 90 fl (80-97); MONOCYTES % (AUTO) 16.5 % (3-13); PLATELET COUNT 236 10^3/uL (150-450); RED BLOOD COUNT 3.54 10^6/uL (4.35-5.55); RED CELL DISTRIBUTION WIDTH 13.7 % (11.5-14.0); SEGMENTED NEUTROPHILS % (AUTO) 55.6 % (42-78); TOTAL CELLS COUNTED % (AUTO) 100 %; WHITE BLOOD COUNT 7.1 10^3/uL (4.0-10.5)
[2017-10-20 23:27] LABS: ALANINE AMINOTRANSFERASE 14 U/L (21-72); ALBUMIN 3.8 g/dL (3.5-5.0); ALKALINE PHOSPHATASE 75 U/L (38-126); ANION GAP 11 (5-19); ASPARTATE AMINO TRANSFERASE 49 U/L (17-59); BILIRUBIN,DIRECT 0.5 mg/dL (0.0-0.4); BILIRUBIN,TOTAL 0.8 mg/dL (0.2-1.3); BLOOD UREA NITROGEN 49 mg/dL (7-20); CALCIUM 8.8 mg/dL (8.4-10.2); CARBON DIOXIDE 24 mmol/L (22-30); CHLORIDE 109 mmol/L (98-107); GLUCOSE 106 mg/dL (75-110); POTASSIUM 5.1 mmol/L (3.6-5.0); TOTAL PROTEIN 7.9 g/dL (6.3-8.2)
== END 2017-10-21 00:33 | disposition home or self-care (01) ==
LOC: ER 17:19
DX: N30.01 Acute cystitis with hematuria (principal); R33.9 Retention of urine, unspecified; I48.91 Unspecified atrial fibrillation; E78.00 Pure hypercholesterolemia, unspecified; I10 Essential (primary) hypertension; J44.9 Chronic obstructive pulmonary disease, unspecified; E11.9 Type 2 diabetes mellitus without complications; Z85.46 Personal history of malignant neoplasm of prostate
CPT/HCPCS: 36415; 51702; 80053; 81001; 85025; 87040; 87077; 87086; 87186; 99283

== ENCOUNTER 2017-10-22 12:05 | Emergency (ER) | payer MEDICARE, OTHER ==
[2017-10-22] MEDS ORDERED: TAMSULOSIN HCL 0.4 MG CAP.SR.24H PO ONE (13:02)
[2017-10-22 13:11] VITALS: BP 112/60
--- NOTE | 2017-10-22 13:12 | ER Document Report ---
ED General - General Chief Complaint: Problem with Urinary Catheter Stated Complaint: NEED CATH REMOVED Time Seen by Provider: 10/22/17 12:42 TRAVEL OUTSIDE OF THE [place] IN LAST 30 DAYS: No - HPI Patient complains to provider of: Request for Justin catheter removal Notes: Patient coming in for Justin catheter removal. 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 Patient states compliance with the antibiotics otherwise denies any pain denies any other symptoms denies any fever chills nausea vomiting diarrhea - Related Data Allergies/Adverse Reactions: No Known Allergies Allergy (Verified 10/22/17 12:50) Past Medical History - Social History Smoking Status: Former Smoker Chew tobacco use (# tins/day): No Frequency of alcohol use: None Drug Abuse: None Family History: Reviewed & Not Pertinent, Other Patient has suicidal ideation: No Patient has homicidal ideation: No - Past Medical History Cardiac Medical History: Reports: Hx Atrial Fibrillation, Hx Hypercholesterolemia, Hx Hypertension Pulmonary Medical History: Reports: Hx COPD Neurological Medical History: Denies: Hx Cerebrovascular Accident Endocrine Medical History: Reports: 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 Denies: Hx Open Heart Surgery, Hx Pacemaker - Immunizations Hx Diphtheria, Pertussis, Tetanus Vaccination: Yes Hx Pneumococcal Vaccination: 12/16/12 Review of Systems - Review of Systems Constitutional: Other - Justin catheter removal EENT: No symptoms reported Cardiovascular: No symptoms reported Respiratory: No symptoms reported Gastrointestinal: No symptoms reported Genitourinary: No symptoms reported Male Genitourinary: No symptoms reported Musculoskeletal: No symptoms reported Skin: No symptoms reported Hematologic/Lymphatic: No symptoms reported Neurological/Psychological: No symptoms reported -: Yes All other systems reviewed and negative Physical Exam - Vital signs Vitals: Pulse Resp BP Pulse Ox 86 16 124/67 95 10/22/17 12:10 10/22/17 12:10 10/22/17 12:10 10/22/17 12:10 Interpretation: Normal - General General appearance: Appears well, Alert - HEENT Head: Normocephalic, Atraumatic Eyes: Normal Pupils: PERRL - Respiratory Respiratory status: No respiratory distress Chest status: Nontender Breath sounds: Normal Chest palpation: Normal - Cardiovascular Rhythm: Regular Heart sounds: Normal auscultation Murmur: No - Abdominal Inspection: Normal Distension: No distension Bowel sounds: Normal Tenderness: Nontender Organomegaly: No organomegaly - Genitourinary Notes: Ujstin catheter in place with hematuria no clots - Back Back: Normal, Nontender - Extremities General upper extremity: Normal inspection, Nontender, Normal color, Normal ROM , Normal temperature General lower extremity: Normal inspection, Nontender, Normal color, Normal ROM , Normal temperature, Normal weight bearing. No: Jessica's sign - Neurological Neuro grossly intact: Yes Cognition: Normal Orientation: AAOx4 Jia Coma Scale Eye Opening: Spontaneous Jia Coma Scale Verbal: Oriented [place] Coma Scale Motor: Obeys Commands [place] Coma Scale Total: 15 Speech: Normal Motor strength normal: LUE, RUE, LLE, RLE Sensory: Normal - Psychological Associated symptoms: Normal affect, Normal mood - Skin Skin Temperature: Warm Skin Moisture: Dry Skin Color: Normal Course - Re-evaluation Re-evalutation: 10/22/17 20:[address] cannon on-call for urology recommends to start patient on Flomax for the next 2 weeks and then had the patient follow-up in his clinic for Justin catheter removal at that time. Not to remove the Justin catheter now. Patient is to continue his antibiotics follow-up with your primary care physician and he suggested patient to call the urologist today to make sure they have an appointment scheduled for 2 weeks from now. - Vital Signs Vital signs: Temp Pulse Resp BP Pulse Ox 77 17 112/60 99 10/22/17 13:10 10/22/17 13:10 10/22/17 13:10 10/22/17 13:10 Discharge - Discharge Clinical Impression: Acute urinary retention Condition: Good Disposition: HOME, SELF-CARE Instructions: Justin Catheter Care ([facility]) Additional Instructions: I discussed your case with the urologist on-call Dr. Shah. At this time he does not recommend that we remove her Justin catheter that we will place you on a medication called Flomax. He will be on this medication for approximately 2 weeks then follow-up with the urologist. I would recommend calling the urologist office to schedule appointment today. Return to ER symptoms worsen. Prescriptions: Tamsulosin HCl [Flomax 0.4 mg Cap.sr] 0.4 mg PO DAILY #14 cap.sr.24h Referrals: CORAZON SHAH MD [[facility]] - 11/05/17 (call today for appointment in approximately 2 weeks)
== END 2017-10-22 13:21 | disposition home or self-care (01) ==
LOC: ER 12:05
DX: R33.9 Retention of urine, unspecified (principal); R31.9 Hematuria, unspecified; J44.9 Chronic obstructive pulmonary disease, unspecified; Z87.891 Personal history of nicotine dependence; Z85.46 Personal history of malignant neoplasm of prostate; Z92.3 Personal history of irradiation
CPT/HCPCS: 99283; A9270

== ENCOUNTER 2017-10-28 15:07 | Emergency (ER) | payer MEDICARE, OTHER ==
--- NOTE | 2017-10-28 15:56 | ER Document Report ---
ED General - General Chief Complaint: Problem with Urinary Catheter Stated Complaint: POSSIBLE LOOSE CATHETER Time Seen by Provider: 10/28/17 15:51 TRAVEL OUTSIDE OF THE [place] IN LAST 30 DAYS: No - HPI Notes: 87-year-old male with indwelling Justin catheter, recently placed secondary to hematuria and urinary obstruction, presents with incontinence. Patient states while at [facility] she noticed some leaking of urine around his catheter. He is somewhat of a poor historian but has had some continued blood-tinged urine in his bag as well. Denies any fever, no abdominal pain. No burning. Seems to have abated and he wants to get checked out. He is scheduled to see his urologist this for reevaluation and likely Justin removal. He has been compliant with his Flomax. Gradual onset, nonradiating. No other modifying factors, no other associated symptoms, no other provocative or palliative factors. 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 Denies: Hx Open Heart Surgery, Hx Pacemaker - Immunizations Hx Diphtheria, Pertussis, Tetanus Vaccination: Yes Hx Pneumococcal Vaccination: 12/16/12 Review of Systems - Review of Systems Notes: Review of systems as in history of present illness, otherwise no significant headache, chest pain, abdominal pain. Denies any burning, dysuria, fever, back pain or other complaint Physical Exam - Vital signs Vitals: Pulse Resp BP Pulse Ox 81 20 157/80 H 100 10/28/17 15:21 10/28/17 15:21 10/28/17 15:21 10/28/17 15:21 - Notes Notes: General: Well developed . HEENT: Normocephalic, atraumatic. Pupils equal round reactive to light. No JVD. Chest: No trauma. Respiratory: Good air exchange, normal excursion. Cardiac: Regular rhythm. No murmurs or gallops. Abdomen: Soft, benign. Nondistended. Nontender. Back: No asymmetry or gross abnormality. Motor: Grossly normal power and tone. Neurologic: Alert, nonfocal. Cranial nerves II-12 are intact. Sensation intact. Vascular: Well perfused. Normal peripheral pulses. Skin: No petechiae or purpura. Genitalia: Uncircumcised male, catheter in place. No blood about the meatus. Justin bag shows some pinkish urine proximally 150 200 cc worth. Testes are distended and nontender. Course - Re-evaluation Re-evalutation: 10/28/17 15:55 Well-appearing male with what sounds like transient overflow incontinence. May have been due to blocked Justin, may resolve. Will attempt to flush and assessed , reevaluate. 10/28/17 16:48 Attempts were made to flush, but they were unsuccessful. The catheter was replaced and there is good flow now. He will continue his follow-up with urology, return if worsening. - Vital Signs Vital signs: Temp Pulse Resp BP Pulse Ox 81 20 157/80 H 100 10/28/17 15:21 10/28/17 15:21 10/28/17 15:21 10/28/17 15:21 Discharge - Discharge Clinical Impression: Incontinence Qualifiers: Incontinence type: urinary Urinary Incontinence type: overflow incontinence Qualified Code(s): N39.490 - Overflow incontinence Condition: Good Additional Instructions: Follow-up with your urologist as discussed Referrals: BEN WANG MD [Primary Care Provider] - Follow up as needed
[2017-10-28 17:01] VITALS: BP 172/78
== END 2017-10-28 17:17 | disposition home or self-care (01) ==
LOC: ER 15:07
DX: N39.490 Overflow incontinence (principal); R31.9 Hematuria, unspecified; N13.9 Obstructive and reflux uropathy, unspecified; I10 Essential (primary) hypertension; J44.9 Chronic obstructive pulmonary disease, unspecified; E11.9 Type 2 diabetes mellitus without complications; Z46.6 Encounter for fitting and adjustment of urinary device; Z79.899 Other long term (current) drug therapy; Z85.46 Personal history of malignant neoplasm of prostate; Z92.3 Personal history of irradiation
CPT/HCPCS: 51702; 99283

== ENCOUNTER → 2017-11-15 | Outpatient (CLI) | payer MEDICARE, OTHER ==
[2017-11-15 13:09] LABS: HEMATOCRIT 26.9 % (37.9-51.0); MEAN CORPUSCULAR HEMOGLOBIN 29.6 pg (27.0-33.4); MEAN CORPUSCULAR HGB CONC 33.6 g/dL (32.0-36.0); MEAN CORPUSCULAR VOLUME 88 fl (80-97); PLATELET COUNT 302 10^3/uL (150-450); RED BLOOD COUNT 3.05 10^6/uL (4.35-5.55); RED CELL DISTRIBUTION WIDTH 13.6 % (11.5-14.0); WHITE BLOOD COUNT 6.2 10^3/uL (4.0-10.5)
[2017-11-15 13:37] LABS: ANION GAP 10 (5-19); BLOOD UREA NITROGEN 61 mg/dL (7-20); CALCIUM 8.5 mg/dL (8.4-10.2); CARBON DIOXIDE 23 mmol/L (22-30); CHLORIDE 113 mmol/L (98-107); GLUCOSE 88 mg/dL (75-110); IRON(TIBC) 53.1 ug/dL (49-181); PHOSPHORUS 4.8 mg/dL (2.5-4.5); POTASSIUM 5.9 mmol/L (3.6-5.0); SODIUM 145.8 mmol/L (137-145)
[2017-11-15 13:44] LABS: APPEARANCE,URINE CLOUDY; BILIRUBIN,URINE NEGATIVE (NEGATIVE); COLOR,URINE YELLOW; GLUCOSE, URINE NEGATIVE (NEGATIVE); KETONES,URINE NEGATIVE (NEGATIVE); LEUKOCYTE ESTERASE,URINE LARGE (NEGATIVE); NITRITE,URINE NEGATIVE (NEGATIVE); PROTEIN,URINE >=500 mg/dL (NEGATIVE); URINE SPECIFIC GRAVITY 1.013; UROBILINOGEN,URINE NEGATIVE mg/dL (<2.0)
[2017-11-16 15:38] LABS: A/G RATIO 0.8 (0.7-1.7); ALBUMIN 2 2.9 g/dL (2.9-4.4); ALPHA-2-GLOBULIN 2 0.8 g/dL (0.4-1.0); BETA GLOBULINS 1.1 g/dL (0.7-1.3); GAMMA GLOBULIN 1.7 g/dL (0.4-1.8); GLOBULIN TOTAL 3.7 g/dL (2.2-3.9); MONOCLONAL SPIKE Not Observed g/dL (Not Observ); PROTEIN TOTAL SERUM 6.6 g/dL (6.0-8.5)
== END ==
LOC: OD 12:07
PROVIDERS: ATTEND Internal Medicine Nephrology
DX: N18.3 Chronic kidney disease, stage 3 (moderate) (principal); I50.9 Heart failure, unspecified; R80.9 Proteinuria, unspecified; D64.9 Anemia, unspecified
CPT/HCPCS: 36415; 80048; 81001; 82570; 82728; 83540; 83550; 83970; 84100; 84156; 84165; 85027

== ENCOUNTER → 2017-11-19 | Outpatient (CLI) | payer MEDICARE, OTHER | LOC: OD 10:07 | PROVIDERS: ATTEND Internal Medicine Nephrology | DX: E87.5 Hyperkalemia (principal) | CPT/HCPCS: 36415; 84132 ==

== ENCOUNTER → 2017-11-26 | Outpatient (CLI) | payer MEDICARE, OTHER ==
[2017-11-26 11:53] LABS: HEMATOCRIT 29.4 % (37.9-51.0); HEMOGLOBIN 9.8 g/dL (13.5-17.0); MEAN CORPUSCULAR HEMOGLOBIN 30.1 pg (27.0-33.4); MEAN CORPUSCULAR HGB CONC 33.3 g/dL (32.0-36.0); MEAN CORPUSCULAR VOLUME 90 fl (80-97); PLATELET COUNT 247 10^3/uL (150-450); RED BLOOD COUNT 3.26 10^6/uL (4.35-5.55); RED CELL DISTRIBUTION WIDTH 14.1 % (11.5-14.0); WHITE BLOOD COUNT 6.4 10^3/uL (4.0-10.5)
[2017-11-26 12:21] LABS: ANION GAP 14 (5-19); BLOOD UREA NITROGEN 47 mg/dL (7-20); CALCIUM 9.1 mg/dL (8.4-10.2); CARBON DIOXIDE 16 mmol/L (22-30); CHLORIDE 114 mmol/L (98-107); GLUCOSE 99 mg/dL (75-110); SODIUM 144.3 mmol/L (137-145)
== END ==
LOC: OD 11:01
PROVIDERS: ATTEND Internal Medicine Nephrology
DX: N18.3 Chronic kidney disease, stage 3 (moderate) (principal); I50.9 Heart failure, unspecified; R80.9 Proteinuria, unspecified; D64.9 Anemia, unspecified
CPT/HCPCS: 36415; 80048; 85027

== ENCOUNTER 2017-11-27 15:39 | Emergency (ER) | payer MEDICARE, OTHER ==
--- NOTE | 2017-11-27 16:27 | ER Document Report ---
ED Medical Screen (RME) - General Chief Complaint: Abnormal Lab Results Stated Complaint: ABNORMAL LABS Time Seen by Provider: 11/27/17 16:24 Notes: RAPID MEDICAL EVALUATION DISCLOSURE I have seen this patient as part of a Rapid Medical Evaluation and, if applicable, placed any initially appropriate orders. The patient will be seen and fully evaluated, including a full history and physical exam, by a provider ( in Main ED or Fast Track) when a room becomes available. 87-year-old male sent over by his press operator automatic Dr. Simpson for abnormal labs ( drawn yesterday). He received a phone call telling him to come immediately to the hospital. He does not know the name of the abnormal lab. He states he feels fine and does not have any symptoms. He is not currently on dialysis. He does not have a fistula/shunt or a dialysis line. EXAM CTAB RRR TRAVEL OUTSIDE OF THE [place] 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 Denies: Hx Open Heart Surgery, Hx Pacemaker - Immunizations Hx Diphtheria, Pertussis, Tetanus Vaccination: Yes History of Influenza Vaccine for 12/2016 - 05/2017 Season: Yes Influenza Administration Date for 12/2016 - 05/2017 Season: 01/31/17 Physical Exam - Vital signs Vitals: Temp Pulse BP Pulse Ox 97.5 F 68 141/56 H 96 11/27/17 15:44 11/27/17 15:44 11/27/17 15:44 11/27/17 15:44 Course - Vital Signs Vital signs: Temp Pulse Resp BP Pulse Ox 97.5 F 68 141/56 H 96 11/27/17 15:44 11/27/17 15:44 11/27/17 15:44 11/27/17 15:44 Doctor's Discharge - Discharge Referrals: Steffanie SIMPSON MD [Primary Care Provider] - Follow up as needed
[2017-11-27 17:27] LABS: ABSOLUTE BASOPHILS # (AUTO) 0.1 10^3/uL (0.0-0.2); ABSOLUTE EOSINOPHILS # (AUTO) 0.3 10^3/uL (0.0-0.6); ABSOLUTE LYMPHOCYTES (AUTO) 1.6 10^3/uL (0.5-4.7); ABSOLUTE MONOCYTES (AUTO) 1.2 10^3/uL (0.1-1.4); ABSOLUTE NEUT (AUTO) 4.2 10^3/uL (1.7-8.2); BASOPHILS % (AUTO) 1.2 % (0-2); EOSINOPHILS % (AUTO) 4.2 % (0-6); HEMATOCRIT 27.8 % (37.9-51.0); HEMOGLOBIN 9.1 g/dL (13.5-17.0); LYMPHOCYTES % (AUTO) 21.8 % (13-45); MEAN CORPUSCULAR HEMOGLOBIN 29.5 pg (27.0-33.4); MEAN CORPUSCULAR HGB CONC 32.6 g/dL (32.0-36.0); MEAN CORPUSCULAR VOLUME 90 fl (80-97); MONOCYTES % (AUTO) 16.5 % (3-13); PLATELET COUNT 268 10^3/uL (150-450); RED BLOOD COUNT 3.08 10^6/uL (4.35-5.55); RED CELL DISTRIBUTION WIDTH 14.4 % (11.5-14.0); SEGMENTED NEUTROPHILS % (AUTO) 56.3 % (42-78); TOTAL CELLS COUNTED % (AUTO) 100 %; WHITE BLOOD COUNT 7.4 10^3/uL (4.0-10.5)
[2017-11-27 17:31] LABS: INTERNATIONAL RATION (INR) 1.15; PROTHROMBIN TIME 15.3 SEC (11.4-15.4)
[2017-11-27 17:40] LABS: PARTIAL THROMBOPLASTIN TIME 30.6 SEC (23.5-35.8)
[2017-11-27 17:43] LABS: ALANINE AMINOTRANSFERASE 12 U/L (21-72); ALBUMIN 3.5 g/dL (3.5-5.0); ALKALINE PHOSPHATASE 104 U/L (38-126); ANION GAP 12 (5-19); ASPARTATE AMINO TRANSFERASE 20 U/L (17-59); BILIRUBIN,DIRECT 0.3 mg/dL (0.0-0.4); BILIRUBIN,TOTAL 0.3 mg/dL (0.2-1.3); BLOOD UREA NITROGEN 51 mg/dL (7-20); CARBON DIOXIDE 18 mmol/L (22-30); CHLORIDE 113 mmol/L (98-107); GLUCOSE 103 mg/dL (75-110); PHOSPHORUS 4.3 mg/dL (2.5-4.5); SODIUM 142.8 mmol/L (137-145); TOTAL PROTEIN 7.8 g/dL (6.3-8.2)
[2017-11-27 17:58] LABS: POTASSIUM 6.7 mmol/L (3.6-5.0)
[2017-11-27] MEDS ORDERED: DEXTROSE 50%-WATER 25 GM/50 ML DISP.SYRIN IV ONE (18:29)
[2017-11-27] MEDS ORDERED: INSULIN REG, HUMAN 100 UNIT/ML 3 ML VIAL (PYX) IV ONE (18:29)
[2017-11-27] MEDS ORDERED: SODIUM BICARBONATE 8.4% INJ 50 MEQ/50 ML DISP.SYRIN IV ONE (18:33)
[2017-11-27] MEDS ORDERED: SODIUM POLYSTYRENE SULFONATE 15 GM/60 ML PO ONE (18:41)
--- NOTE | 2017-11-27 18:52 | ER Document Report ---
ED General - General Chief Complaint: Abnormal Lab Results Stated Complaint: ABNORMAL LABS Time Seen by Provider: 11/27/17 16:24 TRAVEL OUTSIDE OF THE [place] IN LAST 30 DAYS: No - HPI Notes: 87-year-old male with a history of chronic kidney disease, not on dialysis who presents with hyperkalemia. Patient had routine labs drawn yesterday and was noted to have an elevated potassium. He was sent here to be evaluated. Labs drawn prior to my evaluation the patient showed potassium 6.7. This is verified with the labs be nonhemolyzed. Patient himself does not have his medication list with him and is uncertain what he takes but "takes a bunch of medicines". He denies any no vomiting or diarrhea. He has a known history of chronic kidney disease for which he sees Dr. Simpson. Denies any weakness. No abdominal pain. No other modifying factors, no other associated symptoms, no other provocative or palliative factors. Gradual onset. - Related Data Allergies/Adverse Reactions: No Known Allergies Allergy (Verified 11/27/17 16:19) Past Medical History - Social History Smoking Status: Smoker,Current Status Unk Chew tobacco use (# tins/day): No Frequency of alcohol use: None Drug Abuse: None Family History: Reviewed & Not Pertinent, Other Patient has suicidal ideation: No Patient has homicidal ideation: No - Past Medical History Cardiac Medical History: Reports: Hx Atrial Fibrillation, Hx Hypercholesterolemia, Hx Hypertension Pulmonary Medical History: Reports: Hx COPD Neurological Medical History: Reports: Hx Seizures. 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 Denies: Hx Open Heart Surgery, Hx Pacemaker - Immunizations Hx Diphtheria, Pertussis, Tetanus Vaccination: Yes Hx Pneumococcal Vaccination: 12/16/12 Review of Systems - Review of Systems Notes: Review of systems as in the history of present illness, otherwise negative x 10 systems. Physical Exam - Vital signs Vitals: Temp Pulse BP Pulse Ox 97.5 F 68 141/56 H 96 11/27/17 15:44 11/27/17 15:44 11/27/17 15:44 11/27/17 15:44 - Notes Notes: General: Well developed . HEENT: Normocephalic, atraumatic. Pupils equal round reactive to light. No JVD. Chest: No trauma. Respiratory: Good air exchange, normal excursion. Cardiac: Regular rhythm. No murmurs or gallops. Abdomen: Soft, benign. Nondistended. Nontender. Back: No asymmetry or gross abnormality. Motor: Grossly normal power and tone. Neurologic: Alert, nonfocal. Cranial nerves II-12 are intact. Sensation intact. Vascular: Well perfused. Normal peripheral pulses. Skin: No petechiae or purpura. Course - Re-evaluation Re-evalutation: 11/27/17 18:51 Elderly male who presents with hyperkalemia. Of note, he does not have any emily ECG changes. Case discussed briefly with his product accountant who agreed with emergent treatment. He requested however that we proceed with Kayexalate therapy at 45 g " recheck his potassium in a couple of hours". We will proceed with this and reevaluate. If no significant change, may need to be admitted for observation and continued evaluation and resuscitation. 12 Lead ECG Analysis A 12 lead ECG is obtained and shows a sinus rhythm, normal QRS, normal QTC. There are nonspecific ST-T changes, no evidence of acute ischemic changes. 11/28/17 00:23 Labs reviewed, CBC unremarkable. Creatinine is consistent with chronic renal failure. Of note, potassium is nonhemolyzed 6.7. Patient underwent the after mentioned therapy. Repeat potassium is 4.7. He is discharged home per discussion with his product accountant. He will have his creatinine checked tomorrow, return if worsening. - Vital Signs Vital signs: Temp Pulse Resp BP Pulse Ox 97.5 F 68 15 172/86 H 94 11/27/17 15:44 11/27/17 15:44 11/27/17 22:01 11/27/17 21:00 11/27/17 22:01 - Laboratory Result Diagrams: 11/27/17 17:02 11/27/17 23:22 Laboratory results interpreted by me: 11/27/17 11/27/17 11/27/17 17:02 17:02 20:36 RBC 3.08 L Hgb 9.1 L Hct 27.8 L RDW 14.4 H Monocytes % 16.5 H Potassium 6.7 H* Chloride 113 H Carbon Dioxide 18 L BUN 51 H Creatinine 2.75 H Est GFR ( Amer) 27 L Est GFR (Non-Af Amer) 22 L ALT 12 L Urine Protein >=500 H Urine Glucose (UA) 150 H Urine Blood SMALL H Discharge - Discharge Clinical Impression: Hyperkalemia Condition: Good Disposition: HOME, SELF-CARE Instructions: Kidney Failure ([facility]) Additional Instructions: You must follow-up with your physician later this morning for a recheck on your potassium. Referrals: Steffanie SIMPSON MD [Primary Care Provider] - Follow up as needed
--- NOTE | 2017-11-27 19:55 | EKG REPORT ---
SEVERITY:- OTHERWISE NORMAL ECG - SINUS RHYTHM BORDERLINE LEFT AXIS DEVIATION : Confirmed by: Moses Olea MD 27-Nov-2017 19:54:27
[2017-11-27 20:52] LABS: APPEARANCE,URINE CLEAR; BILIRUBIN,URINE NEGATIVE (NEGATIVE); COLOR,URINE STRAW; GLUCOSE, URINE 150 mg/dL (NEGATIVE); KETONES,URINE NEGATIVE (NEGATIVE); LEUKOCYTE ESTERASE,URINE NEGATIVE (NEGATIVE); NITRITE,URINE NEGATIVE (NEGATIVE); PROTEIN,URINE >=500 mg/dL (NEGATIVE); URINE SPECIFIC GRAVITY 1.011; UROBILINOGEN,URINE NEGATIVE mg/dL (<2.0)
[2017-11-28 00:45] VITALS: BP 166/91
== END 2017-11-28 00:45 | disposition home or self-care (01) ==
LOC: ER 15:39
DX: E87.5 Hyperkalemia (principal); I12.9 Hypertensive chronic kidney disease with stage 1 through stage 4 chronic kidney disease, or unspecified chronic kidney disease; E11.22 Type 2 diabetes mellitus with diabetic chronic kidney disease; N18.9 Chronic kidney disease, unspecified; Z79.899 Other long term (current) drug therapy; Z85.46 Personal history of malignant neoplasm of prostate; Z92.3 Personal history of irradiation
CPT/HCPCS: 93005; 99284; 96374; 36415; 83735; 84100; 84132; 85025; 85610; 85730; 80053; 81001; 93010; J3490 ×2; A9270; J1815

== ENCOUNTER 2017-12-26 13:47 | Emergency (ER) | payer MEDICARE, OTHER ==
--- NOTE | 2017-12-26 14:54 | ER Document Report ---
ED Medical Screen (RME) - General Chief Complaint: Urinary Problem Stated Complaint: URINARY PROBLEMS Time Seen by Provider: 12/26/17 14:51 Mode of Arrival: Wheelchair Information source: Patient Notes: Patient is an 87-year-old male who presents with chief complaint of urinary frequency and dysuria. Patient reports this is been going on for several days. Patient denies any nausea, vomiting, diarrhea or fever. Patient reports he was supposed to see his tour leader however the appointment was canceled. Patient states he has an appointment scheduled next week to see Dr. Simpson. Exam: No CVA tenderness bilaterally. I have greeted and performed a rapid initial assessment of this patient. A comprehensive ED assessment and evaluation of the patient, analysis of test results and completion of the medical decision making process will be conducted by additional ED providers. Dictation of this chart was performed using voice recognition software; therefore, there may be some unintended grammatical errors. TRAVEL OUTSIDE OF THE [place] IN LAST 30 DAYS: No - Related Data Allergies/Adverse Reactions: No Known Allergies Allergy (Verified 12/26/17 13:49) Past Medical History - Social History Frequency of alcohol use: None Drug Abuse: None - Past Medical History Cardiac Medical History: Reports: Hx Atrial Fibrillation, Hx Hypercholesterolemia, Hx Hypertension Pulmonary Medical History: Reports: Hx COPD Neurological Medical History: Reports: Hx Seizures. 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 Denies: Hx Open Heart Surgery, Hx Pacemaker - Immunizations Hx Diphtheria, Pertussis, Tetanus Vaccination: Yes History of Influenza Vaccine for 12/2016 - 05/2017 Season: Yes Influenza Administration Date for 12/2016 - 05/2017 Season: 01/31/17 Physical Exam - Vital signs Vitals: Temp Pulse Resp BP Pulse Ox 97.8 F 83 20 218/106 H 96 12/26/17 14:03 12/26/17 14:03 12/26/17 14:03 12/26/17 14:03 12/26/17 14:03 Course - Vital Signs Vital signs: Temp Pulse Resp BP Pulse Ox 97.8 F 83 20 218/106 H 96 12/26/17 14:03 12/26/17 14:03 12/26/17 14:03 12/26/17 14:03 12/26/17 14:03 Doctor's Discharge - Discharge Referrals: Steffanie SIMPSON MD [Primary Care Provider] - Follow up as needed
[2017-12-26 16:06] LABS: ABSOLUTE BASOPHILS # (AUTO) 0.1 10^3/uL (0.0-0.2); ABSOLUTE EOSINOPHILS # (AUTO) 0.2 10^3/uL (0.0-0.6); ABSOLUTE LYMPHOCYTES (AUTO) 1.1 10^3/uL (0.5-4.7); ABSOLUTE MONOCYTES (AUTO) 0.5 10^3/uL (0.1-1.4); ABSOLUTE NEUT (AUTO) 3.8 10^3/uL (1.7-8.2); EOSINOPHILS % (AUTO) 3.5 % (0-6); HEMATOCRIT 31.4 % (37.9-51.0); HEMOGLOBIN 10.5 g/dL (13.5-17.0); LYMPHOCYTES % (AUTO) 19.5 % (13-45); MEAN CORPUSCULAR HEMOGLOBIN 29.7 pg (27.0-33.4); MEAN CORPUSCULAR HGB CONC 33.4 g/dL (32.0-36.0); MEAN CORPUSCULAR VOLUME 89 fl (80-97); PLATELET COUNT 258 10^3/uL (150-450); RED BLOOD COUNT 3.52 10^6/uL (4.35-5.55); RED CELL DISTRIBUTION WIDTH 14.5 % (11.5-14.0); TOTAL CELLS COUNTED % (AUTO) 100 %; WHITE BLOOD COUNT 5.7 10^3/uL (4.0-10.5)
[2017-12-26 16:29] LABS: ALANINE AMINOTRANSFERASE 16 U/L (21-72); ALBUMIN 3.6 g/dL (3.5-5.0); ALKALINE PHOSPHATASE 88 U/L (38-126); ANION GAP 7 (5-19); ASPARTATE AMINO TRANSFERASE 24 U/L (17-59); BILIRUBIN,DIRECT 0.4 mg/dL (0.0-0.4); BILIRUBIN,TOTAL 0.6 mg/dL (0.2-1.3); BLOOD UREA NITROGEN 41 mg/dL (7-20); CARBON DIOXIDE 25 mmol/L (22-30); CHLORIDE 110 mmol/L (98-107); GLUCOSE 167 mg/dL (75-110); POTASSIUM 4.7 mmol/L (3.6-5.0); SODIUM 141.7 mmol/L (137-145); TOTAL PROTEIN 7.8 g/dL (6.3-8.2)
[2017-12-26 17:43] LABS: APPEARANCE,URINE SLIGHTLY-CLOUDY; BILIRUBIN,URINE NEGATIVE (NEGATIVE); COLOR,URINE YELLOW; GLUCOSE, URINE 150 mg/dL (NEGATIVE); KETONES,URINE NEGATIVE (NEGATIVE); LEUKOCYTE ESTERASE,URINE NEGATIVE (NEGATIVE); NITRITE,URINE NEGATIVE (NEGATIVE); PROTEIN,URINE >=500 mg/dL (NEGATIVE); URINE SPECIFIC GRAVITY 1.017; UROBILINOGEN,URINE NEGATIVE mg/dL (<2.0)
--- NOTE | 2017-12-26 18:12 | ER Document Report ---
ED General - General Chief Complaint: Urinary Problem Stated Complaint: URINARY PROBLEMS Time Seen by Provider: 12/26/17 14:51 Mode of Arrival: Wheelchair Information source: Patient TRAVEL OUTSIDE OF THE [place] IN LAST 30 DAYS: No - HPI Onset: Yesterday Onset/Duration: Sudden Quality of pain: Burning Associated symptoms: None Exacerbated by: Denies Relieved by: Denies Similar symptoms previously: No Recently seen / treated by doctor: No - Related Data Allergies/Adverse Reactions: No Known Allergies Allergy (Verified 12/26/17 13:49) Past Medical History - General Information source: Patient - Social History Smoking Status: Never Smoker Frequency of alcohol use: None Drug Abuse: None Family History: Reviewed & Not Pertinent, Other Patient has suicidal ideation: No Patient has homicidal ideation: No - Past Medical History Cardiac Medical History: Reports: Hx Atrial Fibrillation, Hx Hypercholesterolemia, Hx Hypertension Pulmonary Medical History: Reports: Hx COPD Neurological Medical History: Reports: Hx Seizures. 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 Denies: Hx Open Heart Surgery, Hx Pacemaker - Immunizations Hx Diphtheria, Pertussis, Tetanus Vaccination: Yes Hx Pneumococcal Vaccination: 12/16/12 Review of Systems - Review of Systems Constitutional: No symptoms reported EENT: No symptoms reported Cardiovascular: No symptoms reported Respiratory: No symptoms reported Gastrointestinal: No symptoms reported Genitourinary: Burning, Dysuria Male Genitourinary: No symptoms reported Musculoskeletal: No symptoms reported Skin: No symptoms reported Hematologic/Lymphatic: No symptoms reported Neurological/Psychological: No symptoms reported -: Yes All other systems reviewed and negative Physical Exam - Vital signs Vitals: Temp Pulse Resp BP Pulse Ox 97.8 F 83 20 218/106 H 96 12/26/17 14:03 12/26/17 14:03 12/26/17 14:03 12/26/17 14:03 12/26/17 14:03 - Notes Notes: PHYSICAL EXAMINATION: GENERAL: Well-appearing, well-nourished and in no acute distress. HEAD: Atraumatic, normocephalic. EYES: Pupils equal round and reactive to light, extraocular movements intact, sclera anicteric, conjunctiva are normal. ENT: Nares patent, oropharynx clear without exudates. Moist mucous membranes. NECK: Normal range of motion, supple without lymphadenopathy LUNGS: Breath sounds clear to auscultation bilaterally and equal. No wheezes rales or rhonchi. HEART: Regular rate and rhythm without murmurs ABDOMEN: Soft, nontender, nondistended abdomen. No guarding, no rebound. No masses appreciated. Musculoskeletal: Normal range of motion, no pitting or edema. No cyanosis. NEUROLOGICAL: Cranial nerves grossly intact. Normal speech, normal gait. Normal sensory, motor exams PSYCH: Normal mood, normal affect. SKIN: Warm, Dry, normal turgor, no rashes or lesions noted. Course - Re-evaluation Re-evalutation: 12/26/17 18:10 Patient presents to the ED with complaints of dysuria. She states that he had a Justin catheter placed last month for urinary retention. He does follow-up with urologist. Patient states that yesterday he began noticing some discomfort when he urinated. Patient states that today he is having burning and pain with urination. Mild blood noted. He denies any abdominal pain, nausea, vomiting, fever, chills. Labs obtained. Patient's creatinine is slightly elevated. It is comparable to previous. I will start the patient on an antibiotic for his urinary tract infection. I instructed the patient to follow-up with his primary care physician for his elevated creatinine, to follow -up with his urologist for the dysuria and blood in his urine. Patient is agreeable with plan of care. 12/26/17 18:12 - Vital Signs Vital signs: Temp Pulse Resp BP Pulse Ox 97.8 F 83 20 218/106 H 96 12/26/17 14:03 12/26/17 14:03 12/26/17 14:03 12/26/17 14:03 12/26/17 14:03 - Laboratory Result Diagrams: 12/26/17 15:52 12/26/17 15:52 Laboratory results interpreted by me: 12/26/17 12/26/17 12/26/17 15:52 15:52 15:57 RBC 3.52 L Hgb 10.5 L Hct 31.4 L RDW 14.5 H Chloride 110 H BUN 41 H Creatinine 2.03 H Est GFR ( Amer) 38 L Est GFR (Non-Af Amer) 31 L Glucose 167 H ALT 16 L Urine Protein >=500 H Urine Glucose (UA) 150 H Urine Blood LARGE H Discharge - Discharge Clinical Impression: Urinary tract infection Qualifiers: Urinary tract infection type: urethritis Qualified Code(s): N34.2 - Other urethritis Renal failure Qualifiers: Renal failure chronicity: chronic Chronic kidney disease stage: unspecified stage Qualified Code(s): N18.9 - Chronic kidney disease, unspecified Condition: Good Disposition: HOME, SELF-CARE Instructions: Urinary Tract Infection ([facility]) Prescriptions: Cephalexin Monohydrate [Keflex 500 mg Capsule] 500 mg PO BID 7 Days #14 capsule Referrals: Steffanie DU MD [ACTIVE STAFF] - Follow up as needed
[2017-12-26] MEDS ORDERED: CLONIDINE HCL 0.1 MG TABLET PO ONE (18:30)
[2017-12-26 19:43] VITALS: BP 194/104
== END 2017-12-26 19:45 | disposition home or self-care (01) ==
LOC: ER 13:47
DX: N34.2 Other urethritis (principal); N18.9 Chronic kidney disease, unspecified; R30.0 Dysuria; I48.91 Unspecified atrial fibrillation; E78.00 Pure hypercholesterolemia, unspecified; I10 Essential (primary) hypertension; Z85.46 Personal history of malignant neoplasm of prostate; E11.9 Type 2 diabetes mellitus without complications
CPT/HCPCS: 99283; 36415; 87086; 85025; 80053; 81001; A9270

== ENCOUNTER 2018-01-16 10:34 | Emergency (ER) | payer MEDICARE, OTHER ==
--- NOTE | 2018-01-16 11:07 | ER Document Report ---
ED Medical Screen (RME) - General Chief Complaint: Urinary Problem Stated Complaint: DIFFICULTY URINATING Time Seen by Provider: 01/16/18 11:05 Notes: 87 years old male presents today with incontinence of urine as well as difficulty passing urine. The history is not very clear. He says he urinated last night since then he has been dribbling but unable to urinate. Denies any dysuria frequency urgency denies any fever chills. TRAVEL OUTSIDE OF THE [place] IN LAST 30 DAYS: No - Related Data Allergies/Adverse Reactions: No Known Allergies Allergy (Verified 01/16/18 10:38) Past Medical History - Social History Frequency of alcohol use: Rare Drug Abuse: None - Past Medical History Cardiac Medical History: Reports: Hx Atrial Fibrillation, Hx Hypercholesterolemia, Hx Hypertension Pulmonary Medical History: Reports: Hx COPD Neurological Medical History: Reports: Hx Seizures. 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 Denies: Hx Open Heart Surgery, Hx Pacemaker - Immunizations Hx Diphtheria, Pertussis, Tetanus Vaccination: Yes History of Influenza Vaccine for 12/2016 - 05/2017 Season: Yes Influenza Administration Date for 12/2016 - 05/2017 Season: 01/31/17 Physical Exam - Vital signs Vitals: Temp Pulse Resp BP Pulse Ox 98.0 F 67 16 184/74 H 98 01/16/18 10:44 01/16/18 10:44 01/16/18 10:44 01/16/18 10:44 01/16/18 10:44 Course - Vital Signs Vital signs: Temp Pulse Resp BP Pulse Ox 98.0 F 67 16 184/74 H 98 01/16/18 10:44 01/16/18 10:44 01/16/18 10:44 01/16/18 10:44 01/16/18 10:44 Doctor's Discharge - Discharge Referrals: BEN WANG MD [Primary Care Provider] - Follow up as needed
[2018-01-16 12:18] LABS: APPEARANCE,URINE CLOUDY; BILIRUBIN,URINE NEGATIVE (NEGATIVE); COLOR,URINE YELLOW; GLUCOSE, URINE 50 mg/dL (NEGATIVE); KETONES,URINE NEGATIVE (NEGATIVE); LEUKOCYTE ESTERASE,URINE LARGE (NEGATIVE); NITRITE,URINE NEGATIVE (NEGATIVE); PROTEIN,URINE >=500 mg/dL (NEGATIVE); URINE SPECIFIC GRAVITY 1.011; UROBILINOGEN,URINE NEGATIVE mg/dL (<2.0)
--- NOTE | 2018-01-16 12:32 | ER Document Report ---
ED General - General Chief Complaint: Urinary Problem Stated Complaint: DIFFICULTY URINATING Time Seen by Provider: 01/16/18 11:05 Mode of Arrival: Ambulatory Information source: Patient Notes: This is an 87-year-old man with a history COPD (home oxygen), chronic kidney disease who presents to the emergency room with dysuria, complaints of difficulty urinating, urinary and urinary incontinence. Patient states that his symptoms started yesterday. He denies any fever, chills, nausea or vomiting. TRAVEL OUTSIDE OF THE [place] IN LAST 30 DAYS: No - HPI Onset: Yesterday Onset/Duration: Gradual Quality of pain: No pain Severity: None Pain Level: Denies Associated symptoms: None. denies: Chills, Fever, Shortness of breath Exacerbated by: Denies Relieved by: Denies Similar symptoms previously: No Recently seen / treated by doctor: No - Related Data Allergies/Adverse Reactions: No Known Allergies Allergy (Verified 01/16/18 10:38) Past Medical History - General Information source: Patient - Social History Smoking Status: Former Smoker Cigarette use (# per day): No Chew tobacco use (# tins/day): No Frequency of alcohol use: Rare Drug Abuse: None Lives with: Family Family History: Reviewed & Not Pertinent, Other Patient has suicidal ideation: No Patient has homicidal ideation: No - Past Medical History Cardiac Medical History: Reports: Hx Atrial Fibrillation, Hx Hypercholesterolemia, Hx Hypertension Pulmonary Medical History: Reports: Hx COPD Neurological Medical History: Reports: Hx Seizures. 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 Denies: Hx Open Heart Surgery, Hx Pacemaker - Immunizations Hx Diphtheria, Pertussis, Tetanus Vaccination: Yes Hx Pneumococcal Vaccination: 12/16/12 Review of Systems - Review of Systems Constitutional: denies: Chills, Fever EENT: No symptoms reported Cardiovascular: See HPI Respiratory: No symptoms reported Gastrointestinal: No symptoms reported Genitourinary: No symptoms reported Male Genitourinary: No symptoms reported Musculoskeletal: No symptoms reported Skin: No symptoms reported Hematologic/Lymphatic: No symptoms reported Neurological/Psychological: No symptoms reported Physical Exam - Vital signs Vitals: Temp Pulse Resp BP Pulse Ox 98.0 F 67 16 184/74 H 98 01/16/18 10:44 01/16/18 10:44 01/16/18 10:44 01/16/18 10:44 01/16/18 10:44 Notes: Physical exam: GENERAL: Patient is alert and oriented x3, no acute distress HEAD: Atraumatic, normocephalic. EYES: Pupils equal round and reactive to light, extraocular movements intact, sclera anicteric, conjunctiva are normal. ENT: TMs normal, nares patent, oropharynx clear without exudates. Moist mucous membranes. NECK: Normal range of motion, supple without obvious mass or JVD. LUNGS: Breath sounds clear to auscultation bilaterally and equal. No wheezes rales or rhonchi. HEART: Regular rate and rhythm without murmurs, rubs or gallops. ABDOMEN: Old laparotomy scar, well-healed. Soft, normoactive bowel sounds. No tenderness to palpation. No guarding, no rebound. No masses appreciated. There is no bladder distention. EXTREMITIES: Normal range of motion, no pitting or edema. No clubbing or cyanosis. NEUROLOGICAL: Cranial nerves II through XII grossly intact. Normal speech, moving all extremities. PSYCH: Normal mood, normal affect. SKIN: Warm, Dry, normal turgor, no rashes or lesions noted. Bedside ultrasound shows a small amount of urine in with some thickening of the bladder guerrero. Course - Re-evaluation Re-evalutation: 01/16/18 12:31 Straight cath was performed by the nurses and only 60 cc of urine was obtained. Patient does not have any clinical evidence of an obstructive uropathy. Does have symptoms suggestive of a UTI. - Vital Signs Vital signs: Temp Pulse Resp BP Pulse Ox 97.9 F 88 18 181/98 H 100 01/16/18 14:08 01/16/18 14:08 01/16/18 14:08 01/16/18 14:08 01/16/18 14:08 - Laboratory Result Diagrams: 01/16/18 12:45 01/16/18 12:45 Laboratory results interpreted by me: 01/16/18 01/16/18 01/16/18 11:58 12:45 12:45 WBC 12.3 H RBC 3.42 L Hgb 10.2 L Hct 31.2 L Seg Neutrophils % 81.7 H Lymphocytes % 8.5 L Absolute Neutrophils 10.0 H Potassium 5.1 H Chloride 108 H BUN 39 H Creatinine 2.25 H Est GFR ( Amer) 34 L Est GFR (Non-Af Amer) 28 L Glucose 150 H Urine Protein >=500 H Urine Glucose (UA) 50 H Urine Blood LARGE H Ur Leukocyte Esterase LARGE H Discharge - Discharge Clinical Impression: UTI Condition: Stable Disposition: HOME, SELF-CARE Additional Instructions: Your urine test shows evidence of a urine infection. I want you to take the antibiotics as prescribed. I want you to follow-up with Dr. Wang within the next week. Return to the emergency room for worsening pain, fever (temperature greater than 100.5), worsening difficulty urinating or any concerns or getting worse. Because of your urinary complaints, it is recommended that you follow-up with a urologist: [facility] [place] [facility] [address] [place], [place] [phone] [place] [facility] [address] [place], [place] [phone] Prescriptions: Cephalexin Monohydrate [Keflex 500 mg Capsule] 500 mg PO Q6H 5 Days capsule Referrals: BEN WANG MD [Primary Care Provider] - Follow up in 3-5 days
[2018-01-16 13:00] LABS: ABSOLUTE BASOPHILS # (AUTO) 0.1 10^3/uL (0.0-0.2); ABSOLUTE EOSINOPHILS # (AUTO) 0.1 10^3/uL (0.0-0.6); ABSOLUTE MONOCYTES (AUTO) 1.1 10^3/uL (0.1-1.4); BASOPHILS % (AUTO) 0.6 % (0-2); EOSINOPHILS % (AUTO) 0.4 % (0-6); HEMATOCRIT 31.2 % (37.9-51.0); HEMOGLOBIN 10.2 g/dL (13.5-17.0); LYMPHOCYTES % (AUTO) 8.5 % (13-45); MEAN CORPUSCULAR HGB CONC 32.8 g/dL (32.0-36.0); MEAN CORPUSCULAR VOLUME 91 fl (80-97); MONOCYTES % (AUTO) 8.8 % (3-13); PLATELET COUNT 246 10^3/uL (150-450); RED BLOOD COUNT 3.42 10^6/uL (4.35-5.55); SEGMENTED NEUTROPHILS % (AUTO) 81.7 % (42-78); TOTAL CELLS COUNTED % (AUTO) 100 %; WHITE BLOOD COUNT 12.3 10^3/uL (4.0-10.5)
[2018-01-16 13:14] LABS: ANION GAP 10 (5-19); BLOOD UREA NITROGEN 39 mg/dL (7-20); CALCIUM 8.7 mg/dL (8.4-10.2); CARBON DIOXIDE 23 mmol/L (22-30); CHLORIDE 108 mmol/L (98-107); GLUCOSE 150 mg/dL (75-110); POTASSIUM 5.1 mmol/L (3.6-5.0); SODIUM 140.6 mmol/L (137-145)
[2018-01-16] MEDS ORDERED: CEPHALEXIN 500 MG CAPSULE PO ONE (14:00)
[2018-01-16 14:09] VITALS: BP 181/98
== END 2018-01-16 14:17 | disposition home or self-care (01) ==
LOC: ER 10:34
DX: N39.0 Urinary tract infection, site not specified (principal); R39.198 Other difficulties with micturition; R30.0 Dysuria; R32 Unspecified urinary incontinence; Z87.891 Personal history of nicotine dependence; J44.9 Chronic obstructive pulmonary disease, unspecified; E11.9 Type 2 diabetes mellitus without complications; Z99.81 Dependence on supplemental oxygen
CPT/HCPCS: 99283; 51701; 36415; 87086; 85025; 87088; 80048; 81001; 87186; A9270

== ENCOUNTER 2018-02-25 11:07 | Emergency (ER) | payer MEDICARE, OTHER ==
[2018-02-25] MEDS ORDERED: IPRATROPIUM/ALBUTEROL 0.5-2.5 MG/3 ML AMPUL NEB ONE (11:15)
[2018-02-25] MEDS ORDERED: METHYLPREDNISOLONE INJ 40 MG/1 ML SDV IV ONE (11:15)
[2018-02-25] MEDS ORDERED: ALBUTEROL SULFATE 0.083% NEB 2.5 MG/3 ML AMPUL NEB ONE (11:15)
[2018-02-25] MEDS ORDERED: NITROGLYCERIN 0.4 MG/TAB 25 TAB/BOTTLE SL ONE (11:16)
--- NOTE | 2018-02-25 11:21 | ER Document Report ---
ED Respiratory Problem - General Stated Complaint: DIFFICULTY BREATHING Time Seen by Provider: 02/25/18 11:15 TRAVEL OUTSIDE OF THE [place] IN LAST 30 DAYS: No - HPI Notes: Patient is a 87-year-old male that presents to the emergency department for chief complaint of shortness of breath. Patient presents by EMS on BiPAP. HPI is limited because of his current respiratory distress. Patient called EMS and complained of shortness of breath for the last 2 days. He is denying any associated chest pain. He does have a history of COPD but denies history of congestive heart failure. He denies feeling more swollen than usual. EMS gave patient 1.5 inches of Nitropaste on his chest for reported bibasilar rales. They state he was oxygenating in the 60s and 70s on room air when they arrived at his home. EMS states the highest they were able to get his oxygen and BiPAP was 88%. Patient states he is currently feeling better than when he initially called EMS. Past Medical History: COPD, hypertension, diabetes Past Surgical History: Reviewed in chart Social History: Reviewed in chart Family History: Reviewed and noncontributory for presenting illness Allergies: Reviewed, see documented allergy list. REVIEW OF SYSTEMS: CONSTITUTIONAL : No fever No chills diaphoresis No recent illness EENT: No vision changes No congestion No sore throat CARDIOVASCULAR: No chest pain No palpitations RESPIRATORY: shortness of breath No cough difficulty breathing GASTROINTESTINAL: No abdominal pain No nausea No vomiting No diarrhea GENITOURINARY: No dysuria No hematuria No difficulty urinating MUSCULOSKELETAL: No back pain No leg pain No arm pain SKIN: No rashes No lesions LYMPHATIC: No swollen, enlarged glands. NEUROLOGICAL: No lightheadedness No headache No weakness No paresthesias PSYCHIATRIC: No anxiety No depression PHYSICAL EXAMINATION: Vital signs reviewed, nursing noted reviewed. GENERAL: Well-appearing, well-nourished moderate distress HEAD: Atraumatic, normocephalic. EYES: Eyes appear normal, extraocular movements intact, sclera anicteric, conjunctiva are normal. ENT: nares patent, oropharynx clear without exudates. Moist mucous membranes. NECK: Normal range of motion, supple without lymphadenopathy LUNGS: Diminished lung sounds bilaterally. No rhonchi or wheezing. Tachypnea, tripoding, pursed lip breathing, speaking in one-word sentences HEART: Regular rate and rhythm without murmurs ABDOMEN: Soft, nontender, normoactive bowel sounds. No rebound, guarding, or rigidity. No masses appreciated. EXTREMITIES: Nontender, good range of motion, +2 pitting edema bilateral lower extremities NEUROLOGICAL: No focal neurological deficits. Moves all extremities spontaneously Motor and sensory grossly intact on exam. PSYCH: Normal mood, normal affect. SKIN: Warm, Dry, normal turgor, no rashes or lesions noted on exposed skin - Related Data Allergies/Adverse Reactions: No Known Allergies Allergy (Verified 01/16/18 10:38) Past Medical History - Social History Smoking Status: Never Smoker Family History: Reviewed & Not Pertinent, Other - Past Medical History Cardiac Medical History: Reports: Hx Atrial Fibrillation, Hx Hypercholesterolemia, Hx Hypertension Pulmonary Medical History: Reports: Hx COPD Neurological Medical History: Reports: Hx Seizures. 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 Denies: Hx Open Heart Surgery, Hx Pacemaker - Immunizations Hx Diphtheria, Pertussis, Tetanus Vaccination: Yes Hx Pneumococcal Vaccination: 12/16/12 Physical Exam - Vital signs Vitals: Temp Pulse Resp BP Pulse Ox 97.8 F 83 30 H 179/92 H 87 L 02/25/18 11:11 02/25/18 11:11 02/25/18 11:11 02/25/18 11:11 02/25/18 11:11 Course - Re-evaluation Re-evalutation: 02/25/18 11:20 Vitals reviewed. Nursing notes reviewed. Patient presented hypoxic on BiPAP. When he was transitioned to our BiPAP machine his oxygen increased to 98%. Patient was given 1 sublingual nitro in the emergency room for his respiratory failure in the setting of edema and concern for new onset heart failure. Patient given albuterol, DuoNeb and Solu-Medrol for COPD. 02/25/18 12:45 Patient reevaluated and appears much more comfortable. His respirations have significantly improved and he is only using mild accessory muscle use. Patient' s chest x-ray is consistent with cardiomegaly and pulmonary edema concerning for new onset congestive heart failure. Patient's troponin is elevated at 0.1. My concern is for NSTEMI causing acute congestive heart failure. He has no history of congestive heart failure in the past and is not on any diuretics at home. Patient was given Lasix for diuresis and has had urinary output. His lab work does show renal insufficiency which is baseline for him. His potassium is slightly elevated at 5.3 with no EKG changes. Patient will be started on heparin infusion for NSTEMI. Patient will be transferred to [facility] for further cardiac evaluation and possible heart catheterization. Patient and are in agreement with this plan. He is improved at this time and stable for transportation. Laboratory 02/25/18 02/25/18 02/25/18 11:30 11:30 11:30 WBC 15.0 H RBC 2.98 L Hgb 8.6 L Hct 26.8 L MCV 90 MCH 28.7 MCHC 32.0 RDW 13.3 Plt Count 243 Seg Neutrophils % 86.8 H Lymphocytes % 5.4 L Monocytes % 7.4 Eosinophils % 0.1 Basophils % 0.3 Absolute Neutrophils 13.0 H Absolute Lymphocytes 0.8 Absolute Monocytes 1.1 Absolute Eosinophils 0.0 Absolute Basophils 0.0 Carbonic Acid HCO3/H2CO3 Ratio ABG pH ABG pCO2 ABG pO2 ABG HCO3 ABG Total CO2 ABG O2 Saturation ABG Base Excess FiO2 Sodium 145.6 H Potassium 5.3 H Chloride 110 H Carbon Dioxide 23 Anion Gap 13 BUN 61 H Creatinine 2.66 H Est GFR ( Amer) 28 L Est GFR (Non-Af Amer) 23 L Glucose 229 H Calcium 8.6 Total Bilirubin 0.7 Direct Bilirubin 0.4 Neonat Total Bilirubin Not Reportable Neonat Direct Bilirubin Not Reportable Neonat Indirect Bili Not Reportable AST 58 ALT 27 Alkaline Phosphatase 88 Troponin I 0.110 NT-Pro-B Natriuret Pep 8020 H Total Protein 6.9 Albumin 3.2 L 02/25/18 11:30 WBC RBC Hgb Hct MCV MCH MCHC RDW Plt Count Seg Neutrophils % Lymphocytes % Monocytes % Eosinophils % Basophils % Absolute Neutrophils Absolute Lymphocytes Absolute Monocytes Absolute Eosinophils Absolute Basophils Carbonic Acid 0.99 L HCO3/H2CO3 Ratio 21:1 ABG pH 7.43 ABG pCO2 32.8 L ABG pO2 72.1 L ABG HCO3 21.1 ABG Total CO2 22.1 L ABG O2 Saturation 95.0 ABG Base Excess -2.7 FiO2 50% Sodium Potassium Chloride Carbon Dioxide Anion Gap BUN Creatinine Est GFR ( Amer) Est GFR (Non-Af Amer) Glucose Calcium Total Bilirubin Direct Bilirubin Neonat Total Bilirubin Neonat Direct Bilirubin Neonat Indirect Bili AST ALT Alkaline Phosphatase Troponin I NT-Pro-B Natriuret Pep Total Protein Albumin Chest X-Ray 02/25/18 11:10 IMPRESSION: 1. Bilateral diffuse airspace disease in the lungs with some sparing of the apices- upper lungs common may be on the basis of infiltrates, edema. Bilateral small pleural effusions. 2. Cardiomegaly and pulmonary vascular congestion suggested. 02/25/18 13:06 Case was discussed with Dr. Pereira, emergency department aide at [facility]. He recommends stepdown unit admission and conversation with the hospitalist who is now being paged. 02/25/18 13:29 Case was discussed with Dr. Patton who accepts patient for admission at [facility]. Chest X-Ray 02/25/18 11:10 IMPRESSION: 1. Bilateral diffuse airspace disease in the lungs with some sparing of the apices- upper lungs common may be on the basis of infiltrates, edema. Bilateral small pleural effusions. 2. Cardiomegaly and pulmonary vascular congestion suggested. 02/25/18 13:30 - Vital Signs Vital signs: Temp Pulse Resp BP Pulse Ox 97.8 F 83 21 H 176/100 H 93 02/25/18 11:11 02/25/18 11:11 02/25/18 12:44 02/25/18 12:44 02/25/18 12:44 - Laboratory Result Diagrams: 02/25/18 11:30 02/25/18 11:30 Laboratory results interpreted by me: 02/25/18 02/25/18 02/25/18 11:30 11:30 11:30 WBC 15.0 H RBC 2.98 L Hgb 8.6 L Hct 26.8 L Seg Neutrophils % 86.8 H Lymphocytes % 5.4 L Absolute Neutrophils 13.0 H PT Carbonic Acid ABG pCO2 ABG pO2 ABG Total CO2 Sodium 145.6 H Potassium 5.3 H Chloride 110 H BUN 61 H Creatinine 2.66 H Est GFR ( Amer) 28 L Est GFR (Non-Af Amer) 23 L Glucose 229 H NT-Pro-B Natriuret Pep 8020 H Albumin 3.2 L 02/25/18 02/25/18 11:30 11:30 WBC RBC Hgb Hct Seg Neutrophils % Lymphocytes % Absolute Neutrophils PT 16.5 H Carbonic Acid 0.99 L ABG pCO2 32.8 L ABG pO2 72.1 L ABG Total CO2 22.1 L Sodium Potassium Chloride BUN Creatinine Est GFR ( Amer) Est GFR (Non-Af Amer) Glucose NT-Pro-B Natriuret Pep Albumin - EKG Interpretation by Me Additional EKG results interpreted by me: 02/25/18 12:13 Interpreted by myself [id number]: Normal sinus rhythm, rate 77, normal axis, no ectopy, no ST elevation, borderline prolonged QT with QT of 420 Critical Care Note - Critical Care Note Total time excluding time spent on procedures (mins): 45 Comments: Hypoxic respiratory failure. End STEMI. Requiring cardiovascular and respiratory stabilization with potential for decompensation. Discharge - Discharge Clinical Impression: Acute respiratory failure with hypoxia, New onset of congestive heart failure, Pleural effusion, NSTEMI (non-ST elevated myocardial infarction) Pulmonary edema Qualifiers: Chronicity: acute Qualified Code(s): J81.0 - Acute pulmonary edema Condition: Stable Disposition: [facility]
[2018-02-25] MEDS ORDERED: METHYLPREDNISOLONE INJ 125 MG/2 ML SDV ONE (11:37)
[2018-02-25 11:51] LABS: ABSOLUTE LYMPHOCYTES (AUTO) 0.8 10^3/uL (0.5-4.7); ABSOLUTE MONOCYTES (AUTO) 1.1 10^3/uL (0.1-1.4); ARTERIAL BLOOD BASE EXCESS -2.7 mmol/L; ARTERIAL BLOOD H2CO3 0.99 mmol/L (1.05-1.35); ARTERIAL BLOOD HCO3 21.1 mmol/L (20-24); ARTERIAL BLOOD PCO2 32.8 mmHg (35-45); ARTERIAL BLOOD PH 7.43 (7.35-7.45); ARTERIAL BLOOD PO2 72.1 mmHg (80-100); ARTERIAL BLOOD TOTAL CO2 22.1 mmol/L (23-27); BASOPHILS % (AUTO) 0.3 % (0-2); EOSINOPHILS % (AUTO) 0.1 % (0-6); HEMATOCRIT 26.8 % (37.9-51.0); HEMOGLOBIN 8.6 g/dL (13.5-17.0); LYMPHOCYTES % (AUTO) 5.4 % (13-45); MEAN CORPUSCULAR HEMOGLOBIN 28.7 pg (27.0-33.4); MEAN CORPUSCULAR VOLUME 90 fl (80-97); MONOCYTES % (AUTO) 7.4 % (3-13); PLATELET COUNT 243 10^3/uL (150-450); RED BLOOD COUNT 2.98 10^6/uL (4.35-5.55); RED CELL DISTRIBUTION WIDTH 13.3 % (11.5-14.0); SEGMENTED NEUTROPHILS % (AUTO) 86.8 % (42-78); TOTAL CELLS COUNTED % (AUTO) 100 %
[2018-02-25 11:52] LABS: ARTERIAL BLOOD FIO2 50%
[2018-02-25 12:12] LABS: ALANINE AMINOTRANSFERASE 27 U/L (21-72); ALBUMIN 3.2 g/dL (3.5-5.0); ALKALINE PHOSPHATASE 88 U/L (38-126); ANION GAP 13 (5-19); ASPARTATE AMINO TRANSFERASE 58 U/L (17-59); BILIRUBIN,DIRECT 0.4 mg/dL (0.0-0.4); BILIRUBIN,TOTAL 0.7 mg/dL (0.2-1.3); BLOOD UREA NITROGEN 61 mg/dL (7-20); CALCIUM 8.6 mg/dL (8.4-10.2); CARBON DIOXIDE 23 mmol/L (22-30); CHLORIDE 110 mmol/L (98-107); GLUCOSE 229 mg/dL (75-110); POTASSIUM 5.3 mmol/L (3.6-5.0); SODIUM 145.6 mmol/L (137-145); TOTAL PROTEIN 6.9 g/dL (6.3-8.2)
--- NOTE | 2018-02-25 12:26 | RADIOLOGY REPORT (SQ) ---
EXAM DESCRIPTION: CHEST SINGLE VIEW COMPLETED DATE/TIME: 02/25/2018 11:46 am REASON FOR STUDY: bed mp db COMPARISON: 05/30/2017 EXAM PARAMETERS: NUMBER OF VIEWS: One view. TECHNIQUE: Single frontal radiographic view of the chest acquired. RADIATION DOSE: NA LIMITATIONS: None. FINDINGS: LUNGS AND PLEURA: Bilateral diffuse airspace disease in the lungs with some sparing of th e apices- upper lungs. These findings may be on the basis of infiltrates, edema. Blunting of the co stophrenic angles bilaterally suggest effusions. No pneumothorax. MEDIASTINUM AND HILAR STRUCTURES: There is widening of the mediastinum may be related to patient pos itioning. HEART AND VASCULAR STRUCTURES: Cardiomegaly. Pulmonary vascular congestion is suggested. BONES: No acute findings. HARDWARE: None in the chest. OTHER: No other significant finding. IMPRESSION: 1. Bilateral diffuse airspace disease in the lungs with some sparing of the apices- upp er lungs common may be on the basis of infiltrates, edema. Bilateral small pleural effusions. 2. Cardiomegaly and pulmonary vascular congestion suggested. TECHNICAL DOCUMENTATION: JOB ID: [id number] [employer]- All Rights Reserved Reading location - IP/workstation name: [email or web address]
[2018-02-25 12:30] LABS: TROPONIN I 0.11 ng/mL
[2018-02-25] MEDS ORDERED: ASPIRIN 81 MG TABLET, CHEWABLE PO ONE (12:33)
[2018-02-25] MEDS ORDERED: HEPARIN SOD (PORCINE) 1,000 UNIT/ML 10 ML VIAL IV ONE (12:41)
[2018-02-25] MEDS ORDERED: HEPARIN SODIUM,PORCINE/D5W 25,000 UNIT/250 ML RTUINJ IV PRN (12:41)
[2018-02-25] MEDS ORDERED: FUROSEMIDE INJ/PF 40 MG/4 ML SDV IV ONE (12:43)
--- NOTE | 2018-02-25 12:50 | EKG REPORT ---
SEVERITY:- BORDERLINE ECG - SINUS RHYTHM ATRIAL PREMATURE COMPLEX BORDERLINE PROLONGED QT INTERVAL : Confirmed by: Moses Olea MD 25-Feb-2018 12:50:05
[2018-02-25 12:52] LABS: INTERNATIONAL RATION (INR) 1.27; PROTHROMBIN TIME 16.5 SEC (11.4-15.4)
[2018-02-25 12:53] LABS: PARTIAL THROMBOPLASTIN TIME 33.4 SEC (23.5-35.8)
[2018-02-25] MEDS ORDERED: HEPARIN SODIUM,PORCINE/D5W 25,000 UNIT/250 ML RTUINJ IV ONE (13:05)
[2018-02-25 15:41] VITALS: BP 162/85
[2018-02-25] MEDS ORDERED: HEPARIN SOD (PORCINE) 1,000 UNIT/ML 10 ML VIAL IV PRN (15:42)
== END 2018-02-25 15:40 | disposition short-term general hospital (02) ==
LOC: ER 11:07
DX: J96.01 Acute respiratory failure with hypoxia (principal); I11.0 Hypertensive heart disease with heart failure; I50.1 Left ventricular failure, unspecified; I21.4 Non-ST elevation (NSTEMI) myocardial infarction; J44.9 Chronic obstructive pulmonary disease, unspecified; N28.9 Disorder of kidney and ureter, unspecified; E11.9 Type 2 diabetes mellitus without complications; R61 Generalized hyperhidrosis; Z85.46 Personal history of malignant neoplasm of prostate; Z92.3 Personal history of irradiation
CPT/HCPCS: 93005; 96376; 94640 ×2; 99291; 96375; 96365; 96366; 36415; 82803; 85025; 85610; 85730; 80053; 84484; 83880; 71045; 93010; 94660; J1644 ×2; A9270 ×3; J1940; J2920; J7620